=== PATIENT | male | born 1960 | race Caucasian/White ===

== ENCOUNTER 2021-05-14 16:25 | Inpatient (IN) | payer SELFPAY ==
[~2021-05-14] VITALS: Ht 170.2 cm; Wt 64.1 kg
[2021-05-14] MEDS ORDERED: AZITHROMYCIN 500MG/ 250ML 250 ML IV ONE (17:15)
[2021-05-14] MEDS ORDERED: methylPREDNISolone SOD SUCC 125 MG/2 ML VL IV ONE (17:15)
[2021-05-14 18:01] LABS: Basophils # (auto) 0.1 10 ^3/uL (0-0.2); Basophils % (auto) 1.4 % (0.0-2.0); Eosinophils # (auto) 0 10 ^3/uL (0-0.8); Eosinophils % (auto) 0.1 % (0.0-7.0); Hematocrit 41.7 % (41.0-53.0); Lymphocytes # (auto) 0.7 10 ^3/uL (0.4-5.4); Lymphocytes % (auto) 7.2 % (10.0-50.0); Mean Corpuscular Hemoglobin 30.8 pg (28.0-32.0); Mean Corpuscular Hgb Conc. 33.5 g/dL (32.0-36.0); Mean Corpuscular Volume 91.9 fL (80.0-100.0); Monocytes # (auto) 0.6 10 ^3/uL (0-1.3); Monocytes % (auto) 6.6 % (0.0-12.0); Neutrophils # (auto) 8.1 10 ^3/uL (1.6-8.6); Neutrophils % (auto) 84.7 % (37.0-80.0); Red Blood Cells 4.54 10^6/uL (4.5-5.90); Red Cell Distribution Width 15.5 % (11.8-14.3); White Blood Cell 9.6 10^3/uL (4.4-10.8)
[2021-05-14 18:20] LABS: Calcium 8.6 mg/dL (8.5-10.1)
[2021-05-14] MEDS ORDERED: IOHEXOL 350 MG/ML 100ML IJ ONE (20:02)
[2021-05-14 20:59] LABS: Urine Bacteria NONE SEEN /hpf (None Seen); Urine Blood Negative /uL (Negative); Urine Specific Gravity 1.007 (1.001-1.035); Urine WBC 2 /hpf (0 - 3)
[2021-05-14] MEDS ORDERED: ONDANSETRON HCL 4 MG/2 ML VIAL IV PRN (23:00)
[2021-05-14] MEDS ORDERED: ACETAMINOPHEN 325 MG TAB PO PRN (23:00)
[2021-05-14] MEDS ORDERED: IPRATROPIUM BROM 0.5 MG/2.5ML INH SOL NEB PRN (23:00)
[2021-05-14] MEDS ORDERED: guaiFENesin 200 MG/10 ML UD GT PRN (23:00)
[2021-05-14] MEDS ORDERED: ALBUTEROL SULF 2.5 MG/0.5ML(0.5%) NEB SOLN NEB PRN (23:00)
[2021-05-14 23:36] VITALS: BP 143/92
[2021-05-14 23:50] VITALS: BP 150/105
[2021-05-15 00:04] LABS: Alcohol, Urine < 3.0 mg/dL (0-10); Amphetamine Screen, Urine NEGATIVE (NEGATIVE); Barbiturate Scree,Urine NEGATIVE (NEGATIVE); Benzodiazephine Screen, Urine NEGATIVE (NEGATIVE); Cannabinoid Screen, Urine POSITIVE (NEGATIVE); Cocaine Screen, Urine POSITIVE (NEGATIVE); Opiate Scree,Urine NEGATIVE (NEGATIVE); Phencyclidine Screen, Urine POSITIVE (NEGATIVE)
[2021-05-15] MEDS: ALBUTEROL SULF 2.5 MG/0.5ML(0.5%) NEB SOLN NEB SCH ×5 (00:06→18:17)
[2021-05-15] MEDS: IPRATROPIUM BROM 0.5 MG/2.5ML INH SOL NEB SCH ×5 (00:06→18:17)
[2021-05-15] MEDS ORDERED: NICO14DI29 TOP (00:38)
[2021-05-15] MEDS ORDERED: FLUC200T50 PO (00:38)
[2021-05-15] MEDS ORDERED: PANT40T PO (00:38)
[2021-05-15] MEDS ORDERED: MONT-8 PO (00:38)
[2021-05-15] MEDS ORDERED: SULF400T (00:38)
[2021-05-15 05:51] LABS: Basophils # (auto) 0.1 10 ^3/uL (0-0.2); Basophils % (auto) 0.8 % (0.0-2.0); Eosinophils # (auto) 0 10 ^3/uL (0-0.8); Eosinophils % (auto) 0.1 % (0.0-7.0); Hematocrit 42.9 % (41.0-53.0); Hemoglobin 14.6 g/dL (13.5-17.5); Lymphocytes # (auto) 0.5 10 ^3/uL (0.4-5.4); Lymphocytes % (auto) 4.8 % (10.0-50.0); Mean Corpuscular Hemoglobin 31.5 pg (28.0-32.0); Mean Corpuscular Hgb Conc. 34.1 g/dL (32.0-36.0); Mean Corpuscular Volume 92.4 fL (80.0-100.0); Monocytes # (auto) 0.1 10 ^3/uL (0-1.3); Neutrophils # (auto) 8.8 10 ^3/uL (1.6-8.6); Neutrophils % (auto) 93.3 % (37.0-80.0); Red Blood Cells 4.64 10^6/uL (4.5-5.90); Red Cell Distribution Width 15.3 % (11.8-14.3); White Blood Cell 9.5 10^3/uL (4.4-10.8)
[2021-05-15 06:19] LABS: BUN/Creatinine Ratio 18.1
[2021-05-15 06:20] LABS: Bilirubin, Total 0.7 mg/dL (0.2-1.0); Calcium 9.2 mg/dL (8.5-10.1); Total Protein 7.3 g/dL (6.4-8.2)
[2021-05-15] MEDS: methylPREDNISolone SOD SUCC 125 MG/2 ML VL IV SCH ×6 (06:20→23:55)
[2021-05-15 09:00] VITALS: BP 152/116
[2021-05-15 09:30] VITALS: BP 147/94
[2021-05-15] MEDS: FAMOTIDINE 20 MG TAB PO SCH (10:50)
[2021-05-15] MEDS: ENOXAPARIN SOD 40 MG/0.4 ML SYRINGE SC SCH (10:50)
[2021-05-15] MEDS: NICOTINE 14 MG/24HR TOPICAL PATCH TD SCH (10:50)
[2021-05-15] MEDS: levoFLOXacin 750MG 150 ML IV SCH (10:52)
[2021-05-15 13:00] VITALS: BP 156/110
[2021-05-15 17:00] VITALS: BP 157/88
[2021-05-15 22:11] VITALS: BP 158/94
[2021-05-16] MEDS: ALBUTEROL SULF 2.5 MG/0.5ML(0.5%) NEB SOLN NEB SCH ×4 (00:11→18:47)
[2021-05-16] MEDS: IPRATROPIUM BROM 0.5 MG/2.5ML INH SOL NEB SCH ×4 (00:11→18:47)
[2021-05-16 05:00] VITALS: BP 150/102
[2021-05-16 05:52] LABS: Hematocrit 41.5 % (41.0-53.0); Hemoglobin 13.7 g/dL (13.5-17.5); Mean Corpuscular Hemoglobin 30.7 pg (28.0-32.0); Mean Corpuscular Hgb Conc. 33.1 g/dL (32.0-36.0); Red Blood Cells 4.46 10^6/uL (4.5-5.90); Red Cell Distribution Width 15.6 % (11.8-14.3); White Blood Cell 16.8 10^3/uL (4.4-10.8)
[2021-05-16] MEDS: methylPREDNISolone SOD SUCC 125 MG/2 ML VL IV SCH (06:00)
[2021-05-16 06:12] LABS: Potassium 4.9 mmol/L (3.5-5.1)
[2021-05-16 06:19] LABS: Albumin 3.1 g/dL (3.4-5.0); Calcium 9.4 mg/dL (8.5-10.1)
[2021-05-16 06:21] LABS: Bilirubin, Total 0.6 mg/dL (0.2-1.0); Total Protein 7.2 g/dL (6.4-8.2)
[2021-05-16 06:27] LABS: Basophils % (manual) 0 (0.0-2.0); Blast Cells 0; Eosinophils % (manual) 0 (0-7); Metamyelocytes % 0; Monocytes % (manual) 0 (0-12); Myelocytes % 0; Promyelocytes % 0; Reactive Lymphocytes 0
[2021-05-16 07:31] LABS: Band Neutrophils % (manual) 12; Lymphocytes % (manual) 3 (10.0-50.0)
[2021-05-16 08:33] VITALS: BP 143/93
[2021-05-16] MEDS: levoFLOXacin 750MG 150 ML IV SCH (09:26)
[2021-05-16] MEDS: ENOXAPARIN SOD 40 MG/0.4 ML SYRINGE SC SCH (09:27)
[2021-05-16] MEDS: FAMOTIDINE 20 MG TAB PO SCH (09:33)
[2021-05-16] MEDS: NICOTINE 14 MG/24HR TOPICAL PATCH TD SCH (09:33)
[2021-05-16 13:00] VITALS: BP_SYST 102; BP_SYST 156; BP_DIAS 104; BP_DIAS 70
[2021-05-16 17:00] VITALS: BP 147/103
[2021-05-16 21:35] VITALS: BP 151/100
[2021-05-17 04:38] VITALS: BP 144/101
[2021-05-17] MEDS: IPRATROPIUM BROM 0.5 MG/2.5ML INH SOL NEB SCH ×2 (06:19)
[2021-05-17] MEDS: ALBUTEROL SULF 2.5 MG/0.5ML(0.5%) NEB SOLN NEB SCH ×2 (06:19)
[2021-05-17 08:00] VITALS: BP 146/98
[2021-05-17 09:00] VITALS: BP 146/98
== END 2021-05-17 10:45 | disposition home or self-care (01) | DRG 199 ==
LOC: ER 16:25 → EDBD 16:25 → OVERFLOW 22:54 → WEST WING 23:44
PROVIDERS: ADMIT Internal Medicine; ATTEND Internal Medicine
DX: J93.9 Pneumothorax, unspecified (principal); J96.21 Acute and chronic respiratory failure with hypoxia; J44.1 Chronic obstructive pulmonary disease with (acute) exacerbation; E78.5 Hyperlipidemia, unspecified; F17.210 Nicotine dependence, cigarettes, uncomplicated; I10 Essential (primary) hypertension; Z21 Asymptomatic human immunodeficiency virus [HIV] infection status; Z20.822 Contact with and (suspected) exposure to COVID-19; R07.89 Other chest pain; Z88.1 Allergy status to other antibiotic agents; Z59.00 Homelessness unspecified; Z82.49 Family history of ischemic heart disease and other diseases of the circulatory system; Z82.5 Family history of asthma and other chronic lower respiratory diseases; Z99.81 Dependence on supplemental oxygen; Z88.6 Allergy status to analgesic agent; Z88.8 Allergy status to other drugs, medicaments and biological substances
CPT/HCPCS: 36415; 71045; 71275; 80053; 80307; 81001; 82962; 83605; 83880; 84484; 85007; 85025; 85027; 85379; 86738; 87040; 87278; 87804; 93306; 94640; 96365; 96375; G0378; J1956

== ENCOUNTER 2021-05-25 13:02 | Inpatient (IN) | payer MEDICAID, SELFPAY ==
[~2021-05-25] VITALS: Ht 165.1 cm; Wt 65.1 kg
[~2021-05-25 13:02] MED LIST: FLUC200T50 PO; MONT-8 PO; NICO14DI29 TOP; PANT40T PO
[2021-05-25 14:51] LABS: Basophils # (auto) 0.1 10 ^3/uL (0-0.2); Basophils % (auto) 3.1 % (0.0-2.0); Eosinophils # (auto) 0.1 10 ^3/uL (0-0.8); Eosinophils % (auto) 2.6 % (0.0-7.0); Hematocrit 41.6 % (41.0-53.0); Hemoglobin 14.1 g/dL (13.5-17.5); Lymphocytes # (auto) 0.9 10 ^3/uL (0.4-5.4); Lymphocytes % (auto) 22.4 % (10.0-50.0); Mean Corpuscular Hemoglobin 31.6 pg (28.0-32.0); Mean Corpuscular Hgb Conc. 33.9 g/dL (32.0-36.0); Mean Corpuscular Volume 93.1 fL (80.0-100.0); Monocytes # (auto) 0.3 10 ^3/uL (0-1.3); Monocytes % (auto) 8.6 % (0.0-12.0); Neutrophils # (auto) 2.5 10 ^3/uL (1.6-8.6); Neutrophils % (auto) 63.3 % (37.0-80.0); Nucleated Red Blood Cells % 0.1 %; Red Blood Cells 4.47 10^6/uL (4.5-5.90); Red Cell Distribution Width 15.5 % (11.8-14.3)
[2021-05-25 15:09] LABS: Albumin 3.1 g/dL (3.4-5.0); BUN/Creatinine Ratio 20.6; Calcium 9.4 mg/dL (8.5-10.1); Potassium 4.6 mmol/L (3.5-5.1)
[2021-05-25 15:14] LABS: Bilirubin, Total 0.5 mg/dL (0.2-1.0)
[2021-05-25] MEDS: ALBUTEROL SULF 2.5 MG/0.5ML(0.5%) NEB SOLN NEB SCH (18:00)
[2021-05-25] MEDS: IPRATROPIUM BROM 0.5 MG/2.5ML INH SOL NEB SCH (18:00)
[2021-05-25] MEDS: levoFLOXacin 250 MG TAB PO SCH (18:18)
[2021-05-25] MEDS ORDERED: levoFLOXacin 250 MG TAB ONE (18:18)
[2021-05-25 19:12] VITALS: BP 156/101
[2021-05-25] MEDS: TAMSULOSIN HYDROCHLORIDE 0.4 MG CAP PO SCH (20:12)
[2021-05-25 21:30] VITALS: BP 153/95
[2021-05-25 22:00] VITALS: BP 145/103
[2021-05-26 05:00] VITALS: BP 138/95
[2021-05-26] MEDS: IPRATROPIUM BROM 0.5 MG/2.5ML INH SOL NEB SCH ×4 (07:12→18:03)
[2021-05-26] MEDS: ALBUTEROL SULF 2.5 MG/0.5ML(0.5%) NEB SOLN NEB SCH ×4 (07:12→18:03)
[2021-05-26 08:00] VITALS: BP 147/103
[2021-05-26] MEDS ORDERED: predniSONE 20 MG TAB PO ONE (10:00)
[2021-05-26] MEDS: levoFLOXacin 250 MG TAB PO SCH (10:32)
[2021-05-26] MEDS: ENOXAPARIN SOD 40 MG/0.4 ML SYRINGE SC SCH (10:33)
[2021-05-26] MEDS ORDERED: FAMOTIDINE 20 MG TAB PO ONE (11:00)
[2021-05-26 12:00] VITALS: BP 135/85
[2021-05-26 16:00] VITALS: BP 114/73
[2021-05-26] MEDS: TAMSULOSIN HYDROCHLORIDE 0.4 MG CAP PO SCH (18:19)
[2021-05-26] MEDS: methylPREDNISolone SOD SUCC 40 MG/ML VL IV SCH (21:39)
[2021-05-26 22:00] VITALS: BP 129/93
[2021-05-27 05:00] VITALS: BP 122/83
[2021-05-27 06:04] LABS: Basophils # (auto) 0 10 ^3/uL (0-0.2); Basophils % (auto) 0.2 % (0.0-2.0); Eosinophils # (auto) 0 10 ^3/uL (0-0.8); Hematocrit 40.9 % (41.0-53.0); Hemoglobin 13.8 g/dL (13.5-17.5); Lymphocytes # (auto) 0.5 10 ^3/uL (0.4-5.4); Lymphocytes % (auto) 13.4 % (10.0-50.0); Mean Corpuscular Hemoglobin 31.5 pg (28.0-32.0); Mean Corpuscular Hgb Conc. 33.8 g/dL (32.0-36.0); Mean Corpuscular Volume 93.4 fL (80.0-100.0); Monocytes # (auto) 0.1 10 ^3/uL (0-1.3); Monocytes % (auto) 1.8 % (0.0-12.0); Neutrophils # (auto) 3.2 10 ^3/uL (1.6-8.6); Neutrophils % (auto) 84.6 % (37.0-80.0); Nucleated Red Blood Cells % 0.1 %; Red Blood Cells 4.38 10^6/uL (4.5-5.90); Red Cell Distribution Width 15.9 % (11.8-14.3); White Blood Cell 3.8 10^3/uL (4.4-10.8)
[2021-05-27 06:25] LABS: Potassium 5.3 mmol/L (3.5-5.1)
[2021-05-27 06:29] LABS: BUN/Creatinine Ratio 17.7
[2021-05-27] MEDS: ALBUTEROL SULF 2.5 MG/0.5ML(0.5%) NEB SOLN NEB SCH ×4 (06:51→18:14)
[2021-05-27] MEDS: IPRATROPIUM BROM 0.5 MG/2.5ML INH SOL NEB SCH ×4 (06:51→18:14)
[2021-05-27 08:44] VITALS: BP 131/88
[2021-05-27] MEDS ORDERED: MONT-8 PO (09:23)
[2021-05-27] MEDS ORDERED: FAMOTIDINE 20 MG TAB PO SCH (10:00)
[2021-05-27] MEDS: methylPREDNISolone SOD SUCC 40 MG/ML VL IV SCH ×2 (10:13→21:23)
[2021-05-27] MEDS: levoFLOXacin 250 MG TAB PO SCH (10:13)
[2021-05-27] MEDS: ENOXAPARIN SOD 40 MG/0.4 ML SYRINGE SC SCH (10:14)
[2021-05-27] MEDS ORDERED: DEXTROSE (50%) 50ML SYRG IV ONE (10:45)
[2021-05-27] MEDS ORDERED: SODIUM ZIRCONIUM CYCL 10 GM PAK PO ONE (10:45)
[2021-05-27] MEDS ORDERED: InsuLIN REG 1unit/0.01ml Soln (100units/ml) IV ONE (10:45)
[2021-05-27] MEDS ORDERED: ALBUTEROL SULF 2.5 MG/0.5ML(0.5%) NEB SOLN NEB ONE (10:45)
[2021-05-27] MEDS ORDERED: SODIUM BICARBONATE 8.4% INJ 50ML SYRINGE IV ONE (10:45)
[2021-05-27] MEDS ORDERED: FUROSEMIDE 20 MG/2 ML VIAL IV ONE (10:45)
[2021-05-27 12:21] LABS: INR 1.12 (0.9-1.15)
[2021-05-27] MEDS ORDERED: FUROSEMIDE 20 MG/2 ML VIAL ONE (12:48)
[2021-05-27] MEDS ORDERED: InsuLIN REG 1unit/0.01ml Soln (100units/ml) ONE (12:54)
[2021-05-27 13:00] VITALS: BP 151/98
[2021-05-27 17:00] VITALS: BP 150/90
[2021-05-27] MEDS: TAMSULOSIN HYDROCHLORIDE 0.4 MG CAP PO SCH (18:31)
[2021-05-27 21:02] LABS: Urine Bacteria NONE SEEN /hpf (None Seen); Urine Blood Negative /uL (Negative); Urine Specific Gravity 1.009 (1.001-1.035); Urine WBC <1 /hpf (0 - 3)
[2021-05-27 22:00] VITALS: BP 119/83
[2021-05-28] MEDS: IPRATROPIUM BROM 0.5 MG/2.5ML INH SOL NEB SCH ×2 (00:07→06:25)
[2021-05-28] MEDS: ALBUTEROL SULF 2.5 MG/0.5ML(0.5%) NEB SOLN NEB SCH ×2 (00:08→06:25)
[2021-05-28 05:00] VITALS: BP 126/78
[2021-05-28 07:04] LABS: Basophils # (auto) 0 10 ^3/uL (0-0.2); Basophils % (auto) 0.1 % (0.0-2.0); Eosinophils # (auto) 0 10 ^3/uL (0-0.8); Hematocrit 40.1 % (41.0-53.0); Hemoglobin 13.8 g/dL (13.5-17.5); Lymphocytes # (auto) 0.6 10 ^3/uL (0.4-5.4); Lymphocytes % (auto) 7.8 % (10.0-50.0); Mean Corpuscular Hemoglobin 32.1 pg (28.0-32.0); Mean Corpuscular Hgb Conc. 34.6 g/dL (32.0-36.0); Monocytes # (auto) 0.2 10 ^3/uL (0-1.3); Monocytes % (auto) 2.4 % (0.0-12.0); Neutrophils # (auto) 6.8 10 ^3/uL (1.6-8.6); Neutrophils % (auto) 89.7 % (37.0-80.0); Nucleated Red Blood Cells % 0.1 %; Red Blood Cells 4.31 10^6/uL (4.5-5.90); Red Cell Distribution Width 15.8 % (11.8-14.3); White Blood Cell 7.6 10^3/uL (4.4-10.8)
[2021-05-28 07:09] LABS: Potassium 5.1 mmol/L (3.5-5.1)
[2021-05-28 07:17] LABS: BUN/Creatinine Ratio 21.4; Calcium 9.1 mg/dL (8.5-10.1)
[2021-05-28 08:42] VITALS: BP 141/97
== END 2021-05-28 10:30 | disposition left against medical advice (07) | DRG 189 ==
LOC: EDBD 13:02 → ER 13:02 → TELE 17:16 → TELE-EAST 21:22
PROVIDERS: ADMIT Student in an Organized Health Care Education/Training Program; ATTEND Internal Medicine Pulmonary Disease
DX: J96.01 Acute respiratory failure with hypoxia (principal); J94.8 Other specified pleural conditions; J44.1 Chronic obstructive pulmonary disease with (acute) exacerbation; I50.20 Unspecified systolic (congestive) heart failure; R91.8 Other nonspecific abnormal finding of lung field; Z53.29 Procedure and treatment not carried out because of patient's decision for other reasons; Z20.822 Contact with and (suspected) exposure to COVID-19; I11.0 Hypertensive heart disease with heart failure; Z59.00 Homelessness unspecified; Z82.5 Family history of asthma and other chronic lower respiratory diseases; Z72.0 Tobacco use; Z71.6 Tobacco abuse counseling
CPT/HCPCS: 36415; 71045; 71250; 76604; 80048; 80053; 81001; 82962; 84484; 85025; 85610; 85730; 87081; 93005; 94640; 96372; G0378; J1815

== ENCOUNTER 2022-09-03 11:42 | Inpatient (IN) | payer MEDICAID ==
[~2022-09-03] VITALS: Ht 172.7 cm; Wt 66.1 kg
[~2022-09-03 11:42] MED LIST changes: -FLUC200T50 PO
[2022-09-03 13:58] LABS: Basophils # (auto) 0 10 ^3/uL (0-0.2); Basophils % (auto) 0.4 % (0.0-2.0); Eosinophils # (auto) 0 10 ^3/uL (0-0.8); Eosinophils % (auto) 0.7 % (0.0-7.0); Hematocrit 44.9 % (41.0-53.0); Hemoglobin 14.7 g/dL (13.5-17.5); Lymphocytes % (auto) 23.9 % (10.0-50.0); Mean Corpuscular Hemoglobin 32.1 pg (28.0-32.0); Mean Corpuscular Hgb Conc. 32.7 g/dL (32.0-36.0); Mean Corpuscular Volume 97.9 fL (80.0-100.0); Monocytes # (auto) 0.3 10 ^3/uL (0-1.3); Monocytes % (auto) 8.2 % (0.0-12.0); Neutrophils # (auto) 2.8 10 ^3/uL (1.6-8.6); Neutrophils % (auto) 66.8 % (37.0-80.0); Nucleated Red Blood Cells % 0.1 %; Red Blood Cells 4.58 10^6/uL (4.5-5.90); Red Cell Distribution Width 13.7 % (11.8-14.3); White Blood Cell 4.1 10^3/uL (4.4-10.8)
[2022-09-03 14:33] LABS: Albumin 3.6 g/dL (3.4-5.0); Calcium 8.8 mg/dL (8.5-10.1); Potassium 4.2 mmol/L (3.5-5.1)
[2022-09-03 14:37] LABS: BUN/Creatinine Ratio 15.9 (10.0-20.0); Bilirubin, Total 0.6 mg/dL (0.2-1.0); Total Protein 6.8 g/dL (6.4-8.2)
[2022-09-03 16:22] LABS: Urine Bacteria NONE SEEN /hpf (None Seen); Urine Blood Negative /uL (Negative); Urine Specific Gravity 1.012 (1.001-1.035); Urine WBC 2 /hpf (0 - 3)
[2022-09-03] MEDS ORDERED: IPRATROPIUM BROM 0.5 MG/2.5ML INH SOL NEB SCH (20:00)
[2022-09-03] MEDS ORDERED: DOCUSATE SOD 100 MG CAP PO PRN (20:00)
[2022-09-03] MEDS ORDERED: ONDANSETRON HCL 4 MG/2 ML VIAL IV PRN (20:00)
[2022-09-03] MEDS ORDERED: ACETAMINOPHEN 325 MG TAB PO PRN (20:00)
[2022-09-03] MEDS ORDERED: ALBUTEROL SULF 2.5 MG/0.5ML(0.5%) NEB SOLN NEB PRN ×2 (20:00→20:30)
[2022-09-03] MEDS ORDERED: ALBUTEROL SULF 2.5 MG/0.5ML(0.5%) NEB SOLN NEB SCH (20:00)
[2022-09-03] MEDS ORDERED: hydrALAZINE HCL 20 MG/ML VL IV PRN (20:15)
[2022-09-03 20:39] VITALS: BP 144/111
[2022-09-03] MEDS: SODIUM CHLOR 0.9% PF (SALINE LOCK) 10ML VIAL/SYR IV SCH (22:11)
[2022-09-03] MEDS: DexAMETHasone SOD PHOS 4 MG/1ML SDV INJ IV SCH (22:15)
[2022-09-03] MEDS: MONTELUKAST SODIUM 10 MG TAB PO SCH (22:15)
[2022-09-04] MEDS: ALBUTEROL SULF 2.5 MG/0.5ML(0.5%) NEB SOLN NEB SCH ×4 (06:29→18:28)
[2022-09-04] MEDS: IPRATROPIUM BROM 0.5 MG/2.5ML INH SOL NEB SCH ×4 (06:29→18:28)
[2022-09-04] MEDS: DexAMETHasone SOD PHOS 4 MG/1ML SDV INJ IV SCH ×3 (06:53→22:18)
[2022-09-04] MEDS: SODIUM CHLOR 0.9% PF (SALINE LOCK) 10ML VIAL/SYR IV SCH ×3 (06:53→22:19)
[2022-09-04] MEDS: PANTOPRAZOLE 40 MG TAB PO SCH (07:06)
[2022-09-04] MEDS ORDERED: NICOTINE 14 MG/24HR TOPICAL PATCH TD PRN (10:00)
[2022-09-04] MEDS ORDERED: NICOTINE 21MG/24 HR TOPICAL PATCH TD ONE (11:15)
[2022-09-04] MEDS: ENOXAPARIN SOD 40 MG/0.4 ML SYRINGE SC SCH (11:27)
[2022-09-04 11:33] LABS: Alcohol, Urine < 3.0 mg/dL (0-10); Amphetamine Screen, Urine NEGATIVE (NEGATIVE); Barbiturate Scree,Urine NEGATIVE (NEGATIVE); Benzodiazephine Screen, Urine NEGATIVE (NEGATIVE); Cannabinoid Screen, Urine POSITIVE (NEGATIVE); Cocaine Screen, Urine NEGATIVE (NEGATIVE)
[2022-09-04 11:41] LABS: Opiate Scree,Urine NEGATIVE (NEGATIVE); Phencyclidine Screen, Urine NEGATIVE (NEGATIVE)
[2022-09-04] MEDS: HYDROcodone-ACET 5/325MG TAB PO PRN ×2 (15:43→22:18)
[2022-09-04 22:00] VITALS: BP 142/99
[2022-09-04] MEDS: MONTELUKAST SODIUM 10 MG TAB PO SCH (22:19)
[2022-09-05 04:45] VITALS: BP 149/96
[2022-09-05] MEDS: SODIUM CHLOR 0.9% PF (SALINE LOCK) 10ML VIAL/SYR IV SCH ×2 (06:04→13:56)
[2022-09-05] MEDS: HYDROcodone-ACET 5/325MG TAB PO PRN (06:08)
[2022-09-05] MEDS: DexAMETHasone SOD PHOS 4 MG/1ML SDV INJ IV SCH ×2 (06:08→13:56)
[2022-09-05] MEDS: PANTOPRAZOLE 40 MG TAB PO SCH (06:08)
[2022-09-05 06:21] LABS: Basophils # (auto) 0 10 ^3/uL (0-0.2); Basophils % (auto) 0.1 % (0.0-2.0); Eosinophils # (auto) 0 10 ^3/uL (0-0.8); Hematocrit 46.3 % (41.0-53.0); Hemoglobin 15.4 g/dL (13.5-17.5); Lymphocytes # (auto) 0.9 10 ^3/uL (0.4-5.4); Lymphocytes % (auto) 9.5 % (10.0-50.0); Mean Corpuscular Hemoglobin 32.6 pg (28.0-32.0); Mean Corpuscular Hgb Conc. 33.2 g/dL (32.0-36.0); Mean Corpuscular Volume 98.4 fL (80.0-100.0); Monocytes # (auto) 0.4 10 ^3/uL (0-1.3); Neutrophils # (auto) 8.4 10 ^3/uL (1.6-8.6); Neutrophils % (auto) 86.4 % (37.0-80.0); Red Blood Cells 4.71 10^6/uL (4.5-5.90); Red Cell Distribution Width 13.6 % (11.8-14.3); White Blood Cell 9.7 10^3/uL (4.4-10.8)
[2022-09-05 06:34] LABS: BUN/Creatinine Ratio 15.7 (10.0-20.0); Calcium 9.6 mg/dL (8.5-10.1)
[2022-09-05] MEDS: IPRATROPIUM BROM 0.5 MG/2.5ML INH SOL NEB SCH ×3 (06:44→13:15)
[2022-09-05] MEDS: ALBUTEROL SULF 2.5 MG/0.5ML(0.5%) NEB SOLN NEB SCH ×3 (06:44→13:15)
[2022-09-05 09:00] VITALS: BP 150/92
[2022-09-05] MEDS: ENOXAPARIN SOD 40 MG/0.4 ML SYRINGE SC SCH (09:41)
[2022-09-05] MEDS ORDERED: NICOTINE 21MG/24 HR TOPICAL PATCH TD SCH (10:00)
[2022-09-05 13:00] VITALS: BP 151/90
[2022-09-05 17:00] VITALS: BP 172/111
== END 2022-09-05 18:06 | disposition left against medical advice (07) | DRG 140 ==
LOC: ER 11:42 → EDBD 11:42 → OVERFLOW 20:01 → EAST 09-04 20:40
PROVIDERS: ADMIT Internal Medicine; ATTEND Internal Medicine
DX: J44.1 Chronic obstructive pulmonary disease with (acute) exacerbation (principal); J96.01 Acute respiratory failure with hypoxia; I11.0 Hypertensive heart disease with heart failure; I50.42 Chronic combined systolic (congestive) and diastolic (congestive) heart failure; D72.819 Decreased white blood cell count, unspecified; F12.90 Cannabis use, unspecified, uncomplicated; Z53.21 Procedure and treatment not carried out due to patient leaving prior to being seen by health care provider; F17.210 Nicotine dependence, cigarettes, uncomplicated; Z59.00 Homelessness unspecified; Z88.6 Allergy status to analgesic agent; Z88.1 Allergy status to other antibiotic agents; Z88.8 Allergy status to other drugs, medicaments and biological substances; Z71.6 Tobacco abuse counseling
CPT/HCPCS: 36415; 36600; 71045; 80048; 80053; 80307; 81001; 82805; 82962; 83880; 84484; 85025; 93005; 94640; 99291; G0378; J1100

== ENCOUNTER 2022-09-05 18:27 | Inpatient (IN) | payer MEDICAID ==
[~2022-09-05] VITALS: Ht 170.2 cm; Wt 65.9 kg
[2022-09-05] MEDS ORDERED: cloNIDine HCL 0.1 MG TAB PO ONE (20:15)
[2022-09-05 20:18] LABS: Basophils # (auto) 0.1 10 ^3/uL (0-0.2); Basophils % (auto) 0.3 % (0.0-2.0); Eosinophils # (auto) 0 10 ^3/uL (0-0.8); Hemoglobin 16.1 g/dL (13.5-17.5); Lymphocytes # (auto) 0.8 10 ^3/uL (0.4-5.4); Lymphocytes % (auto) 5.1 % (10.0-50.0); Mean Corpuscular Hgb Conc. 32.9 g/dL (32.0-36.0); Mean Corpuscular Volume 97.4 fL (80.0-100.0); Monocytes # (auto) 0.3 10 ^3/uL (0-1.3); Monocytes % (auto) 2.1 % (0.0-12.0); Neutrophils # (auto) 13.9 10 ^3/uL (1.6-8.6); Neutrophils % (auto) 92.5 % (37.0-80.0); Red Blood Cells 5.03 10^6/uL (4.5-5.90); Red Cell Distribution Width 13.7 % (11.8-14.3)
[2022-09-05 20:33] LABS: Albumin 4.2 g/dL (3.4-5.0); Magnesium 2.6 mg/dL (1.6-2.6)
[2022-09-05 20:35] LABS: INR 1.07 (0.9-1.15); Partial Thromboplastin Time 30.6 SEC (24.5-34.5)
[2022-09-05 20:36] LABS: Bilirubin, Total 0.7 mg/dL (0.2-1.0); Total Protein 8.2 g/dL (6.4-8.2)
[2022-09-06] MEDS ORDERED: ACETAMINOPHEN 325 MG TAB PO PRN
[2022-09-06] MEDS ORDERED: NITROGLYCERIN 0.4 MG SL TAB SL PRN
[2022-09-06] MEDS ORDERED: hydrALAZINE HCL 20 MG/ML VL IV PRN
[2022-09-06] MEDS ORDERED: TEMAZEPAM 15 MG CAP PO PRN
[2022-09-06] MEDS ORDERED: MORPHINE SULFATE INJ 2 MG/ml SYRG IV PRN
[2022-09-06] MEDS ORDERED: ONDANSETRON HCL 4 MG/2 ML VIAL IV PRN
[2022-09-06] MEDS ORDERED: ALBUTEROL SULF 2.5 MG/0.5ML(0.5%) NEB SOLN NEB PRN
[2022-09-06 02:00] VITALS: BP 201/111
[2022-09-06 06:36] LABS: Basophils # (auto) 0 10 ^3/uL (0-0.2); Basophils % (auto) 0.3 % (0.0-2.0); Eosinophils # (auto) 0 10 ^3/uL (0-0.8); Hematocrit 46.6 % (41.0-53.0); Hemoglobin 15.3 g/dL (13.5-17.5); Lymphocytes # (auto) 1.2 10 ^3/uL (0.4-5.4); Lymphocytes % (auto) 11.6 % (10.0-50.0); Mean Corpuscular Hemoglobin 32.5 pg (28.0-32.0); Mean Corpuscular Hgb Conc. 32.9 g/dL (32.0-36.0); Mean Corpuscular Volume 98.8 fL (80.0-100.0); Monocytes # (auto) 0.6 10 ^3/uL (0-1.3); Monocytes % (auto) 5.6 % (0.0-12.0); Neutrophils # (auto) 8.7 10 ^3/uL (1.6-8.6); Neutrophils % (auto) 82.5 % (37.0-80.0); Nucleated Red Blood Cells % 0.1 %; Red Blood Cells 4.72 10^6/uL (4.5-5.90); Red Cell Distribution Width 13.6 % (11.8-14.3); White Blood Cell 10.6 10^3/uL (4.4-10.8)
[2022-09-06 06:45] LABS: BUN/Creatinine Ratio 20.9 (10.0-20.0); Calcium 9.5 mg/dL (8.5-10.1); Potassium 4.7 mmol/L (3.5-5.1)
[2022-09-06 08:43] LABS: Urine Bacteria NONE SEEN /hpf (None Seen); Urine Blood Negative /uL (Negative); Urine Specific Gravity 1.013 (1.001-1.035); Urine WBC 3 /hpf (0 - 3)
[2022-09-06 09:06] LABS: Amphetamine Screen, Urine NEGATIVE (NEGATIVE); Barbiturate Scree,Urine NEGATIVE (NEGATIVE); Cannabinoid Screen, Urine POSITIVE (NEGATIVE)
[2022-09-06 09:14] LABS: Alcohol, Urine < 3.0 mg/dL (0-10); Benzodiazephine Screen, Urine NEGATIVE (NEGATIVE); Cocaine Screen, Urine NEGATIVE (NEGATIVE); Opiate Scree,Urine NEGATIVE (NEGATIVE); Phencyclidine Screen, Urine NEGATIVE (NEGATIVE)
[2022-09-06] MEDS: PANTOPRAZOLE 40 MG TAB PO SCH (09:40)
[2022-09-06] MEDS: LISINOPRIL 5 MG TAB PO SCH (09:40)
[2022-09-06] MEDS: ENOXAPARIN SOD 30 MG/0.3 ML SYRINGE SC SCH (09:40)
[2022-09-06] MEDS: NICOTINE 14 MG/24HR TOPICAL PATCH TD SCH (09:40)
[2022-09-06] MEDS: METOPROLOL TARTRATE 25 MG TAB PO SCH ×2 (09:41→23:49)
[2022-09-06] MEDS: ALBUTEROL SULF 2.5 MG/0.5ML(0.5%) NEB SOLN NEB SCH (18:00)
[2022-09-06] MEDS: IPRATROPIUM BROM 0.5 MG/2.5ML INH SOL NEB SCH (18:00)
[2022-09-06] MEDS: ATORVASTATIN 20 MG TAB PO SCH (23:49)
[2022-09-07] MEDS: IPRATROPIUM BROM 0.5 MG/2.5ML INH SOL NEB SCH ×3 (05:58→19:05)
[2022-09-07] MEDS: ALBUTEROL SULF 2.5 MG/0.5ML(0.5%) NEB SOLN NEB SCH ×3 (05:58→19:05)
[2022-09-07] MEDS: ENOXAPARIN SOD 30 MG/0.3 ML SYRINGE SC SCH (10:07)
[2022-09-07] MEDS: LISINOPRIL 5 MG TAB PO SCH (10:07)
[2022-09-07] MEDS: METOPROLOL TARTRATE 25 MG TAB PO SCH ×2 (10:07→21:58)
[2022-09-07] MEDS: PANTOPRAZOLE 40 MG TAB PO SCH (10:07)
[2022-09-07] MEDS: NICOTINE 14 MG/24HR TOPICAL PATCH TD SCH (10:08)
[2022-09-07 11:54] VITALS: BP 136/86
[2022-09-07] MEDS ORDERED: CLOPIDOGREL BISULFATE 75 MG TAB PO ONE (15:00)
[2022-09-07 16:57] VITALS: BP 136/85
[2022-09-07 17:53] VITALS: BP 136/85
[2022-09-07] MEDS: BUDESONIDE (INHALATION) 0.5 MG/2 ML NEB NEB SCH (19:04)
[2022-09-07] MEDS: ATORVASTATIN 20 MG TAB PO SCH (21:57)
[2022-09-07 22:00] VITALS: BP 157/111
[2022-09-08 05:00] VITALS: BP 133/91
[2022-09-08] MEDS: ALBUTEROL SULF 2.5 MG/0.5ML(0.5%) NEB SOLN NEB SCH ×2 (06:06→12:12)
[2022-09-08] MEDS: BUDESONIDE (INHALATION) 0.5 MG/2 ML NEB NEB SCH (06:06)
[2022-09-08] MEDS: IPRATROPIUM BROM 0.5 MG/2.5ML INH SOL NEB SCH ×2 (06:06→12:13)
[2022-09-08 09:00] VITALS: BP 160/107
[2022-09-08] MEDS ORDERED: amLODIPine BESYLATE 5 MG TAB PO SCH (10:00)
[2022-09-08] MEDS ORDERED: CLOPIDOGREL BISULFATE 75 MG TAB PO SCH (10:00)
[2022-09-08] MEDS: NICOTINE 14 MG/24HR TOPICAL PATCH TD SCH (10:00)
[2022-09-08] MEDS ORDERED: BUDE1AER4 IN (10:09)
[2022-09-08] MEDS ORDERED: LISI-275 PO (10:09)
[2022-09-08] MEDS ORDERED: AML5T PO (10:09)
[2022-09-08] MEDS ORDERED: ALBUAER3 IN (10:09)
[2022-09-08 11:33] VITALS: BP 145/99
[2022-09-08] MEDS: ENOXAPARIN SOD 30 MG/0.3 ML SYRINGE SC SCH (11:50)
[2022-09-08] MEDS: PANTOPRAZOLE 40 MG TAB PO SCH (11:50)
[2022-09-08] MEDS: METOPROLOL TARTRATE 25 MG TAB PO SCH (11:51)
[2022-09-08] MEDS: LISINOPRIL 5 MG TAB PO SCH (11:51)
== END 2022-09-08 13:50 | disposition home or self-care (01) | DRG 133 ==
LOC: ER 18:27 → TELE 09-06 00:04 → TELE-CENTR 09-07 12:13
PROVIDERS: ADMIT Nurse Practitioner Acute Care; ATTEND Nurse Practitioner Acute Care
DX: J96.21 Acute and chronic respiratory failure with hypoxia (principal); I50.43 Acute on chronic combined systolic (congestive) and diastolic (congestive) heart failure; N17.9 Acute kidney failure, unspecified; I27.20 Pulmonary hypertension, unspecified; I20.0 Unstable angina; I13.0 Hypertensive heart and chronic kidney disease with heart failure and stage 1 through stage 4 chronic kidney disease, or unspecified chronic kidney disease; E78.5 Hyperlipidemia, unspecified; I16.0 Hypertensive urgency; J43.9 Emphysema, unspecified; F17.210 Nicotine dependence, cigarettes, uncomplicated; N18.9 Chronic kidney disease, unspecified; F12.20 Cannabis dependence, uncomplicated; I25.2 Old myocardial infarction; Z59.00 Homelessness unspecified; Z91.199 Patient's noncompliance with other medical treatment and regimen due to unspecified reason; Z79.51 Long term (current) use of inhaled steroids; Z88.8 Allergy status to other drugs, medicaments and biological substances; Z82.49 Family history of ischemic heart disease and other diseases of the circulatory system; Z82.5 Family history of asthma and other chronic lower respiratory diseases; Z88.6 Allergy status to analgesic agent
CPT/HCPCS: 36415; 36600; 70450; 71045; 80048; 80053; 80307; 80320; 81001; 82805; 83735; 83880; 84484; 85025; 85379; 85610; 85730; 93005; 93306; 93886; 94640; G0378

== ENCOUNTER 2022-12-20 13:13 | Emergency (ER) | payer MEDICAID ==
[~2022-12-20] VITALS: Ht 170.2 cm; Wt 63.6 kg
[~2022-12-20 13:13] MED LIST changes: +ALBUAER3 IN; +AML5T PO; +BUDE1AER4 IN; +LISI-275 PO
[2022-12-20 13:45] VITALS: BP 172/110
[2022-12-20 13:57] LABS: Basophils # (auto) 0 10 ^3/uL (0-0.2); Basophils % (auto) 0.7 % (0.0-2.0); Eosinophils # (auto) 0 10 ^3/uL (0-0.8); Eosinophils % (auto) 1.3 % (0.0-7.0); Hematocrit 50.6 % (41.0-53.0); Hemoglobin 16.6 g/dL (13.5-17.5); Lymphocytes # (auto) 1.7 10 ^3/uL (0.4-5.4); Lymphocytes % (auto) 44.6 % (10.0-50.0); Mean Corpuscular Hemoglobin 31.8 pg (28.0-32.0); Mean Corpuscular Hgb Conc. 32.7 g/dL (32.0-36.0); Mean Corpuscular Volume 97.2 fL (80.0-100.0); Monocytes # (auto) 0.4 10 ^3/uL (0-1.3); Monocytes % (auto) 10.6 % (0.0-12.0); Neutrophils # (auto) 1.6 10 ^3/uL (1.6-8.6); Neutrophils % (auto) 42.8 % (37.0-80.0); Nucleated Red Blood Cells % 0.1 %; Red Cell Distribution Width 14.5 % (11.8-14.3); White Blood Cell 3.7 10^3/uL (4.4-10.8)
[2022-12-20 14:02] VITALS: PULSE 82
[2022-12-20 14:33] LABS: Alanine Aminotransferase 16 U/L (7-40); Albumin 4.6 g/dL (3.2-4.8); Alkaline Phosphatase 83 U/L (46-116); Anion Gap 5 (5-15); Aspartate Aminotransferase 15 U/L (13-40); BUN/Creatinine Ratio 9.8 (10.0-20.0); Bilirubin, Total 0.8 mg/dL (0.2-1.0); Blood Urea Nitrogen 14 mg/dL (9-23); Calcium 9.6 mg/dL (8.7-10.4); Carbon Dioxide 30 mmol/L (20-30); Chloride 105 mmol/L (98-107); Glucose 55 mg/dL (74-106); Magnesium 1.9 mg/dL (1.6-2.6); Potassium 4.4 mmol/L (3.5-5.1); Sodium 140 mmol/L (136-145); Total Protein 7.1 g/dL (5.7-8.2)
[2022-12-20] MEDS ORDERED: DEXTROSE (50%) 50ML SYRG IV ONE (15:00)
[2022-12-20] MEDS ORDERED: ALBUTEROL MEDNEB 2.5 mg/3ml NEB ONE (15:11)
[2022-12-20] MEDS ORDERED: IPRATROPIUM BROM 0.5 MG/2.5ML INH SOL ONE (15:11)
[2022-12-20] MEDS ORDERED: IPRATROPIUM BROM 0.5 MG/2.5ML INH SOL HHN ONE (15:15)
[2022-12-20] MEDS ORDERED: ALBUTEROL SULF 2.5 MG/0.5ML(0.5%) NEB SOLN HHN ONE (15:15)
[2022-12-20] MEDS ORDERED: predniSONE 20 MG TAB PO ONE (15:15)
[2022-12-20 15:18] VITALS: RESP 18; O2SAT 97
[2022-12-20] MEDS ORDERED: PRED20TA2 PO (16:35)
[2022-12-20] MEDS ORDERED: AZITTAB PO (16:35)
== END 2022-12-20 17:41 | disposition home or self-care (01) ==
LOC: ER 13:13
DX: J20.9 Acute bronchitis, unspecified (principal); I11.0 Hypertensive heart disease with heart failure; I50.9 Heart failure, unspecified; J44.9 Chronic obstructive pulmonary disease, unspecified; E78.5 Hyperlipidemia, unspecified; I25.2 Old myocardial infarction; F17.210 Nicotine dependence, cigarettes, uncomplicated; F12.10 Cannabis abuse, uncomplicated; F14.10 Cocaine abuse, uncomplicated; Z59.00 Homelessness unspecified
CPT/HCPCS: 36415; 36600; 71045; 80053; 82805; 83605; 83735; 83880; 84484; 85025; 87040; 93005; 94640; 99285; J7512; J7644

== ENCOUNTER 2023-01-07 13:51 | Inpatient (IN) | payer MEDICAID ==
[~2023-01-07] VITALS: Ht 170.2 cm; Wt 68.2 kg
[~2023-01-07 13:51] MED LIST changes: +AZITTAB PO; +PRED20TA2 PO
[2023-01-07 14:45] LABS: Basophils # (auto) 0 10 ^3/uL (0-0.2); Basophils % (auto) 0.4 % (0.0-2.0); Eosinophils # (auto) 0 10 ^3/uL (0-0.8); Eosinophils % (auto) 0.6 % (0.0-7.0); Hematocrit 49.7 % (41.0-53.0); Hemoglobin 16.2 g/dL (13.5-17.5); Lymphocytes # (auto) 1.2 10 ^3/uL (0.4-5.4); Lymphocytes % (auto) 26.6 % (10.0-50.0); Mean Corpuscular Hemoglobin 31.7 pg (28.0-32.0); Mean Corpuscular Hgb Conc. 32.7 g/dL (32.0-36.0); Mean Corpuscular Volume 96.9 fL (80.0-100.0); Monocytes # (auto) 0.6 10 ^3/uL (0-1.3); Neutrophils # (auto) 2.8 10 ^3/uL (1.6-8.6); Neutrophils % (auto) 60.4 % (37.0-80.0); Nucleated Red Blood Cells % 0.1 %; Red Blood Cells 5.13 10^6/uL (4.5-5.90); White Blood Cell 4.7 10^3/uL (4.4-10.8)
[2023-01-07 15:05] LABS: Alanine Aminotransferase 24 U/L (7-40); Albumin 4.1 g/dL (3.2-4.8); Alkaline Phosphatase 70 U/L (46-116); Anion Gap 6 (5-15); Aspartate Aminotransferase 30 U/L (13-40); BUN/Creatinine Ratio 10.5 (10.0-20.0); Blood Urea Nitrogen 16 mg/dL (9-23); Calcium 9.1 mg/dL (8.7-10.4); Carbon Dioxide 27 mmol/L (20-30); Chloride 109 mmol/L (98-107); Glucose 88 mg/dL (74-106); Potassium 4.1 mmol/L (3.5-5.1); Sodium 142 mmol/L (136-145)
[2023-01-07 15:06] LABS: Total Protein 6.4 g/dL (5.7-8.2)
[2023-01-07 15:09] LABS: Base Excess 1.2 mmol/L (-2.0-2.0)
[2023-01-07] MEDS ORDERED: IOHEXOL 350 MG/ML 100ML IJ ONE (18:22)
[2023-01-07] MEDS ORDERED: IPRATROPIUM BROM 0.5 MG/2.5ML INH SOL NEB ONE (20:45)
[2023-01-07] MEDS ORDERED: ALBUTEROL MEDNEB 2.5 mg/3ml NEB NEB ONE (20:45)
[2023-01-07] MEDS ORDERED: DOCUSATE SOD 100 MG CAP PO PRN (22:00)
[2023-01-07] MEDS ORDERED: HYDROcodone-ACET 5/325MG TAB PO PRN (22:00)
[2023-01-07] MEDS ORDERED: ACETAMINOPHEN 325 MG TAB PO PRN (22:00)
[2023-01-07] MEDS ORDERED: ONDANSETRON HCL 4 MG/2 ML VIAL IV PRN (22:00)
[2023-01-07] MEDS ORDERED: DexAMETHasone SOD PHOS 10MG/1ML VIAL INJ IV SCH (22:30)
[2023-01-07 22:59] VITALS: O2SAT 95
[2023-01-07 23:04] VITALS: BP 146/109; PULSE 101; TEMP 98.7; O2SAT 89
[2023-01-07] MEDS ORDERED: NITROGLYCERIN 0.4 MG SL TAB SL PRN (23:30)
[2023-01-07] MEDS ORDERED: MORPHINE SULFATE INJ 2 MG/ml SYRG IV PRN (23:30)
[2023-01-08] VITALS (9 sets, daily range): PULSE 80–99; RESP 14–20; O2SAT 89–99
[2023-01-08] MEDS: CARVEDILOL 3.125 MG TAB PO SCH ×3 (05:07→22:59)
[2023-01-08] MEDS: SODIUM CHLOR 0.9% PF (SALINE LOCK) 10ML VIAL/SYR IV SCH ×4 (05:08→23:00)
[2023-01-08] MEDS: FAMOTIDINE (10MG/ML) 2ML VL IV SCH ×3 (05:08→22:59)
[2023-01-08 05:50] LABS: Basophils # (auto) 0 10 ^3/uL (0-0.2); Basophils % (auto) 0.4 % (0.0-2.0); Eosinophils # (auto) 0 10 ^3/uL (0-0.8); Eosinophils % (auto) 0.7 % (0.0-7.0); Hematocrit 49.7 % (41.0-53.0); Hemoglobin 16.4 g/dL (13.5-17.5); Lymphocytes # (auto) 1.5 10 ^3/uL (0.4-5.4); Mean Corpuscular Hemoglobin 32.4 pg (28.0-32.0); Mean Corpuscular Volume 98.2 fL (80.0-100.0); Monocytes # (auto) 0.5 10 ^3/uL (0-1.3); Monocytes % (auto) 10.8 % (0.0-12.0); Neutrophils # (auto) 2.9 10 ^3/uL (1.6-8.6); Neutrophils % (auto) 58.1 % (37.0-80.0); Nucleated Red Blood Cells % 0.2 %; Red Blood Cells 5.06 10^6/uL (4.5-5.90); Red Cell Distribution Width 15.2 % (11.8-14.3); White Blood Cell 5.1 10^3/uL (4.4-10.8)
[2023-01-08] MEDS: hydrALAZINE HCL 20 MG/ML VL IV PRN ×3 (06:19→20:22)
[2023-01-08 06:32] LABS: Alanine Aminotransferase 27 U/L (7-40); Albumin 4.1 g/dL (3.2-4.8); Alkaline Phosphatase 75 U/L (46-116); Anion Gap 8 (5-15); Aspartate Aminotransferase 33 U/L (13-40); BUN/Creatinine Ratio 9.5 (10.0-20.0); Bilirubin, Total 0.8 mg/dL (0.2-1.0); Blood Urea Nitrogen 14 mg/dL (9-23); Calcium 8.9 mg/dL (8.7-10.4); Carbon Dioxide 24 mmol/L (20-30); Chloride 107 mmol/L (98-107); Glucose 120 mg/dL (74-106); Potassium 4.2 mmol/L (3.5-5.1); Sodium 139 mmol/L (136-145); Total Protein 6.3 g/dL (5.7-8.2)
[2023-01-08] MEDS: IPRATROPIUM BROM 0.5 MG/2.5ML INH SOL NEB PRN ×2 (09:05→13:26)
[2023-01-08] MEDS: ALBUTEROL MEDNEB 2.5 mg/3ml NEB NEB PRN ×2 (09:05→13:26)
[2023-01-08] MEDS: amLODIPine BESYLATE 5 MG TAB PO SCH (09:14)
[2023-01-08] MEDS ORDERED: FUROSEMIDE 40 MG/4 ML VIAL IV ONE (14:15)
[2023-01-08] MEDS ORDERED: NICOTINE 14 MG/24HR TOPICAL PATCH TD ONE (14:15)
[2023-01-08] MEDS ORDERED: AZITHROMYCIN 500MG/ 250ML 250 ML IV ONE (14:15)
[2023-01-08] MEDS: ALBUTEROL MEDNEB 2.5 mg/3ml NEB NEB SCH ×2 (18:44→22:00)
[2023-01-08] MEDS: IPRATROPIUM BROM 0.5 MG/2.5ML INH SOL NEB SCH ×2 (18:44→22:00)
[2023-01-08] MEDS ORDERED: LORazepam 2MG/ML-1ML VIAL IV ONE (20:15)
[2023-01-08] MEDS: methylPREDNISolone SOD SUCC 40 MG/ML VL IV SCH (22:59)
[2023-01-08 23:56] LABS: Urine Bacteria NONE SEEN /hpf (None Seen); Urine Blood Negative /uL (Negative); Urine Clarity Clear (Clear); Urine Color Colorless (Yellow); Urine Protein, UAD TRACE (Negative); Urine Specific Gravity 1.009 (1.001-1.035); Urine Urobilinogen Normal (Negative); Urine WBC <1 /hpf (0 - 3); Urine pH 6.5 (5.0-8.0)
[2023-01-09] VITALS (16 sets, daily range): BP systolic 116–132; BP diastolic 69–79; PULSE 74–110; RESP 16–20; TEMP 97.8–99; O2SAT 88–100
[2023-01-09 00:14] LABS: Amphetamine Screen, Urine Neg (NEGATIVE); Barbiturate Scree,Urine Neg (NEGATIVE); Benzodiazephine Screen, Urine Neg (NEGATIVE); Cannabinoid Screen, Urine Pos (NEGATIVE); Cocaine Screen, Urine Neg (NEGATIVE); Opiate Scree,Urine Neg (NEGATIVE); Phencyclidine Screen, Urine Neg (NEGATIVE)
[2023-01-09 01:22] LABS: COVID19 ANTIGEN SOFIA FIA NEGATIVE (NEGATIVE); Rapid Influenza A Negative (Negative); Rapid Influenza B Negative (Negative)
[2023-01-09] MEDS: SODIUM CHLOR 0.9% PF (SALINE LOCK) 10ML VIAL/SYR IV SCH ×3 (05:54→22:13)
[2023-01-09] MEDS: ALBUTEROL MEDNEB 2.5 mg/3ml NEB NEB SCH ×5 (06:14→22:40)
[2023-01-09] MEDS: IPRATROPIUM BROM 0.5 MG/2.5ML INH SOL NEB SCH ×5 (06:14→22:40)
[2023-01-09 07:07] LABS: Basophils # (auto) 0 10 ^3/uL (0-0.2); Basophils % (auto) 0.1 % (0.0-2.0); Eosinophils # (auto) 0 10 ^3/uL (0-0.8); Eosinophils % (auto) 0.5 % (0.0-7.0); Hematocrit 51.9 % (41.0-53.0); Hemoglobin 17.2 g/dL (13.5-17.5); Lymphocytes # (auto) 0.5 10 ^3/uL (0.4-5.4); Lymphocytes % (auto) 9.3 % (10.0-50.0); Mean Corpuscular Hemoglobin 32.6 pg (28.0-32.0); Mean Corpuscular Hgb Conc. 33.2 g/dL (32.0-36.0); Mean Corpuscular Volume 98.2 fL (80.0-100.0); Monocytes # (auto) 0.2 10 ^3/uL (0-1.3); Monocytes % (auto) 3.4 % (0.0-12.0); Neutrophils # (auto) 4.5 10 ^3/uL (1.6-8.6); Neutrophils % (auto) 86.7 % (37.0-80.0); Nucleated Red Blood Cells % 0.1 %; Red Blood Cells 5.28 10^6/uL (4.5-5.90); Red Cell Distribution Width 14.6 % (11.8-14.3); White Blood Cell 5.1 10^3/uL (4.4-10.8)
[2023-01-09 07:25] LABS: Alanine Aminotransferase 35 U/L (7-40); Albumin 4.3 g/dL (3.2-4.8); Alkaline Phosphatase 67 U/L (46-116); Anion Gap 7 (5-15); Aspartate Aminotransferase 34 U/L (13-40); BUN/Creatinine Ratio 12.6 (10.0-20.0); Bilirubin, Total 1.1 mg/dL (0.2-1.0); Blood Urea Nitrogen 18 mg/dL (9-23); CRP High Sensitivity 0.49 mg/dL (<1.0); Calcium 9.6 mg/dL (8.5-10.1); Carbon Dioxide 27 mmol/L (20-30); Chloride 103 mmol/L (98-107); Cholesterol 182 mg/dL (< 200); HDL Cholesterol 55 mg/dL (40-59); LDL Cholesterol 108 mg/dL (< 100); Phosphorus 4.5 mg/dL (2.4-5.1); Potassium 5.5 mmol/L (3.5-5.1); Sodium 137 mmol/L (136-145); Total Protein 6.6 g/dL (5.7-8.2); Triglycerides 80 mg/dL (< 150)
[2023-01-09 07:30] LABS: Glucose 225 mg/dL (74-106)
[2023-01-09 07:55] LABS: Lactic Acid w/Reflex 2.3 mmol/L (0.4-2.0)
[2023-01-09] MEDS ORDERED: CALCIUM GLUC 1,000mg/50ml-NS 50 ML IV ONE (09:00)
[2023-01-09 09:02] LABS: Magnesium 2.1 mg/dL (1.6-2.6)
[2023-01-09] MEDS: FUROSEMIDE 40 MG/4 ML VIAL IV SCH ×2 (09:41→11:52)
[2023-01-09] MEDS ORDERED: FUROSEMIDE 40 MG/4 ML VIAL IV SCH (10:00)
[2023-01-09] MEDS ORDERED: SODIUM ZIRCONIUM CYCL 10 GM PAK PO ONE ×2 (10:15→17:45)
[2023-01-09] MEDS: CARVEDILOL 3.125 MG TAB PO SCH (11:00)
[2023-01-09] MEDS: methylPREDNISolone SOD SUCC 40 MG/ML VL IV SCH ×2 (11:00→22:12)
[2023-01-09] MEDS: amLODIPine BESYLATE 5 MG TAB PO SCH (11:53)
[2023-01-09] MEDS: AZITHROMYCIN 500MG/ 250ML 250 ML IV SCH (12:17)
[2023-01-09] MEDS: NICOTINE 14 MG/24HR TOPICAL PATCH TD SCH (12:17)
[2023-01-09] MEDS ORDERED: NIFEdipine ER 30 MG TAB PO SCH (13:30)
[2023-01-09] MEDS ORDERED: ENOXAPARIN SOD 40 MG/0.4 ML SYRINGE SC ONE (18:45)
[2023-01-09] MEDS ORDERED: CHOLECALCIFEROL (VITD3) 1,000UNIT=25mCg TAB PO ONE (18:45)
[2023-01-09] MEDS ORDERED: PANTOPRAZOLE 40 MG/10 ML VIAL INJ IV ONE (18:45)
[2023-01-09 20:35] LABS: Chloride 102 mmol/L (98-107); Potassium 5.5 mmol/L (3.5-5.1); Sodium 135 mmol/L (136-145)
[2023-01-09 20:36] LABS: Anion Gap 6 (5-15); Carbon Dioxide 27 mmol/L (20-30)
[2023-01-09 20:37] LABS: Calcium 9.9 mg/dL (8.7-10.4)
[2023-01-09 20:41] LABS: BUN/Creatinine Ratio 11.3 (10.0-20.0); Blood Urea Nitrogen 18 mg/dL (9-23); Glucose 105 mg/dL (74-106)
[2023-01-09] MEDS ORDERED: hydrALAZINE HCL 25 MG TAB PO SCH (22:00)
[2023-01-09] MEDS: ATORVASTATIN 20 MG TAB PO SCH (22:12)
[2023-01-09] MEDS ORDERED: HYDROcodone-ACET 5/325MG TAB PO PRN (22:15)
[2023-01-10] VITALS (12 sets, daily range): BP systolic 133–178; BP diastolic 51–111; PULSE 76–116; RESP 17–20; TEMP 98.6–98.8; O2SAT 92–100
[2023-01-10 06:18] LABS: Basophils # (auto) 0 10 ^3/uL (0-0.2); Basophils % (auto) 0.1 % (0.0-2.0); Eosinophils # (auto) 0 10 ^3/uL (0-0.8); Hematocrit 48.9 % (41.0-53.0); Hemoglobin 16.2 g/dL (13.5-17.5); Lymphocytes # (auto) 0.5 10 ^3/uL (0.4-5.4); Mean Corpuscular Hemoglobin 32.2 pg (28.0-32.0); Mean Corpuscular Hgb Conc. 33.1 g/dL (32.0-36.0); Mean Corpuscular Volume 97.3 fL (80.0-100.0); Monocytes # (auto) 0.2 10 ^3/uL (0-1.3); Monocytes % (auto) 2.7 % (0.0-12.0); Neutrophils # (auto) 6.9 10 ^3/uL (1.6-8.6); Neutrophils % (auto) 90.2 % (37.0-80.0); Red Blood Cells 5.02 10^6/uL (4.5-5.90); Red Cell Distribution Width 14.5 % (11.8-14.3); White Blood Cell 7.7 10^3/uL (4.4-10.8)
[2023-01-10] MEDS: IPRATROPIUM BROM 0.5 MG/2.5ML INH SOL NEB SCH ×5 (06:18→22:07)
[2023-01-10] MEDS: ALBUTEROL MEDNEB 2.5 mg/3ml NEB NEB SCH ×5 (06:18→22:07)
[2023-01-10 06:25] LABS: INR 1.09 (0.9-1.15); Partial Thromboplastin Time 31.3 SEC (24.5-34.5); Prothrombin Time 11.4 sec (9.3-11.8)
[2023-01-10 06:42] LABS: Calcium 9.4 mg/dL (8.7-10.4); Chloride 101 mmol/L (98-107); Sodium 135 mmol/L (136-145)
[2023-01-10 06:43] LABS: Anion Gap 5 (5-15); Carbon Dioxide 29 mmol/L (20-30)
[2023-01-10 06:48] LABS: BUN/Creatinine Ratio 17.9 (10.0-20.0)
[2023-01-10 06:49] LABS: Blood Urea Nitrogen 30 mg/dL (9-23); Glucose 205 mg/dL (74-106); Lactic Acid w/Reflex 2.1 mmol/L (0.4-2.0); Magnesium 2.3 mg/dL (1.6-2.6)
[2023-01-10] MEDS: SODIUM CHLOR 0.9% PF (SALINE LOCK) 10ML VIAL/SYR IV SCH ×3 (08:53→22:16)
[2023-01-10] MEDS: EMPAGLIFLOZIN 10 MG TAB PO SCH (08:53)
[2023-01-10] MEDS ORDERED: amLODIPine BESYLATE 5 MG TAB PO SCH (10:00)
[2023-01-10] MEDS ORDERED: PANTOPRAZOLE 40 MG/10 ML VIAL INJ IV SCH (10:00)
[2023-01-10] MEDS: NICOTINE 14 MG/24HR TOPICAL PATCH TD SCH (10:00)
[2023-01-10] MEDS: methylPREDNISolone SOD SUCC 40 MG/ML VL IV SCH ×2 (10:07→22:15)
[2023-01-10] MEDS: AZITHROMYCIN 500MG/ 250ML 250 ML IV SCH (10:07)
[2023-01-10] MEDS: ENOXAPARIN SOD 40 MG/0.4 ML SYRINGE SC SCH (10:09)
[2023-01-10] MEDS: CHOLECALCIFEROL (VITD3) 1,000UNIT=25mCg TAB PO SCH (10:26)
[2023-01-10] MEDS: amLODIPine BESYLATE 5 MG TAB PO SCH (10:27)
[2023-01-10] MEDS: hydrALAZINE HCL 20 MG/ML VL IV PRN (11:51)
[2023-01-10] MEDS ORDERED: cloNIDine HCL 0.1 MG TAB PO ONE (12:45)
[2023-01-10 13:07] LABS: Free T3 2.39 pg/mL (2.3-4.2)
[2023-01-10 13:08] LABS: Free T4 (Free Thyroxine) 0.97 ng/dL (0.89-1.76)
[2023-01-10] MEDS: ATORVASTATIN 20 MG TAB PO SCH (22:15)
[2023-01-10] MEDS: cloNIDine HCL 0.1 MG TAB PO SCH (22:15)
[2023-01-11] VITALS (13 sets, daily range): BP systolic 143–157; BP diastolic 104–113; PULSE 76–100; RESP 16–20; TEMP 36.7; O2SAT 91–98
[2023-01-11] MEDS: SODIUM CHLOR 0.9% PF (SALINE LOCK) 10ML VIAL/SYR IV SCH ×2 (05:37→14:00)
[2023-01-11 06:09] LABS: Basophils # (auto) 0 10 ^3/uL (0-0.2); Basophils % (auto) 0.1 % (0.0-2.0); Eosinophils # (auto) 0 10 ^3/uL (0-0.8); Hematocrit 51.9 % (41.0-53.0); Hemoglobin 16.8 g/dL (13.5-17.5); Lymphocytes # (auto) 0.6 10 ^3/uL (0.4-5.4); Lymphocytes % (auto) 5.5 % (10.0-50.0); Mean Corpuscular Hemoglobin 31.7 pg (28.0-32.0); Mean Corpuscular Hgb Conc. 32.3 g/dL (32.0-36.0); Monocytes # (auto) 0.4 10 ^3/uL (0-1.3); Monocytes % (auto) 3.5 % (0.0-12.0); Neutrophils # (auto) 10.3 10 ^3/uL (1.6-8.6); Neutrophils % (auto) 90.9 % (37.0-80.0); Nucleated Red Blood Cells % 0.1 %; Red Cell Distribution Width 14.7 % (11.8-14.3); White Blood Cell 11.3 10^3/uL (4.4-10.8)
[2023-01-11 06:23] LABS: Chloride 102 mmol/L (98-107); Potassium 5.5 mmol/L (3.5-5.1); Sodium 134 mmol/L (136-145)
[2023-01-11 06:24] LABS: Anion Gap 4 (5-15); Calcium 9.6 mg/dL (8.7-10.4); Carbon Dioxide 28 mmol/L (20-30)
[2023-01-11 06:29] LABS: BUN/Creatinine Ratio 13.7 (10.0-20.0); Blood Urea Nitrogen 20 mg/dL (9-23); Glucose 138 mg/dL (74-106)
[2023-01-11 06:30] LABS: Magnesium 2.4 mg/dL (1.6-2.6)
[2023-01-11] MEDS: EMPAGLIFLOZIN 10 MG TAB PO SCH (06:36)
[2023-01-11] MEDS: IPRATROPIUM BROM 0.5 MG/2.5ML INH SOL NEB SCH ×3 (06:59→14:46)
[2023-01-11] MEDS: ALBUTEROL MEDNEB 2.5 mg/3ml NEB NEB SCH ×3 (06:59→14:46)
[2023-01-11] MEDS ORDERED: CALCIUM GLUC 1,000mg/50ml-NS 50 ML IV ONE (08:00)
[2023-01-11] MEDS ORDERED: SODIUM ZIRCONIUM CYCL 10 GM PAK PO ONE ×2 (08:00→10:45)
[2023-01-11] MEDS: methylPREDNISolone SOD SUCC 40 MG/ML VL IV SCH (09:58)
[2023-01-11] MEDS: CHOLECALCIFEROL (VITD3) 1,000UNIT=25mCg TAB PO SCH (09:59)
[2023-01-11] MEDS: NICOTINE 14 MG/24HR TOPICAL PATCH TD SCH (10:00)
[2023-01-11] MEDS: AZITHROMYCIN 500MG/ 250ML 250 ML IV SCH (10:00)
[2023-01-11] MEDS ORDERED: PANTOPRAZOLE 40 MG TAB PO SCH (10:00)
[2023-01-11] MEDS: amLODIPine BESYLATE 5 MG TAB PO SCH (10:00)
[2023-01-11] MEDS: cloNIDine HCL 0.1 MG TAB PO SCH (10:00)
[2023-01-11] MEDS: ENOXAPARIN SOD 40 MG/0.4 ML SYRINGE SC SCH (10:03)
[2023-01-11] MEDS ORDERED: SPIR25TA8 PO (10:49)
[2023-01-11] MEDS ORDERED: EMPA1TAB PO (10:49)
[2023-01-11] MEDS ORDERED: CLON0.1T PO (10:49)
[2023-01-11] MEDS ORDERED: PRED20TA2 PO (10:49)
[2023-01-11 11:13] LABS: Anion Gap 4 (5-15); Carbon Dioxide 29 mmol/L (20-30); Chloride 101 mmol/L (98-107); Potassium 5.2 mmol/L (3.5-5.1); Sodium 134 mmol/L (136-145)
[2023-01-11 11:14] LABS: Calcium 9.4 mg/dL (8.5-10.1)
[2023-01-11 11:20] LABS: BUN/Creatinine Ratio 16.3 (10.0-20.0); Blood Urea Nitrogen 23 mg/dL (9-23); Glucose 130 mg/dL (74-106)
[2023-01-11] MEDS ORDERED: BETHANECHOL CHLORIDE 25 MG TAB PO SCH (14:00)
[2023-01-11] MEDS ORDERED: TAMSULOSIN HYDROCHLORIDE 0.4 MG CAP PO SCH (18:00)
[2023-01-12 07:07] LABS: PSA Free 0.38 ng/mL
[2023-01-12 08:06] LABS: Prostate Specific Antigen 1.3 ng/mL (0.0-4.0)
== END 2023-01-11 16:30 | disposition home or self-care (01) | DRG 133 ==
LOC: ER 13:51 → TELE 23:29 → TELE-CENTR 01-09 08:41
PROVIDERS: ADMIT Internal Medicine Pulmonary Disease; ATTEND Student in an Organized Health Care Education/Training Program
DX: J96.21 Acute and chronic respiratory failure with hypoxia (principal); N17.0 Acute kidney failure with tubular necrosis; I50.23 Acute on chronic systolic (congestive) heart failure; I27.21 Secondary pulmonary arterial hypertension; I27.81 Cor pulmonale (chronic); D69.6 Thrombocytopenia, unspecified; I13.0 Hypertensive heart and chronic kidney disease with heart failure and stage 1 through stage 4 chronic kidney disease, or unspecified chronic kidney disease; Z59.00 Homelessness unspecified; Z20.822 Contact with and (suspected) exposure to COVID-19; E78.5 Hyperlipidemia, unspecified; E87.5 Hyperkalemia; I07.1 Rheumatic tricuspid insufficiency; J43.9 Emphysema, unspecified; J84.9 Interstitial pulmonary disease, unspecified; N18.32 Chronic kidney disease, stage 3b; E78.00 Pure hypercholesterolemia, unspecified; N40.1 Benign prostatic hyperplasia with lower urinary tract symptoms; R33.8 Other retention of urine; E55.9 Vitamin D deficiency, unspecified; I25.10 Atherosclerotic heart disease of native coronary artery without angina pectoris; Z82.5 Family history of asthma and other chronic lower respiratory diseases; Z79.899 Other long term (current) drug therapy; Z88.6 Allergy status to analgesic agent; Z88.8 Allergy status to other drugs, medicaments and biological substances; Z71.6 Tobacco abuse counseling; Z72.0 Tobacco use
CPT/HCPCS: 36415; 36600; 71046; 71275; 74176; 76775; 80048; 80053; 80061; 80307; 81001; 82306; 82805; 83036; 83605; 83735; 83880; 83970; 84100; 84154; 84439; 84443; 84481; 84484; 85025; 85610; 85730; 86141; 87040; 87077; 87081; 87186; 87426; 87804; 93005; 93306; 94640; C9113; G0378; J1100; J2405; J3490

== ENCOUNTER 2023-02-16 11:36 | Inpatient (IN) | payer MEDICAID ==
[~2023-02-16] VITALS: Ht 170.2 cm; Wt 63.6 kg
[~2023-02-16 11:36] MED LIST changes: -AZITTAB PO; +CLON0.1T PO; +EMPA1TAB PO; +SPIR25TA8 PO
[2023-02-16] MEDS ORDERED: ONDANSETRON HCL 4 MG/2 ML VIAL IV ONE (11:45)
[2023-02-16] MEDS ORDERED: ASPirin 81 mg TAB PO ONE (11:45)
[2023-02-16] MEDS ORDERED: MORPHINE SULFATE 4 MG/ML SYR/VIAL IV ONE (11:45)
[2023-02-16 12:28] LABS: Basophils # (auto) 0 10 ^3/uL (0-0.2); Basophils % (auto) 0.9 % (0.0-2.0); Eosinophils # (auto) 0 10 ^3/uL (0-0.8); Eosinophils % (auto) 0.3 % (0.0-7.0); Hematocrit 51.1 % (41.0-53.0); Hemoglobin 16.8 g/dL (13.5-17.5); Lymphocytes # (auto) 1.3 10 ^3/uL (0.4-5.4); Lymphocytes % (auto) 30.5 % (10.0-50.0); Mean Corpuscular Hemoglobin 31.4 pg (28.0-32.0); Mean Corpuscular Hgb Conc. 32.9 g/dL (32.0-36.0); Mean Corpuscular Volume 95.4 fL (80.0-100.0); Monocytes # (auto) 0.4 10 ^3/uL (0-1.3); Monocytes % (auto) 10.7 % (0.0-12.0); Neutrophils # (auto) 2.4 10 ^3/uL (1.6-8.6); Neutrophils % (auto) 57.6 % (37.0-80.0); Nucleated Red Blood Cells % 0.4 %; Red Blood Cells 5.35 10^6/uL (4.5-5.90); Red Cell Distribution Width 14.5 % (11.8-14.3); White Blood Cell 4.1 10^3/uL (4.4-10.8)
[2023-02-16 12:46] LABS: INR 1.18 (0.9-1.15); Partial Thromboplastin Time 29.9 SEC (24.5-34.5); Prothrombin Time 12.3 sec (9.3-11.8)
[2023-02-16 12:47] LABS: Alanine Aminotransferase 98 U/L (7-40); Albumin 3.9 g/dL (3.2-4.8); Alkaline Phosphatase 81 U/L (46-116); Anion Gap 8 (5-15); Aspartate Aminotransferase 76 U/L (13-40); BUN/Creatinine Ratio 14.2 (10.0-20.0); Blood Urea Nitrogen 16 mg/dL (9-23); Calcium 8.9 mg/dL (8.5-10.1); Carbon Dioxide 25 mmol/L (20-30); Chloride 107 mmol/L (98-107); Glucose 99 mg/dL (74-106); Potassium 4.1 mmol/L (3.5-5.1); Sodium 140 mmol/L (136-145)
[2023-02-16 12:48] LABS: Bilirubin, Total 1.3 mg/dL (0.2-1.0); Total Protein 5.9 g/dL (5.7-8.2)
[2023-02-16] MEDS ORDERED: FUROSEMIDE 40 MG/4 ML VIAL IV ONE (13:15)
[2023-02-16] MEDS ORDERED: methylPREDNISolone SOD SUCC 125 MG/2 ML VL IM ONE (15:15)
[2023-02-16 15:18] LABS: Magnesium 1.9 mg/dL (1.6-2.6)
[2023-02-16] MEDS ORDERED: ENOXAPARIN SOD 40 MG/0.4 ML SYRINGE SC SCH ×2 (15:45→17:15)
[2023-02-16 16:13] LABS: Base Excess -0.8 mmol/L (-2.0-2.0)
[2023-02-16] MEDS ORDERED: ALBUTEROL SULF 2.5 MG/0.5ML(0.5%) NEB SOLN ONE ×2 (17:24→21:34)
[2023-02-16] MEDS ORDERED: IPRATROPIUM BROM 0.5 MG/2.5ML INH SOL ONE ×2 (17:24→21:34)
[2023-02-16] MEDS ORDERED: hydrALAZINE HCL 20 MG/ML VL IV PRN (17:30)
[2023-02-16] MEDS ORDERED: FUROSEMIDE 20 MG/2 ML VIAL IV SCH ×2 (18:00→22:00)
[2023-02-16 19:22] VITALS: PULSE 97; RESP 22; O2SAT 72; O2SAT 91
[2023-02-16] MEDS: IPRATROPIUM BROM 0.5 MG/2.5ML INH SOL NEB SCH ×2 (19:24→22:57)
[2023-02-16] MEDS: ALBUTEROL SULF 2.5 MG/0.5ML(0.5%) NEB SOLN NEB SCH ×2 (19:25→22:57)
[2023-02-16 19:32] VITALS: PULSE 94; RESP 20; O2SAT 92
[2023-02-16 20:00] VITALS: PULSE 88; RESP 20; O2SAT 92
[2023-02-16] MEDS ORDERED: HYDROcodone-ACET 5/325MG TAB PO ONE (21:15)
[2023-02-16] MEDS ORDERED: methylPREDNISolone SOD SUCC 125 MG/2 ML VL ONE (21:15)
[2023-02-16] MEDS ORDERED: FUROSEMIDE 40 MG/4 ML VIAL ONE (21:15)
[2023-02-16] MEDS: cloNIDine HCL 0.1 MG TAB PO SCH (21:33)
[2023-02-16] MEDS: ENOXAPARIN SOD 60 MG/0.6 ML SYRINGE SC SCH (21:35)
[2023-02-16] MEDS: methylPREDNISolone SOD SUCC 125 MG/2 ML VL IV SCH (21:54)
[2023-02-16 21:55] VITALS: PULSE 88; RESP 20; O2SAT 84
[2023-02-16 22:05] VITALS: PULSE 91; RESP 22; O2SAT 95
[2023-02-16 22:47] VITALS: BP 192/105; PULSE 88; RESP 20; TEMP 98; O2SAT 84
[2023-02-16] MEDS: ATORVASTATIN 20 MG TAB PO SCH (23:19)
[2023-02-16] MEDS: MONTELUKAST SODIUM 10 MG TAB PO SCH (23:20)
[2023-02-17] VITALS (20 sets, daily range): BP systolic 121–159; BP diastolic 81–110; PULSE 71–115; RESP 16–20; TEMP 97.9–98.4; O2SAT 85–100
[2023-02-17 00:32] LABS: Rapid Influenza A Negative (Negative); Rapid Influenza B Negative (Negative)
[2023-02-17 00:33] LABS: COVID19 ANTIGEN SOFIA FIA NEGATIVE (NEGATIVE)
[2023-02-17] MEDS: IPRATROPIUM BROM 0.5 MG/2.5ML INH SOL NEB SCH ×6 (02:00→23:12)
[2023-02-17] MEDS: ALBUTEROL SULF 2.5 MG/0.5ML(0.5%) NEB SOLN NEB SCH ×6 (02:00→23:12)
[2023-02-17] MEDS ORDERED: ALBUTEROL SULF 2.5 MG/0.5ML(0.5%) NEB SOLN ONE ×2 (02:24→06:46)
[2023-02-17] MEDS ORDERED: IPRATROPIUM BROM 0.5 MG/2.5ML INH SOL ONE ×2 (02:24→06:46)
[2023-02-17] MEDS ORDERED: methylPREDNISolone SOD SUCC 125 MG/2 ML VL ONE (05:55)
[2023-02-17] MEDS ORDERED: ENOXAPARIN SOD 60 MG/0.6 ML SYRINGE SC ONE (05:59)
[2023-02-17] MEDS: ENOXAPARIN SOD 60 MG/0.6 ML SYRINGE SC SCH ×2 (06:00→17:08)
[2023-02-17 06:08] LABS: Basophils # (auto) 0 10 ^3/uL (0-0.2); Basophils % (auto) 0.1 % (0.0-2.0); Eosinophils # (auto) 0 10 ^3/uL (0-0.8); Hematocrit 50.5 % (41.0-53.0); Hemoglobin 16.5 g/dL (13.5-17.5); Lymphocytes # (auto) 0.4 10 ^3/uL (0.4-5.4); Lymphocytes % (auto) 11.4 % (10.0-50.0); Mean Corpuscular Hemoglobin 31.4 pg (28.0-32.0); Mean Corpuscular Hgb Conc. 32.7 g/dL (32.0-36.0); Mean Corpuscular Volume 96.2 fL (80.0-100.0); Monocytes # (auto) 0.1 10 ^3/uL (0-1.3); Monocytes % (auto) 1.8 % (0.0-12.0); Neutrophils # (auto) 3.3 10 ^3/uL (1.6-8.6); Neutrophils % (auto) 86.7 % (37.0-80.0); Nucleated Red Blood Cells % 0.1 %; Red Blood Cells 5.26 10^6/uL (4.5-5.90); Red Cell Distribution Width 14.4 % (11.8-14.3); White Blood Cell 3.9 10^3/uL (4.4-10.8)
[2023-02-17] MEDS: methylPREDNISolone SOD SUCC 125 MG/2 ML VL IV SCH (06:11)
[2023-02-17 06:21] LABS: Alanine Aminotransferase 103 U/L (7-40); Albumin 3.8 g/dL (3.2-4.8); Alkaline Phosphatase 78 U/L (46-116); Anion Gap 12 (5-15); Aspartate Aminotransferase 71 U/L (13-40); BUN/Creatinine Ratio 10.4 (10.0-20.0); Blood Urea Nitrogen 13 mg/dL (9-23); Calcium 8.7 mg/dL (8.5-10.1); Carbon Dioxide 22 mmol/L (20-30); Chloride 102 mmol/L (98-107); LDL Cholesterol 99 mg/dL (< 100); Potassium 3.8 mmol/L (3.5-5.1); Sodium 136 mmol/L (136-145); Triglycerides 81 mg/dL (< 150)
[2023-02-17 06:22] LABS: Bilirubin, Total 0.9 mg/dL (0.2-1.0); Cholesterol 142 mg/dL (< 200); HDL Cholesterol 37 mg/dL (40-59); Total Protein 6.1 g/dL (5.7-8.2)
[2023-02-17 06:38] LABS: Glucose 213 mg/dL (74-106)
[2023-02-17] MEDS ORDERED: PANTOPRAZOLE 40 MG TAB PO ONE (07:30)
[2023-02-17] MEDS: PANTOPRAZOLE 40 MG TAB PO SCH (07:35)
[2023-02-17] MEDS: NICOTINE 14 MG/24HR TOPICAL PATCH TD SCH (10:00)
[2023-02-17] MEDS ORDERED: amLODIPine BESYLATE 5 MG TAB ONE (10:15)
[2023-02-17] MEDS ORDERED: LISINOPRIL 5 MG TAB ONE (10:15)
[2023-02-17] MEDS ORDERED: SPIRONOLACTONE 25 MG TAB ONE (10:15)
[2023-02-17] MEDS ORDERED: cloNIDine HCL 0.1 MG TAB ONE (10:15)
[2023-02-17] MEDS: FUROSEMIDE 20 MG/2 ML VIAL IV SCH ×2 (10:20→17:08)
[2023-02-17] MEDS: SPIRONOLACTONE 25 MG TAB PO SCH (10:21)
[2023-02-17] MEDS: cloNIDine HCL 0.1 MG TAB PO SCH ×2 (10:22→21:05)
[2023-02-17] MEDS: LISINOPRIL 5 MG TAB PO SCH (10:23)
[2023-02-17] MEDS: amLODIPine BESYLATE 5 MG TAB PO SCH (10:23)
[2023-02-17] MEDS ORDERED: INFLUENZA QUAD 2023-2024 0.5 ML SYRG IM ONE (10:45)
[2023-02-17] MEDS: levoFLOXacin 500 MG TAB PO SCH (12:23)
[2023-02-17] MEDS: metroNIDAZOLE 500 MG TAB PO SCH ×2 (15:25→21:05)
[2023-02-17] MEDS: ATORVASTATIN 20 MG TAB PO SCH (21:04)
[2023-02-17] MEDS: MONTELUKAST SODIUM 10 MG TAB PO SCH (21:05)
[2023-02-17] MEDS: TEMAZEPAM 15 MG CAP PO PRN (22:12)
[2023-02-17] MEDS: BUDESONIDE (INHALATION) 0.5 MG/2 ML NEB NEB SCH (23:12)
[2023-02-18] VITALS (17 sets, daily range): BP systolic 116–151; BP diastolic 76–97; PULSE 89–107; RESP 16–20; TEMP 96–97.9; O2SAT 91–97
[2023-02-18] MEDS: ALBUTEROL SULF 2.5 MG/0.5ML(0.5%) NEB SOLN NEB SCH ×6 (02:30→22:19)
[2023-02-18] MEDS: IPRATROPIUM BROM 0.5 MG/2.5ML INH SOL NEB SCH ×6 (02:30→22:19)
[2023-02-18] MEDS: ENOXAPARIN SOD 60 MG/0.6 ML SYRINGE SC SCH (05:00)
[2023-02-18] MEDS: FUROSEMIDE 20 MG/2 ML VIAL IV SCH ×2 (06:34→17:59)
[2023-02-18] MEDS: metroNIDAZOLE 500 MG TAB PO SCH ×3 (06:34→22:06)
[2023-02-18] MEDS: EMPAGLIFLOZIN 10 MG TAB PO SCH (06:46)
[2023-02-18] MEDS: PANTOPRAZOLE 40 MG TAB PO SCH (06:46)
[2023-02-18] MEDS: BUDESONIDE (INHALATION) 0.5 MG/2 ML NEB NEB SCH ×2 (07:22→22:19)
[2023-02-18 07:40] LABS: Chloride 105 mmol/L (98-107); Potassium 4.5 mmol/L (3.5-5.1); Sodium 138 mmol/L (136-145)
[2023-02-18 07:41] LABS: Anion Gap 9 (5-15); Carbon Dioxide 24 mmol/L (20-30)
[2023-02-18 07:42] LABS: Basophils # (auto) 0 10 ^3/uL (0-0.2); Calcium 9.5 mg/dL (8.5-10.1); Eosinophils # (auto) 0 10 ^3/uL (0-0.8); Lymphocytes # (auto) 1.2 10 ^3/uL (0.4-5.4); Monocytes # (auto) 1.1 10 ^3/uL (0-1.3)
[2023-02-18 07:45] LABS: Basophils % (auto) 0.3 % (0.0-2.0); Hematocrit 53.7 % (41.0-53.0); Hemoglobin 17.4 g/dL (13.5-17.5); Lymphocytes % (auto) 10.9 % (10.0-50.0); Mean Corpuscular Hemoglobin 31.9 pg (28.0-32.0); Mean Corpuscular Hgb Conc. 32.4 g/dL (32.0-36.0); Mean Corpuscular Volume 98.5 fL (80.0-100.0); Neutrophils # (auto) 8.8 10 ^3/uL (1.6-8.6); Neutrophils % (auto) 78.8 % (37.0-80.0); Nucleated Red Blood Cells % 0.2 %; Red Blood Cells 5.45 10^6/uL (4.5-5.90); Red Cell Distribution Width 14.6 % (11.8-14.3); White Blood Cell 11.1 10^3/uL (4.4-10.8)
[2023-02-18 07:46] LABS: Glucose 98 mg/dL (74-106)
[2023-02-18] MEDS: methylPREDNISolone SOD SUCC 40 MG/ML VL IV SCH (08:59)
[2023-02-18] MEDS: cloNIDine HCL 0.1 MG TAB PO SCH ×2 (08:59→22:06)
[2023-02-18] MEDS: levoFLOXacin 500 MG TAB PO SCH (09:00)
[2023-02-18] MEDS: amLODIPine BESYLATE 5 MG TAB PO SCH (09:00)
[2023-02-18] MEDS: NICOTINE 14 MG/24HR TOPICAL PATCH TD SCH ×2 (09:01→09:09)
[2023-02-18] MEDS: LISINOPRIL 5 MG TAB PO SCH (09:01)
[2023-02-18 09:10] LABS: Platelet Estimate Adequate
[2023-02-18 09:12] LABS: RBC Morphology Normal
[2023-02-18 09:17] LABS: BUN/Creatinine Ratio 9.4 (10.0-20.0); Blood Urea Nitrogen 16 mg/dL (9-23)
[2023-02-18] MEDS: SPIRONOLACTONE 25 MG TAB PO SCH (10:19)
[2023-02-18] MEDS: ATORVASTATIN 20 MG TAB PO SCH (22:06)
[2023-02-18] MEDS: MONTELUKAST SODIUM 10 MG TAB PO SCH (22:06)
[2023-02-18] MEDS: TEMAZEPAM 15 MG CAP PO PRN (22:38)
[2023-02-19] VITALS (8 sets, daily range): BP systolic 106–116; BP diastolic 70–75; PULSE 75–98; RESP 16–21; TEMP 36.6; O2SAT 91–97
[2023-02-19] MEDS: IPRATROPIUM BROM 0.5 MG/2.5ML INH SOL NEB SCH ×3 (02:00→10:07)
[2023-02-19] MEDS: ALBUTEROL SULF 2.5 MG/0.5ML(0.5%) NEB SOLN NEB SCH ×3 (02:00→10:07)
[2023-02-19] MEDS: PANTOPRAZOLE 40 MG TAB PO SCH (06:22)
[2023-02-19] MEDS: metroNIDAZOLE 500 MG TAB PO SCH (06:22)
[2023-02-19] MEDS: EMPAGLIFLOZIN 10 MG TAB PO SCH (06:22)
[2023-02-19] MEDS: FUROSEMIDE 20 MG/2 ML VIAL IV SCH (06:25)
[2023-02-19] MEDS: BUDESONIDE (INHALATION) 0.5 MG/2 ML NEB NEB SCH (07:45)
[2023-02-19] MEDS: methylPREDNISolone SOD SUCC 40 MG/ML VL IV SCH (09:18)
[2023-02-19] MEDS: amLODIPine BESYLATE 5 MG TAB PO SCH (09:19)
[2023-02-19] MEDS: levoFLOXacin 500 MG TAB PO SCH (09:19)
[2023-02-19] MEDS: cloNIDine HCL 0.1 MG TAB PO SCH (09:19)
[2023-02-19] MEDS: NICOTINE 14 MG/24HR TOPICAL PATCH TD SCH (10:00)
[2023-02-19] MEDS ORDERED: ENOXAPARIN SOD 40 MG/0.4 ML SYRINGE SC SCH (10:00)
[2023-02-20 09:33] LABS: Hepatitis B Surface Antigen Negative (Negative)
[2023-02-20 09:54] LABS: Hepatitis C Antibody Negative (Negative)
== END 2023-02-19 12:40 | disposition home or self-care (01) | DRG 133 ==
LOC: ER 11:36 → TELE 15:48 → TELE-WESTW 02-17 09:36
PROVIDERS: ADMIT Nurse Practitioner Family; ATTEND Nurse Practitioner Acute Care
DX: J96.21 Acute and chronic respiratory failure with hypoxia (principal); N17.0 Acute kidney failure with tubular necrosis; I50.23 Acute on chronic systolic (congestive) heart failure; I13.0 Hypertensive heart and chronic kidney disease with heart failure and stage 1 through stage 4 chronic kidney disease, or unspecified chronic kidney disease; I27.21 Secondary pulmonary arterial hypertension; I50.84 End stage heart failure; J43.9 Emphysema, unspecified; I16.1 Hypertensive emergency; I25.10 Atherosclerotic heart disease of native coronary artery without angina pectoris; N40.1 Benign prostatic hyperplasia with lower urinary tract symptoms; Z23 Encounter for immunization; N18.31 Chronic kidney disease, stage 3a; E55.9 Vitamin D deficiency, unspecified; E78.5 Hyperlipidemia, unspecified; F17.210 Nicotine dependence, cigarettes, uncomplicated; I07.1 Rheumatic tricuspid insufficiency; R91.1 Solitary pulmonary nodule; Z20.822 Contact with and (suspected) exposure to COVID-19; R33.8 Other retention of urine; Z59.00 Homelessness unspecified; Z79.899 Other long term (current) drug therapy; Z82.5 Family history of asthma and other chronic lower respiratory diseases; I25.2 Old myocardial infarction; Z88.6 Allergy status to analgesic agent; Z88.8 Allergy status to other drugs, medicaments and biological substances; Z71.6 Tobacco abuse counseling; Z91.148 Patient's other noncompliance with medication regimen for other reason
CPT/HCPCS: 36415; 36600; 71045; 71260; 74177; 80048; 80053; 80061; 82805; 82962; 83735; 83880; 84484; 85025; 85379; 85610; 85730; 86803; 87081; 87340; 87426; 87804; 93005; 93970; 94640; G0378

== ENCOUNTER 2023-02-22 12:13 | Inpatient (IN) | payer MEDICAID, OTHER ==
[~2023-02-22] VITALS: Ht 170.2 cm; Wt 70.0 kg
[2023-02-22 14:38] LABS: Hematocrit 52.2 % (41.0-53.0); Mean Corpuscular Hemoglobin 31.3 pg (28.0-32.0); Mean Corpuscular Hgb Conc. 32.6 g/dL (32.0-36.0); Mean Corpuscular Volume 96.1 fL (80.0-100.0); Red Blood Cells 5.43 10^6/uL (4.5-5.90); Red Cell Distribution Width 14.9 % (11.8-14.3); White Blood Cell 6.1 10^3/uL (4.4-10.8)
[2023-02-22 14:44] LABS: Basophils % (manual) 0 (0.0-2.0); Eosinophils % (manual) 0 (0-7); Metamyelocytes % 0; Myelocytes % 0; Promyelocytes % 0; Reactive Lymphocytes 0
[2023-02-22 14:45] LABS: Blast Cells 0
[2023-02-22 14:55] LABS: INR 1.15 (0.9-1.15); Partial Thromboplastin Time 31.9 SEC (24.5-34.5)
[2023-02-22] MEDS ORDERED: DexAMETHasone SOD PHOS 10MG/1ML VIAL INJ IV ONE (15:00)
[2023-02-22] MEDS ORDERED: ALBUTEROL SULF 2.5 MG/0.5ML(0.5%) NEB SOLN NEB ONE (15:00)
[2023-02-22] MEDS ORDERED: AZITHROMYCIN 500MG/ 250ML 250 ML IV ONE (15:00)
[2023-02-22] MEDS ORDERED: IPRATROPIUM BROM 0.5 MG/2.5ML INH SOL NEB ONE (15:00)
[2023-02-22 15:05] LABS: Alanine Aminotransferase 63 U/L (7-40); Alkaline Phosphatase 69 U/L (46-116); Anion Gap 3 (5-15); BUN/Creatinine Ratio 10.6 (10.0-20.0); Blood Urea Nitrogen 14 mg/dL (9-23); Calcium 8.8 mg/dL (8.7-10.4); Carbon Dioxide 27 mmol/L (20-30); Chloride 104 mmol/L (98-107); Glucose 89 mg/dL (74-106); Potassium 5.2 mmol/L (3.5-5.1); Sodium 134 mmol/L (136-145)
[2023-02-22 15:06] LABS: Albumin 3.8 g/dL (3.2-4.8); Aspartate Aminotransferase 52 U/L (13-40); Bilirubin, Total 1.1 mg/dL (0.2-1.0); Total Protein 5.9 g/dL (5.7-8.2)
[2023-02-22 15:38] VITALS: PULSE 113; RESP 20; O2SAT 88
[2023-02-22] MEDS ORDERED: HYDROcodone-ACET 5/325MG TAB PO ONE (15:45)
[2023-02-22 15:59] LABS: Band Neutrophils % (manual) 3; Lymphocytes % (manual) 14 (10.0-50.0); Monocytes % (manual) 12 (0-12)
[2023-02-22 16:00] LABS: Platelet Estimate Adequate
[2023-02-22] MEDS ORDERED: FUROSEMIDE 40 MG/4 ML VIAL IV ONE (16:15)
[2023-02-22] MEDS ORDERED: ONDANSETRON HCL 4 MG/2 ML VIAL IV PRN (19:30)
[2023-02-22] MEDS ORDERED: MORPHINE SULFATE INJ 2 MG/ml SYRG IV PRN (19:30)
[2023-02-22] MEDS ORDERED: DOCUSATE SOD 100 MG CAP PO PRN (19:30)
[2023-02-22] MEDS ORDERED: NITROGLYCERIN 0.4 MG SL TAB SL PRN (19:30)
[2023-02-22] MEDS ORDERED: ACETAMINOPHEN 325 MG TAB PO PRN (19:30)
[2023-02-22 21:00] VITALS: PULSE 89; RESP 20; O2SAT 93
[2023-02-22 21:16] LABS: Rapid Influenza B Negative (Negative)
[2023-02-22 21:19] LABS: Rapid Influenza A Positive (Negative)
[2023-02-22 21:20] LABS: COVID19 ANTIGEN SOFIA FIA NEGATIVE (NEGATIVE)
[2023-02-22] MEDS: cloNIDine HCL 0.1 MG TAB PO SCH (22:00)
[2023-02-22 22:06] VITALS: BP 97/76; PULSE 94; RESP 18; TEMP 99.1; O2SAT 96
[2023-02-22] MEDS: ALBUTEROL SULF 2.5 MG/0.5ML(0.5%) NEB SOLN NEB SCH (22:06)
[2023-02-22] MEDS: IPRATROPIUM BROM 0.5 MG/2.5ML INH SOL NEB SCH (22:06)
[2023-02-22 22:16] VITALS: PULSE 91; RESP 18; O2SAT 97
[2023-02-22] MEDS: MONTELUKAST SODIUM 10 MG TAB PO SCH (22:35)
[2023-02-22] MEDS: methylPREDNISolone SOD SUCC 40 MG/ML VL IV SCH (22:36)
[2023-02-23] VITALS (11 sets, daily range): PULSE 98–115; RESP 18–26; O2SAT 92–99
[2023-02-23 04:53] LABS: Basophils # (auto) 0 10 ^3/uL (0-0.2); Basophils % (auto) 0.4 % (0.0-2.0); Eosinophils # (auto) 0 10 ^3/uL (0-0.8); Eosinophils % (auto) 0.9 % (0.0-7.0); Hematocrit 48.5 % (41.0-53.0); Hemoglobin 15.8 g/dL (13.5-17.5); Lymphocytes # (auto) 0.6 10 ^3/uL (0.4-5.4); Lymphocytes % (auto) 11.7 % (10.0-50.0); Mean Corpuscular Hemoglobin 31.8 pg (28.0-32.0); Mean Corpuscular Hgb Conc. 32.6 g/dL (32.0-36.0); Mean Corpuscular Volume 97.5 fL (80.0-100.0); Monocytes # (auto) 0.4 10 ^3/uL (0-1.3); Monocytes % (auto) 9.1 % (0.0-12.0); Neutrophils # (auto) 3.8 10 ^3/uL (1.6-8.6); Neutrophils % (auto) 77.9 % (37.0-80.0); Nucleated Red Blood Cells % 0.3 %; Red Blood Cells 4.97 10^6/uL (4.5-5.90); Red Cell Distribution Width 14.7 % (11.8-14.3); White Blood Cell 4.9 10^3/uL (4.4-10.8)
[2023-02-23 05:14] LABS: Alanine Aminotransferase 49 U/L (7-40); Albumin 3.5 g/dL (3.2-4.8); Alkaline Phosphatase 60 U/L (46-116); Anion Gap 5 (5-15); Aspartate Aminotransferase 38 U/L (13-40); BUN/Creatinine Ratio 9.7 (10.0-20.0); Blood Urea Nitrogen 16 mg/dL (9-23); Calcium 8.2 mg/dL (8.7-10.4); Carbon Dioxide 27 mmol/L (20-30); Chloride 100 mmol/L (98-107); Sodium 132 mmol/L (136-145)
[2023-02-23 05:15] LABS: Bilirubin, Total 0.8 mg/dL (0.2-1.0); Total Protein 5.8 g/dL (5.7-8.2)
[2023-02-23 05:23] LABS: Glucose 222 mg/dL (74-106)
[2023-02-23] MEDS ORDERED: InsuLIN REG 1unit/0.01ml Soln (100units/ml) IV ONE (05:30)
[2023-02-23] MEDS ORDERED: DEXTROSE (50%) 50ML SYRG IV ONE (05:30)
[2023-02-23] MEDS ORDERED: CALCIUM GLUC 1,000mg/50ml-NS 50 ML IV ONE (05:30)
[2023-02-23] MEDS ORDERED: SODIUM ZIRCONIUM CYCL 10 GM PAK PO ONE (05:30)
[2023-02-23] MEDS: FUROSEMIDE 40 MG/4 ML VIAL IV SCH ×2 (05:55→18:16)
[2023-02-23 06:31] LABS: Urine WBC None Seen /hpf (0 - 3)
[2023-02-23] MEDS: IPRATROPIUM BROM 0.5 MG/2.5ML INH SOL NEB SCH ×5 (06:38→22:29)
[2023-02-23] MEDS: ALBUTEROL SULF 2.5 MG/0.5ML(0.5%) NEB SOLN NEB SCH ×5 (06:38→22:29)
[2023-02-23 07:27] LABS: Urine Bacteria NONE SEEN /hpf (None Seen); Urine Blood Negative /uL (Negative); Urine Clarity Clear (Clear); Urine Color Yellow (Yellow); Urine Hyaline Cast FEW /lpf (0 - 2); Urine Protein, UAD 1+ (Negative); Urine Urobilinogen Normal (Negative); Urine pH 5.5 (5.0-8.0)
[2023-02-23] MEDS: PANTOPRAZOLE 40 MG TAB PO SCH (07:28)
[2023-02-23] MEDS: EMPAGLIFLOZIN 10 MG TAB PO SCH (07:28)
[2023-02-23 07:38] LABS: Amphetamine Screen, Urine Neg (NEGATIVE)
[2023-02-23 07:41] LABS: Barbiturate Scree,Urine Neg (NEGATIVE); Benzodiazephine Screen, Urine Neg (NEGATIVE); Cannabinoid Screen, Urine Pos (NEGATIVE); Cocaine Screen, Urine Neg (NEGATIVE); Opiate Scree,Urine Neg (NEGATIVE); Phencyclidine Screen, Urine Neg (NEGATIVE)
[2023-02-23 09:49] LABS: Hepatitis A Ab IgM Negative
[2023-02-23 09:50] LABS: Hepatitis B Core IgM Negative
[2023-02-23 09:58] LABS: Hepatitis B Surface Antigen Negative (Negative)
[2023-02-23] MEDS: NICOTINE 21MG/24 HR TOPICAL PATCH TD SCH (10:00)
[2023-02-23] MEDS: methylPREDNISolone SOD SUCC 40 MG/ML VL IV SCH ×2 (10:17→22:51)
[2023-02-23] MEDS: cloNIDine HCL 0.1 MG TAB PO SCH ×2 (10:17→22:51)
[2023-02-23] MEDS: amLODIPine BESYLATE 5 MG TAB PO SCH (10:17)
[2023-02-23] MEDS: LISINOPRIL 5 MG TAB PO SCH (10:18)
[2023-02-23 10:19] LABS: Hepatitis C Antibody Negative (Negative)
[2023-02-23] MEDS ORDERED: BUDE1AER4 INH (15:53)
[2023-02-23] MEDS ORDERED: ALBUAER3 INH (15:57)
[2023-02-23] MEDS ORDERED: dilTIAZem 25 MG/5 ML VIAL IV ONE (21:15)
[2023-02-23] MEDS ORDERED: TEMAZEPAM 15 MG CAP PO ONE (21:15)
[2023-02-23] MEDS: MONTELUKAST SODIUM 10 MG TAB PO SCH (22:51)
[2023-02-24] VITALS (19 sets, daily range): BP systolic 104–138; BP diastolic 58–102; PULSE 85–110; RESP 17–22; TEMP 98.2–99; O2SAT 2–100
[2023-02-24] MEDS: EMPAGLIFLOZIN 10 MG TAB PO SCH (06:31)
[2023-02-24] MEDS: PANTOPRAZOLE 40 MG TAB PO SCH (06:31)
[2023-02-24] MEDS: FUROSEMIDE 40 MG/4 ML VIAL IV SCH ×2 (06:33→17:12)
[2023-02-24] MEDS: IPRATROPIUM BROM 0.5 MG/2.5ML INH SOL NEB SCH ×5 (06:41→21:34)
[2023-02-24] MEDS: ALBUTEROL SULF 2.5 MG/0.5ML(0.5%) NEB SOLN NEB SCH ×5 (06:41→21:34)
[2023-02-24] MEDS: LISINOPRIL 5 MG TAB PO SCH (09:03)
[2023-02-24] MEDS: amLODIPine BESYLATE 5 MG TAB PO SCH (09:04)
[2023-02-24] MEDS: cloNIDine HCL 0.1 MG TAB PO SCH ×2 (09:04→22:14)
[2023-02-24] MEDS: methylPREDNISolone SOD SUCC 40 MG/ML VL IV SCH ×3 (09:04→22:09)
[2023-02-24] MEDS: NICOTINE 21MG/24 HR TOPICAL PATCH TD SCH (10:00)
[2023-02-24] MEDS: MONTELUKAST SODIUM 10 MG TAB PO SCH (22:14)
[2023-02-24] MEDS: OSELTAMIVIR 75 MG CAP PO SCH (22:14)
[2023-02-24] MEDS ORDERED: TEMAZEPAM 15 MG CAP PO ONE (22:45)
[2023-02-24] MEDS ORDERED: HYDROcodone-ACET 5/325MG TAB PO PRN (22:45)
[2023-02-25] VITALS (19 sets, daily range): BP systolic 118–131; BP diastolic 77–95; PULSE 59–112; RESP 18–22; TEMP 97.6–98.3; O2SAT 83–100
[2023-02-25] MEDS: ALBUTEROL SULF 2.5 MG/0.5ML(0.5%) NEB SOLN NEB SCH ×5 (06:01→22:27)
[2023-02-25] MEDS: IPRATROPIUM BROM 0.5 MG/2.5ML INH SOL NEB SCH ×5 (06:02→22:27)
[2023-02-25] MEDS: PANTOPRAZOLE 40 MG TAB PO SCH (06:35)
[2023-02-25] MEDS: methylPREDNISolone SOD SUCC 40 MG/ML VL IV SCH ×3 (06:35→22:11)
[2023-02-25] MEDS: FUROSEMIDE 40 MG/4 ML VIAL IV SCH ×2 (06:35→17:48)
[2023-02-25] MEDS: EMPAGLIFLOZIN 10 MG TAB PO SCH (06:36)
[2023-02-25 08:52] LABS: Chloride 92 mmol/L (98-107); Potassium 5.5 mmol/L (3.5-5.1); Sodium 131 mmol/L (136-145)
[2023-02-25 08:53] LABS: Anion Gap 9 (5-15); Calcium 9.7 mg/dL (8.5-10.1); Carbon Dioxide 30 mmol/L (20-30)
[2023-02-25 08:58] LABS: BUN/Creatinine Ratio 15.8 (10.0-20.0); Blood Urea Nitrogen 26 mg/dL (9-23); Glucose 133 mg/dL (74-106)
[2023-02-25] MEDS: LISINOPRIL 5 MG TAB PO SCH (09:45)
[2023-02-25] MEDS: amLODIPine BESYLATE 5 MG TAB PO SCH (09:45)
[2023-02-25] MEDS: NICOTINE 21MG/24 HR TOPICAL PATCH TD SCH (09:46)
[2023-02-25] MEDS: OSELTAMIVIR 75 MG CAP PO SCH ×2 (09:46→22:12)
[2023-02-25] MEDS: cloNIDine HCL 0.1 MG TAB PO SCH ×2 (09:46→22:12)
[2023-02-25 18:16] LABS: Base Excess 7.8 mmol/L (-2.0-2.0)
[2023-02-25] MEDS: MONTELUKAST SODIUM 10 MG TAB PO SCH (22:12)
[2023-02-25] MEDS: MELATONIN 5 MG TAB PO SCH (23:58)
[2023-02-26] VITALS (11 sets, daily range): BP systolic 125–136; BP diastolic 85–89; PULSE 84–97; RESP 14–21; TEMP 97.9–98.2; O2SAT 91–100
[2023-02-26] MEDS ORDERED: MELATONIN 5 MG TAB PO ONE (00:15)
[2023-02-26] MEDS: MELATONIN 5 MG TAB PO SCH (00:25)
[2023-02-26] MEDS ORDERED: MELATONIN 5 MG TAB PO SCH (00:30)
[2023-02-26] MEDS: IPRATROPIUM BROM 0.5 MG/2.5ML INH SOL NEB SCH ×3 (06:03→14:00)
[2023-02-26] MEDS: ALBUTEROL SULF 2.5 MG/0.5ML(0.5%) NEB SOLN NEB SCH ×3 (06:03→14:00)
[2023-02-26] MEDS: methylPREDNISolone SOD SUCC 40 MG/ML VL IV SCH ×2 (06:25→12:56)
[2023-02-26] MEDS: PANTOPRAZOLE 40 MG TAB PO SCH (06:26)
[2023-02-26] MEDS: FUROSEMIDE 40 MG/4 ML VIAL IV SCH (06:26)
[2023-02-26] MEDS: EMPAGLIFLOZIN 10 MG TAB PO SCH (06:27)
[2023-02-26] MEDS: NICOTINE 21MG/24 HR TOPICAL PATCH TD SCH (09:57)
[2023-02-26] MEDS: cloNIDine HCL 0.1 MG TAB PO SCH (09:58)
[2023-02-26] MEDS: amLODIPine BESYLATE 5 MG TAB PO SCH (09:59)
[2023-02-26] MEDS: OSELTAMIVIR 75 MG CAP PO SCH (09:59)
[2023-02-26] MEDS: LISINOPRIL 5 MG TAB PO SCH (09:59)
[2023-02-26] MEDS ORDERED: LISI-275 PO (15:20)
[2023-02-26] MEDS ORDERED: AML5T PO (15:20)
[2023-02-26] MEDS ORDERED: EMPA1TAB PO (15:20)
[2023-02-26] MEDS ORDERED: IPRAAER6 IN (15:30)
[2023-02-27 10:37] LABS: Hepatitis B Surface Antigen Negative (Negative)
[2023-02-27 10:59] LABS: Hepatitis C Antibody Negative (Negative)
== END 2023-02-26 15:53 | disposition home or self-care (01) | DRG 140 ==
LOC: EDUNIT# 12:13 → ER 12:13 → EDBD 12:13 → TELE 19:34 → TELE-CENTR 02-23 23:15
PROVIDERS: ADMIT Nurse Practitioner Family; ATTEND Internal Medicine
DX: J44.1 Chronic obstructive pulmonary disease with (acute) exacerbation (principal); J96.21 Acute and chronic respiratory failure with hypoxia; I50.43 Acute on chronic combined systolic (congestive) and diastolic (congestive) heart failure; I27.20 Pulmonary hypertension, unspecified; I11.0 Hypertensive heart disease with heart failure; J44.0 Chronic obstructive pulmonary disease with (acute) lower respiratory infection; I25.10 Atherosclerotic heart disease of native coronary artery without angina pectoris; Z20.822 Contact with and (suspected) exposure to COVID-19; F12.90 Cannabis use, unspecified, uncomplicated; E78.5 Hyperlipidemia, unspecified; F17.210 Nicotine dependence, cigarettes, uncomplicated; N40.0 Benign prostatic hyperplasia without lower urinary tract symptoms; Z82.5 Family history of asthma and other chronic lower respiratory diseases; Z88.6 Allergy status to analgesic agent; Z91.199 Patient's noncompliance with other medical treatment and regimen due to unspecified reason
CPT/HCPCS: 36415; 36600; 71045; 80048; 80053; 80074; 80307; 81001; 82805; 82962; 83605; 83690; 83880; 84484; 85007; 85025; 85027; 85610; 85730; 86701; 86703; 86803; 87081; 87340; 87426; 87804; 93005; 94640; 96365; 96375; G0378; J1100; J1815

== ENCOUNTER 2023-04-15 12:42 | Inpatient (IN) | payer MEDICAID ==
[~2023-04-15] VITALS: Ht 167.6 cm; Wt 56.3 kg
[~2023-04-15 12:42] MED LIST changes: -ALBUAER3 IN; +ALBUAER3 INH; -BUDE1AER4 IN; +BUDE1AER4 INH; +IPRAAER6 IN; -PRED20TA2 PO
[2023-04-15] MEDS: methylPREDNISolone SOD SUCC 125 MG/2 ML VL IV ONE (14:05)
[2023-04-15] MEDS: cloNIDine HCL 0.1 MG TAB PO ONE (14:10)
[2023-04-15 14:25] LABS: Basophils # (auto) 0 10 ^3/uL (0-0.2); Basophils % (auto) 0.7 % (0.0-2.0); Eosinophils # (auto) 0 10 ^3/uL (0-0.8); Eosinophils % (auto) 0.7 % (0.0-7.0); Hematocrit 47.6 % (41.0-53.0); Hemoglobin 15.4 g/dL (13.5-17.5); Lymphocytes # (auto) 1.5 10 ^3/uL (0.4-5.4); Lymphocytes % (auto) 32.3 % (10.0-50.0); Mean Corpuscular Hemoglobin 31.6 pg (28.0-32.0); Mean Corpuscular Hgb Conc. 32.3 g/dL (32.0-36.0); Mean Corpuscular Volume 97.7 fL (80.0-100.0); Monocytes # (auto) 0.5 10 ^3/uL (0-1.3); Monocytes % (auto) 11.6 % (0.0-12.0); Neutrophils # (auto) 2.6 10 ^3/uL (1.6-8.6); Neutrophils % (auto) 54.7 % (37.0-80.0); Nucleated Red Blood Cells % 0.1 %; Red Blood Cells 4.87 10^6/uL (4.5-5.90); Red Cell Distribution Width 14.9 % (11.8-14.3); White Blood Cell 4.7 10^3/uL (4.4-10.8)
[2023-04-15 14:44] LABS: Alanine Aminotransferase 21 U/L (7-40); Albumin 3.8 g/dL (3.2-4.8); Alkaline Phosphatase 70 U/L (46-116); Anion Gap 8 (5-15); Aspartate Aminotransferase 33 U/L (13-40); BUN/Creatinine Ratio 12.5 (10.0-20.0); Blood Urea Nitrogen 15 mg/dL (9-23); Calcium 8.8 mg/dL (8.7-10.4); Carbon Dioxide 27 mmol/L (20-30); Chloride 105 mmol/L (98-107); Glucose 92 mg/dL (74-106); Potassium 4.5 mmol/L (3.5-5.1); Sodium 140 mmol/L (136-145)
[2023-04-15 14:45] LABS: Bilirubin, Total 1.1 mg/dL (0.2-1.0); Total Protein 6.9 g/dL (5.7-8.2)
[2023-04-15] MEDS ORDERED: TEMAZEPAM 15 MG CAP PO PRN (17:15)
[2023-04-15] MEDS ORDERED: hydrALAZINE HCL 20 MG/ML VL IV PRN (17:15)
[2023-04-15] MEDS ORDERED: DOCUSATE SOD 100 MG CAP PO PRN (17:15)
[2023-04-15] MEDS ORDERED: ONDANSETRON HCL 4 MG/2 ML VIAL IV PRN (17:15)
[2023-04-15] MEDS ORDERED: MORPHINE SULFATE INJ 2 MG/ml SYRG IV PRN (17:15)
[2023-04-15 17:21] VITALS: BP 181/122; PULSE 99; RESP 18; TEMP 98.3; O2SAT 95
[2023-04-15] MEDS: FUROSEMIDE 40 MG/4 ML VIAL IV SCH (18:00)
[2023-04-15] MEDS: IPRATROPIUM BROM 0.5 MG/2.5ML INH SOL NEB SCH (18:26)
[2023-04-15] MEDS: ALBUTEROL SULF 2.5 MG/0.5ML(0.5%) NEB SOLN NEB SCH (18:26)
[2023-04-15 18:27] VITALS: O2SAT 97; O2SAT 98
[2023-04-15 18:28] VITALS: PULSE 94; RESP 16; O2SAT 97
[2023-04-15 18:31] VITALS: PULSE 89; RESP 16; O2SAT 100
[2023-04-15] MEDS: ENOXAPARIN SOD 40 MG/0.4 ML SYRINGE SC SCH (20:57)
[2023-04-15] MEDS: FUROSEMIDE 40 MG/4 ML VIAL IV ONE (20:57)
[2023-04-15] MEDS: HYDROcodone-ACET 5/325MG TAB PO PRN (21:31)
[2023-04-15] MEDS: MONTELUKAST SODIUM 10 MG TAB PO SCH (22:29)
[2023-04-15] MEDS: cloNIDine HCL 0.1 MG TAB PO SCH (22:29)
[2023-04-15] MEDS: methylPREDNISolone SOD SUCC 125 MG/2 ML VL IV SCH (22:32)
[2023-04-15 23:10] VITALS: PULSE 87; RESP 16; O2SAT 93
[2023-04-15 23:20] VITALS: PULSE 88; RESP 16; O2SAT 100
[2023-04-15 23:54] LABS: COVID19 ANTIGEN SOFIA FIA NEGATIVE (NEGATIVE)
[2023-04-15 23:55] LABS: Rapid Influenza A Negative (Negative); Rapid Influenza B Negative (Negative)
[2023-04-16] VITALS (18 sets, daily range): BP systolic 138–148; BP diastolic 86–104; PULSE 70–105; RESP 18–20; TEMP 97.9–98.3; O2SAT 83–100
[2023-04-16] MEDS: EMPAGLIFLOZIN 10 MG TAB PO SCH (06:23)
[2023-04-16 06:27] LABS: Basophils # (auto) 0 10 ^3/uL (0-0.2); Basophils % (auto) 0.3 % (0.0-2.0); Eosinophils # (auto) 0 10 ^3/uL (0-0.8); Eosinophils % (auto) 0.1 % (0.0-7.0); Hematocrit 43.4 % (41.0-53.0); Hemoglobin 13.9 g/dL (13.5-17.5); Lymphocytes # (auto) 0.4 10 ^3/uL (0.4-5.4); Lymphocytes % (auto) 20.4 % (10.0-50.0); Mean Corpuscular Hemoglobin 31.3 pg (28.0-32.0); Mean Corpuscular Volume 97.7 fL (80.0-100.0); Monocytes # (auto) 0.1 10 ^3/uL (0-1.3); Monocytes % (auto) 3.4 % (0.0-12.0); Neutrophils # (auto) 1.6 10 ^3/uL (1.6-8.6); Neutrophils % (auto) 75.8 % (37.0-80.0); Nucleated Red Blood Cells % 0.2 %; Red Blood Cells 4.44 10^6/uL (4.5-5.90); Red Cell Distribution Width 14.4 % (11.8-14.3); White Blood Cell 2.1 10^3/uL (4.4-10.8)
[2023-04-16 06:39] LABS: Alanine Aminotransferase 15 U/L (7-40); Alkaline Phosphatase 60 U/L (46-116); Anion Gap 10 (5-15); Aspartate Aminotransferase 21 U/L (13-40); BUN/Creatinine Ratio 12.7 (10.0-20.0); Blood Urea Nitrogen 19 mg/dL (9-23); Calcium 8.8 mg/dL (8.7-10.4); Carbon Dioxide 23 mmol/L (20-30); Chloride 103 mmol/L (98-107); Potassium 4.7 mmol/L (3.5-5.1); Sodium 136 mmol/L (136-145)
[2023-04-16 06:40] LABS: Albumin 3.4 g/dL (3.2-4.8); Bilirubin, Total 0.8 mg/dL (0.2-1.0); Total Protein 6.5 g/dL (5.7-8.2)
[2023-04-16 06:42] LABS: Glucose 332 mg/dL (74-106)
[2023-04-16] MEDS: PANTOPRAZOLE 40 MG/10 ML VIAL INJ IV SCH (08:19)
[2023-04-16] MEDS: SPIRONOLACTONE 25 MG TAB PO SCH (08:19)
[2023-04-16] MEDS: LISINOPRIL 5 MG TAB PO SCH (08:20)
[2023-04-16] MEDS: amLODIPine BESYLATE 5 MG TAB PO SCH (08:21)
[2023-04-16] MEDS: NICOTINE 14 MG/24HR TOPICAL PATCH TD SCH (08:21)
[2023-04-16 10:58] LABS: LDL Cholesterol 65 mg/dL (< 100); Triglycerides 91 mg/dL (< 150)
[2023-04-16 11:00] LABS: Cholesterol 102 mg/dL (< 200); HDL Cholesterol 25 mg/dL (40-59)
[2023-04-16] MEDS: AZITHROMYCIN 500MG/ 250ML 250 ML IV SCH (13:28)
[2023-04-17] VITALS (11 sets, daily range): BP systolic 133–139; BP diastolic 87–109; PULSE 56–102; RESP 16–22; TEMP 97.9–98.4; O2SAT 91–96
[2023-04-17 05:45] LABS: Alanine Aminotransferase 13 U/L (7-40); Albumin 3.6 g/dL (3.2-4.8); Alkaline Phosphatase 66 U/L (46-116); Anion Gap 8 (5-15); Aspartate Aminotransferase 22 U/L (13-40); BUN/Creatinine Ratio 17.4 (10.0-20.0); Blood Urea Nitrogen 25 mg/dL (9-23); Calcium 9.3 mg/dL (8.5-10.1); Carbon Dioxide 27 mmol/L (20-30); Chloride 102 mmol/L (98-107); Sodium 137 mmol/L (136-145)
[2023-04-17 05:46] LABS: Bilirubin, Total 0.6 mg/dL (0.2-1.0); Total Protein 6.4 g/dL (5.7-8.2)
[2023-04-17 05:58] LABS: Glucose 175 mg/dL (74-106)
[2023-04-17 08:35] LABS: Hematocrit 48.6 % (41.0-53.0); Hemoglobin 15.6 g/dL (13.5-17.5); Mean Corpuscular Hemoglobin 31.3 pg (28.0-32.0); Mean Corpuscular Hgb Conc. 32.2 g/dL (32.0-36.0); Mean Corpuscular Volume 97.4 fL (80.0-100.0); Red Blood Cells 4.99 10^6/uL (4.5-5.90); Red Cell Distribution Width 14.8 % (11.8-14.3); White Blood Cell 17.5 10^3/uL (4.4-10.8)
[2023-04-17 08:56] LABS: Band Neutrophils % (manual) 0; Basophils % (manual) 0 (0.0-2.0); Blast Cells 0; Metamyelocytes % 0; Monocytes % (manual) 0 (0-12); Myelocytes % 0; Promyelocytes % 0; Reactive Lymphocytes 0
[2023-04-17 09:34] LABS: Hepatitis B Surface Antigen Negative (Negative)
[2023-04-17 09:55] LABS: Hepatitis C Antibody Negative (Negative)
[2023-04-17 12:36] LABS: Urine Bacteria NONE SEEN /hpf (None Seen); Urine Blood Negative /uL (Negative); Urine Clarity Clear (Clear); Urine Color Colorless (Yellow); Urine Protein, UAD Negative (Negative); Urine Specific Gravity 1.009 (1.001-1.035); Urine Urobilinogen Normal (Negative); Urine WBC <1 /hpf (0 - 3); Urine pH 5.5 (5.0-8.0)
[2023-04-17] MEDS ORDERED: PRED20TA2 PO (13:28)
[2023-04-17 14:41] LABS: Eosinophils % (manual) 2 (0-7); Lymphocytes % (manual) 8 (10.0-50.0)
[2023-04-17 14:43] LABS: Platelet Estimate Adequate
[2023-04-17] MEDS ORDERED: methylPREDNISolone SOD SUCC 40 MG/ML VL IV SCH (22:00)
== END 2023-04-17 18:55 | disposition home or self-care (01) | DRG 133 ==
LOC: ER 12:42 → TELE 17:15 → TELE-WESTW 04-16 00:57
PROVIDERS: ADMIT Internal Medicine Pulmonary Disease; ATTEND Internal Medicine Pulmonary Disease
DX: J96.21 Acute and chronic respiratory failure with hypoxia (principal); N17.0 Acute kidney failure with tubular necrosis; I50.23 Acute on chronic systolic (congestive) heart failure; J44.1 Chronic obstructive pulmonary disease with (acute) exacerbation; I11.0 Hypertensive heart disease with heart failure; I27.20 Pulmonary hypertension, unspecified; R73.9 Hyperglycemia, unspecified; Z20.822 Contact with and (suspected) exposure to COVID-19; K21.9 Gastro-esophageal reflux disease without esophagitis; I16.1 Hypertensive emergency; I25.2 Old myocardial infarction; Z99.81 Dependence on supplemental oxygen; Z88.6 Allergy status to analgesic agent; Z88.8 Allergy status to other drugs, medicaments and biological substances; Z87.891 Personal history of nicotine dependence; Z82.49 Family history of ischemic heart disease and other diseases of the circulatory system; Z82.5 Family history of asthma and other chronic lower respiratory diseases
CPT/HCPCS: 36415; 71045; 80053; 80061; 81001; 83036; 83880; 84484; 85007; 85025; 85027; 86803; 87340; 87426; 87804; 94640; 96374; 96375; C9113; G0378

== ENCOUNTER 2023-04-21 10:55 | Emergency (ER) | payer MEDICAID ==
[~2023-04-21] VITALS: Ht 170.2 cm; Wt 72.0 kg
[~2023-04-21 10:55] MED LIST changes: +PRED20TA2 PO
[2023-04-21 12:40] VITALS: TEMP 98
[2023-04-21] MEDS: ALBUTEROL SULF 2.5 MG/0.5ML(0.5%) NEB SOLN HHN ONE (12:41)
[2023-04-21] MEDS: IPRATROPIUM BROM 0.5 MG/2.5ML INH SOL HHN ONE (12:41)
[2023-04-21] MEDS: cloNIDine HCL 0.1 MG TAB PO ONE (12:42)
[2023-04-21] MEDS: methylPREDNISolone SOD SUCC 125 MG/2 ML VL IV ONE (12:47)
[2023-04-21 12:58] LABS: Hematocrit 45.7 % (41.0-53.0); Mean Corpuscular Hemoglobin 31.7 pg (28.0-32.0); Mean Corpuscular Hgb Conc. 32.9 g/dL (32.0-36.0); Mean Corpuscular Volume 96.3 fL (80.0-100.0); Red Blood Cells 4.74 10^6/uL (4.5-5.90); Red Cell Distribution Width 14.6 % (11.8-14.3); White Blood Cell 5.2 10^3/uL (4.4-10.8)
[2023-04-21 13:04] LABS: Chloride 107 mmol/L (98-107); Potassium 4.2 mmol/L (3.5-5.1); Sodium 140 mmol/L (136-145)
[2023-04-21 13:05] LABS: Anion Gap 4 (5-15); Carbon Dioxide 29 mmol/L (20-30)
[2023-04-21 13:06] LABS: Calcium 8.6 mg/dL (8.7-10.4)
[2023-04-21 13:10] LABS: BUN/Creatinine Ratio 17.1 (10.0-20.0); Blood Urea Nitrogen 20 mg/dL (9-23); Glucose 89 mg/dL (74-106)
[2023-04-21 13:19] LABS: Band Neutrophils % (manual) 0; Basophils % (manual) 0 (0.0-2.0); Blast Cells 0; Eosinophils % (manual) 0 (0-7); Lymphocytes % (manual) 22 (10.0-50.0); Metamyelocytes % 0; Monocytes % (manual) 11 (0-12); Myelocytes % 0; Promyelocytes % 0; Reactive Lymphocytes 0
[2023-04-21 13:20] LABS: Giant Platelets Few; Platelet Estimate Adequate; RBC Morphology Normal
[2023-04-21] MEDS ORDERED: AZIT1POW PO (14:11)
[2023-04-21 15:01] VITALS: BP 139/93; PULSE 80; RESP 18; O2SAT 94
== END 2023-04-21 15:14 | disposition home or self-care (01) ==
LOC: ER 10:55
DX: J20.9 Acute bronchitis, unspecified (principal); I12.9 Hypertensive chronic kidney disease with stage 1 through stage 4 chronic kidney disease, or unspecified chronic kidney disease; N18.9 Chronic kidney disease, unspecified; J44.9 Chronic obstructive pulmonary disease, unspecified; E78.5 Hyperlipidemia, unspecified; F12.10 Cannabis abuse, uncomplicated; Z87.891 Personal history of nicotine dependence
CPT/HCPCS: 36415; 71046; 80048; 85007; 85027; 93005; 94644; 96374; 99285; J2930; J7644

== ENCOUNTER 2024-08-19 12:42 | Inpatient (IN) | payer MEDICAID ==
[~2024-08-19] VITALS: Ht 170.2 cm; Wt 70.0 kg
[~2024-08-19 12:42] MED LIST changes: +AZIT1POW PO
--- NOTE | 2024-08-19 13:09 | ED.PDOC ---
History of Present Illness HPI Comments 64 year old male with a History of CHF, CKF, COPD, HTN, High Lipids, and MO presents to the ED for the c/c of 11/06 ABD pain that radiates to his back. Pt states that his pain started 3x days ago, and states that he did pay a visit to his PCP and was told he had "Something" in his Abdomen. Pt is noted to be on 3L O2 at home, and has a Social Hx of Marijuana and Tobacco abuse. No other symptoms or modifying factors reported at this time. Chief Complaint: Abdominal Pain Time Seen by MD: 13:05 Primary Care Provider: UNKNOWN Reviewed Notes: Nurses Notes, Medications, Allergies Allergies: Coded Allergies: Aluminum Hydroxide (Verified Allergy, Severe, 05/14/21) Aspirin (Verified Allergy, Severe, 05/14/21) Caffeine (Verified Allergy, Severe, 05/14/21) Citric Acid (Verified Allergy, Severe, 05/14/21) Magnesium Hydroxide (Verified Allergy, Severe, 05/14/21) Sodium Bicarbonate (Verified Allergy, Severe, 05/14/21) Ibuprofen (Verified Allergy, Unknown, 05/14/21) Home Meds Active Scripts Azithromycin (Zithromax) 1 Gm Pow, 1 PACK PO ONCE, #1 PACK Prov:CRISTAL CRANE MD 04/21/23 Prednisone (Prednisone) 20 Mg Tab, 20 MG PO BID for 5 Days, #10 MG Prov:AXEL BOLTON RESIDENT 04/17/23 Ipratropium-Albuterol (COMBIVENT RESPIMAT) Respimat Aer, 1 UNIT IN TID for 30 Days, AER 1 puff each time, as needed, TID for shortness of breath Prov:AL SANTANA DO 02/26/23 Lisinopril (Lisinopril) 5 Mg Tab, 5 MG PO DAILY for 30 Days, #30 TAB 11 Refills Prov:AL SANTANA DO 02/26/23 Empagliflozin (Jardiance) 10 Mg Tab, 10 MG PO QAM for 30 Days, #30 TAB 11 Refills Prov:AL SANTANA DO 02/26/23 Amlodipine Besylate (NORVASC TABLET) 5 Mg Tb, 10 MG PO DAILY for 30 Days, #60 TAB 11 Refills Prov:AL SANTANA DO 02/26/23 Spironolactone (Spironolactone) 25 Mg Tab, 1 TAB PO DAILY, #90 TAB 1 Refill Prov:KARLEE SOLIZ MD 01/11/23 Clonidine Hydrochloride (Clonidine Hcl) 0.1 Mg Tab, 0.1 MG PO BID for 30 Days, #60 TAB Prov:KARLEE SOLIZ MD 01/11/23 Montelukast Sodium (MONTELUKAST SODIUM) 10 Mg Tab, 1 TAB PO HS, #30 Prov:JEAN BLANK 05/27/21 Reported Medications Albuterol Sulfate (VENTOLIN MDI) 90 Mcg Ih, 2 PUFF INH Q4H PRN 02/23/23 Budesonide-Formoterol Fumarate (Budesonide/Formoterol Fum 160-4.5 Mcg/Act) 1 Aer Aer, 1 PUFF INH BID 02/23/23 Pantoprazole Sodium Sesquihydr (Pantoprazole Sodium) 40 Mg Tab, 1 TAB PO QAM 05/15/21 Nicotine (Nicotine Transdermal Syst) 14 Mg/24 Hr Dis, 1 PATCH TOP DAILYPRN 05/15/21 Information Source: Patient Mode of Arrival: Wheelchair Severity: Moderate Timing: Days Duration: Since onset, Days Prehospital treatment: None Past Medical History PAST MEDICAL HISTORY: CKF, COPD, High Lipids, HTN, MO Surgical History: Hernia Repair Family History Family History: Family hx of DM Social History Smoker: Quit Less Than 1 Year Alcohol: Denies ETOH Use Drugs: Marijuana Lives In: Home Constitutional: denies: chills, diaphoresis, fatigue, fever, malaise, sweats, weakness, others EENTM: denies: blurred vision, double vision, ear bleeding, ear discharge, ear drainage, ear pain, ear ringing, eye pain, eye redness, hearing loss, mouth pain, mouth swelling, nasal discharge, nose bleeding, nose congestion, nose pain, photophobia, tearing, throat pain, throat swelling, voice changes, others Respiratory: denies: cough, hemoptysis, orthopnea, SOB at rest, shortness of breath, SOB with excertion, stridor, wheezing, others Cardiovascular: denies: chest pain, dizzy spells, diaphoresis, Dyspnea on exertion, edema, irregular heart beat, left arm pain, lightheadedness, palpitations, PND, syncope, others Gastrointestinal: reports: abdominal pain; denies: abdomen distended, blood streaked bowels, constipated, diarrhea, dysphagia, difficulty swallowing, hematemesis, melena, nausea, poor appetite, poor fluid intake, rectal bleeding, rectal pain, vomiting, others Genitourinary: denies: burning, dysuria, flank pain, frequency, hematuria, incontinence, penile discharge, penile sore, pain, testicle pain, testicle swelling, urgency, others Neurological: denies: dizziness, fainting, headache, left sided numbness, left sided weakness, numbness, paresthesia, pre-existing deficit, right sided numbness, right sided weakness, seizure, speech problems, tingling, tremors, weakness, others Musculoskeletal: reports: back pain; denies: gout, joint pain, joint swelling, muscle pain, muscle stiffness, neck pain, others Integumetry: denies: bruises, change in color, change in hair/nails, dryness, laceration, lesions, lumps, rash, wounds, others Allergic/Immunocompromised: denies: Difficulty Healing, Frequent Infections, Hives, Itching, others Hematologic/Lymphatic: denies: anemia, blood clots, easy bleeding, easy bruising, swollen glands, others Endocrine: denies: excessive hunger, excessive sweating, excessive thirst, excessive urination, flushing, intolerance to cold, intolerance to heat, unexplained weight gain, unexplained weight loss, others Psychiatric: denies: anxiety, bipolar disorder, depression, hopeless, panic disorder, schizophrenia, sleepless, suicidal, others All Other Systems: Reviewed and Negative Physical Exam General Appearance: Moderate Distress HEENT: Normal ENT Inspection, Pharynx Normal, TMs Normal Neck: Full Range of Motion, Non-Tender, Normal, Normal Inspection Respiratory: Chest Non-Tender, Lungs Clear, No Accessory Muscle Use, No Respiratory Distress, Normal Breath Sounds Cardiovascular: No Edema, No JVD, No Murmur, No Gallop, Normal Peripheral Pulses, Regular Rate/Rhythm Breast Exam: Deferred Gastrointestinal: No Organomegaly, Non Tender, No Pulsatile Mass, Normal Bowel Sounds, Soft Genitalia: Deferred Pelvic: Deferred Rectal: Deferred Extremities: No calf tenderness, Normal capillary refill, Normal inspection, Normal range of motion, Non-tender, No pedal edema Musculoskeletal : Apperance: Normal Neurologic: Alert, stoker installer II-XII nml as Tested, No Motor Deficits, Normal Affect, Normal Mood, No Sensory Deficits Cerebellar Function: Normal Reflexes: Normal Skin: Dry, Normal Color, Warm Lymphatic: No Adenopathy Was a procedure done? Was a procedure done?: No Differential Dx Considerations may include: Generalized weakness, diverticulitis, small-bowel obstruction, dehydration X-Ray, Labs, Meds, VS Vital Signs Date Time Temp Pulse Resp B/P (MAP) Pulse Ox O2 Delivery O2 Flow Rate FiO2 08/19/24 12:50 98.3 142 91 91/9 (36) 92 98.3 Lab Test 08/19/24 13:34 Range/Units White Blood Count 3.5 L 4.4-10.8 10^3/uL Red Blood Count 4.94 4.5-5.90 10^6/uL Hemoglobin 16.6 13.5-17.5 g/dL Hematocrit 49.3 41.0-53.0 % Mean Corpuscular Volume 99.9 80.0-100.0 fL Mean Corpuscular Hemoglobin 33.6 H 28.0-32.0 pg Mean Corpuscular Hemoglobin Concent 33.7 32.0-36.0 g/dL Red Cell Distribution Width 13.2 11.8-14.3 % Platelet Count 129 L 140-450 10^3/uL Mean Platelet Volume 10.4 6.9-10.8 fL Neutrophils (%) (Auto) 49.5 37.0-80.0 % Lymphocytes (%) (Auto) 36.1 10.0-50.0 % Monocytes (%) (Auto) 9.2 0.0-12.0 % Eosinophils (%) (Auto) 4.7 0.0-7.0 % Basophils (%) (Auto) 0.5 0.0-2.0 % Neutrophils # (Auto) 1.7 1.6-8.6 10 ^3/uL Lymphocytes # (Auto) 1.2 0.4-5.4 10 ^3/uL Monocytes # (Auto) 0.3 0-1.3 10 ^3/uL Eosinophils # (Auto) 0.2 0-0.8 10 ^3/uL Basophils # (Auto) 0 0-0.2 10 ^3/uL Nucleated Red Blood Cells 0.1 % Sodium Level 141 136-145 mmol/L Potassium Level 4.8 3.5-5.1 mmol/L Chloride Level 107 98-107 mmol/L Carbon Dioxide Level 29 20-31 mmol/L Anion Gap 5 5-15 Blood Urea Nitrogen 23 9-23 mg/dL Creatinine 1.50 H 0.700-1.30 mg/dL Glomerular Filtration Rate Calc 52 >90 mL/min BUN/Creatinine Ratio 15.3 10.0-20.0 Serum Glucose 93 74-106 mg/dL Calcium Level 9.7 8.7-10.4 mg/dL Total Bilirubin 0.9 0.2-1.0 mg/dL Aspartate Amino Transferase (AST) 23 <34 U/L Alanine Aminotransferase (ALT) 16 7-40 U/L Alkaline Phosphatase 70 46-116 U/L Troponin I High Sensitivity 5 </=54 ng/L B-Type Natriuretic Peptide 17.88 0-100 pg/mL Total Protein 7.2 5.7-8.2 g/dL Albumin 4.9 H 3.2-4.8 g/dL Lipase 25 12-53 U/L IMPRESSION: Extensive pulmonary emphysematous changes within the visualized portion of the lower lung golden. 1.5 cm right middle lobe nodular lesion, appears similar to previous examination could represent scarring however neoplasm not ruled out. Recommend follow-up per Fleischner society criteria. Moderate volume stool within the colon. Numerous bilateral renal cysts. Atherosclerotic disease. Other findings as described The patient's lipase is within normal limits The CBC and chemistry panel shows a creatinine of 1.50 The rest of the chemistry panel and CBC is within normal limits The patient is being admitted at this time Images Reviewed?: Images reviewed and evaluated by me Time of 1ST Reevaluation: 13:36 Reevaluation 1ST: Unchanged Patient Education/Counseling: Diagnosis, Treatment, Prognosis Family Education/Counseling: No Family Present SEPSIS Sepsis Screen Physician Orders Troponin-I Hs (08/19/24 15:00) Troponin-I Hs (08/20/24 00:00) Urinalysis (08/19/24 13:05) Ct Ab Pel Wo Con-No Oral Or Iv (08/19/24 13:05) Heplock Iv (08/19/24 13:05) Automotive Fleet Supervisor (08/19/24 13:05) Blood Pressure (08/19/24 13:05) Pulse Oximetry (08/19/24 13:05) Troponin-I Hs (08/19/24 16:05) Vital Signs Date Time Temp Pulse Resp B/P (MAP) Pulse Ox O2 Delivery O2 Flow Rate FiO2 08/19/24 12:50 98.3 142 91 91/9 (36) 92 98.3 Laboratory Tests Test 08/19/24 13:34 White Blood Count 3.5 10^3/uL (4.4-10.8) L Departure 1 Departure Time of Disposition: 14:43 Impression: Primary Impression: Intractable abdominal pain Disposition: ADMITTED INPATIENT Admit to: Med Surg Condition: Fair Critical Care Note Critical Care Time?: No Stability Stability form required: Yes Unstable for transfer: ED Physician Assesment (Clinical assesment) Heart Score Heart Score: Heart Score Response (Comments) Value History N/A 0 EKG N/A 0 Age N/A 0 Risk Factors N/A 0 Troponin N/A 0 Total 0 I personally scribed for CRISTAL CRANE MD ([email or web address]) on 08/19/24 at 13:09. El ectronically submitted by Wilmer Reich ([email or web address]). I personally scribed for CRISTAL CRANE MD ([email or web address]) on 08/19/24 at 14:26. Electronically submitted by Wilmer Reich ([email or web address]). CRISTAL CRANE MD Aug 19, 2024 13:09
--- NOTE | 2024-08-19 14:08 | DVH ---
Indication: sob Technique: CT axial images of the abdomen and pelvis are obtained without contrast. Coronal and sagit ashley reformats were obtained. Radiation Dose Information: CTDI volume is 5.6 mGy. Dose-length product is 300.43 mGy*cm Comparison: CT CT AB PEL WO CON-NO ORAL OR IV on DOS: 01/10/23 FINDINGS: There is limited interpretation of the abdomen and pelvis without administration of intravenous contr ast. Pulmonary emphysematous changes. Right middle lobe nodule measuring 1.5 cm. Bilateral bronchiectatic changes. Bilateral atelectasis. Adrenal glands, spleen, pancreas unremarkable in shape. Left hepatic lobe cyst measuring [address] evidence for cholelithiasis. Numerous bilateral renal cysts. No hydronephrosis. Stomach is partially distended. Small bowel loops are normal in caliber. Moderate volume stool of the of the colon. No secondary signs for appendicitis.. Abdominal aortic atherosclerotic disease. Bladder partially distended. No free pelvic fluid. No ingui nal lymphadenopathy. Moderate to advanced degenerative disc disease at L5-S1. IMPRESSION: Extensive pulmonary emphysematous changes within the visualized portion of the lower lung golden. 1.5 cm right middle lobe nodular lesion, appears similar to previous examination could represent scar ring however neoplasm not ruled out. Recommend follow-up per Fleischner society criteria. Moderate volume stool within the colon. Numerous bilateral renal cysts. Atherosclerotic disease. Other findings as described
[2024-08-19 14:13] LABS: Alanine Aminotransferase 16 U/L (7-40); Alkaline Phosphatase 70 U/L (46-116); Anion Gap 5 (5-15); Aspartate Aminotransferase 23 U/L (<34); BUN/Creatinine Ratio 15.3 (10.0-20.0); Calcium 9.7 mg/dL (8.7-10.4); Carbon Dioxide 29 mmol/L (20-31); Chloride 107 mmol/L (98-107); Glucose 93 mg/dL (74-106); Lipase 25 U/L (12-53); Potassium 4.8 mmol/L (3.5-5.1); Sodium 141 mmol/L (136-145); Total Protein 7.2 g/dL (5.7-8.2)
[2024-08-19 14:14] LABS: Albumin 4.9 g/dL (3.2-4.8); Bilirubin, Total 0.9 mg/dL (0.2-1.0); Blood Urea Nitrogen 23 mg/dL (9-23)
[2024-08-19 14:27] LABS: Basophils # (auto) 0 10 ^3/uL (0-0.2); Basophils % (auto) 0.5 % (0.0-2.0); Eosinophils # (auto) 0.2 10 ^3/uL (0-0.8); Eosinophils % (auto) 4.7 % (0.0-7.0); Hematocrit 49.3 % (41.0-53.0); Hemoglobin 16.6 g/dL (13.5-17.5); Lymphocytes # (auto) 1.2 10 ^3/uL (0.4-5.4); Lymphocytes % (auto) 36.1 % (10.0-50.0); Mean Corpuscular Hemoglobin 33.6 pg (28.0-32.0); Mean Corpuscular Hgb Conc. 33.7 g/dL (32.0-36.0); Mean Corpuscular Volume 99.9 fL (80.0-100.0); Monocytes # (auto) 0.3 10 ^3/uL (0-1.3); Monocytes % (auto) 9.2 % (0.0-12.0); Neutrophils # (auto) 1.7 10 ^3/uL (1.6-8.6); Neutrophils % (auto) 49.5 % (37.0-80.0); Nucleated Red Blood Cells % 0.1 %; Platelet Count (auto) 129 10^3/uL (140-450); Red Blood Cells 4.94 10^6/uL (4.5-5.90); Red Cell Distribution Width 13.2 % (11.8-14.3); White Blood Cell 3.5 10^3/uL (4.4-10.8)
[2024-08-19 16:04] LABS: Urine Bacteria None Seen /hpf (None Seen)
[2024-08-19 16:21] LABS: Urine Blood Negative /uL (Negative); Urine Clarity Clear (Clear); Urine Color Light-Yellow (Yellow); Urine Protein, UAD Negative (Negative); Urine Specific Gravity 1.012 (1.001-1.035); Urine Squamous Epithelial Cell None Seen /hpf (<5); Urine Urobilinogen Normal (Negative); Urine WBC < 1 /HPF (0-3)
[2024-08-19] MEDS ORDERED: hydrALAZINE HCL 20 MG/ML VL IV PRN (19:30)
[2024-08-19] MEDS ORDERED: ONDANSETRON HCL 4 MG/2 ML VIAL IV PRN (19:30)
[2024-08-19] MEDS ORDERED: DOCUSATE SOD 100 MG CAP PO PRN (19:30)
[2024-08-19] MEDS ORDERED: ACETAMINOPHEN 325 MG TAB PO PRN (19:30)
[2024-08-19] MEDS ORDERED: MORPHINE SULFATE INJ 2 MG/ml SYRG IV PRN ×2 (19:30→20:15)
[2024-08-19 19:33] VITALS: BP 140/92; PULSE 90; RESP 18; TEMP 98.3; O2SAT 93
--- NOTE | 2024-08-19 20:10 | DVHHP2 ---
History of Present Illness Reason for Visit: Intractable abdominal pain History of Present Illness The patient is a a 64-year-old male with past medical history of COPD, CKF, hypertension, hyperlipidemia, and PA presented to [facility] with complaint of acute abdominal pain. Patient reports he has been experiencing abdominal pain for the past 3 days, rating pain 9/10 numeric scale, pressure sensation, shortness of breaths, getting worse today that prompted this visit. Patient was seen and evaluated in the ED, laboratory data shows WBC 3.5, platelets 129, sodium 141, potassium 4.8, BUN 23, creatinine 1.50, glucose 93, calcium 9.7, lipase 25, troponin 4, BNP 17.88, blood pressure 140/92, heart rate 90, temperature 98.3 F, O2 saturation 93% on oxygen. Abdomen/pelvis CT revealing extensive pulmonary emphysematous changes within the visualized portion of the lower lung golden, 1.5 cm right middle lobe nodules lesion, appears smaller to previous examination could represent scarring however neoplasm not rule out. Please see medication orders section in the computer. On my assessment, patient denies chest pain, no headache, no dizziness, no diaphoresis, currently on oxygen, no diarrhea, no nausea, no vomiting, no fever, no chills. Patient was admitted for further evaluation and medical management. Past Medical History CKF, COPD, High Lipids, HTN, PA Past Surgical History Hernia Repair Family History Reviewed, noncontributory to the management of this case. Past Social History The patient lives at home, quit smoking cigarettes less than 1 year, denies alcohol use, uses marijuana. Review of Systems Constitutional: Yes: Weakness; No: Fever, Chills, Sweats, Malaise, Other Eyes: No: Pain, Vision change, Conjunctivae inflammation, Eyelid inflammation, Other, Redness ENT: No: Ear pain, Ear discharge, Nose pain, Nose discharge, Nose congestion, Mouth pain, Mouth swelling, Throat pain, Throat swelling, Other Respiratory: Shortness of breath; No: Cough, Dry, SOB with excertion, Wheezing, Hemoptysis, Pleuritic Pain, Sputum, Wheezing, Other Cardiovascular: No: Chest Pain, Palpitations, Orthopnea, Paroxysmal Noc. Dysp segun, Edema, Lt Headedness, Other Gastrointestinal: Abdominal Pain; No: Nausea, Vomiting, Diarrhea, Constipation, Melena, Hematochezia, Other Genitourinary: No Dysuria, No Frequency, No Incontinence, No Hematuria, No Retention, No Other Musculoskeletal: back pain; No: other, neck pain, shoulder pain, arm pain, hand pain, leg pain, foot pain Skin: No: Rash, Lesions, Jaundice, Bruising, Other Neurological: No: Weakness, Numbness, Incoordination, Change in speech, Confusion, Seizures, Other Allergies: Coded Allergies: Aluminum Hydroxide (Verified Allergy, Severe, 05/14/21) Aspirin (Verified Allergy, Severe, 05/14/21) Caffeine (Verified Allergy, Severe, 05/14/21) Citric Acid (Verified Allergy, Severe, 05/14/21) Magnesium Hydroxide (Verified Allergy, Severe, 05/14/21) Sodium Bicarbonate (Verified Allergy, Severe, 05/14/21) Ibuprofen (Verified Allergy, Unknown, 05/14/21) Medications Current Medications Medications Dose Ordered Sig/Jayla Route Start Time Stop Time Status Last Admin Dose Admin Hydralazine HCl 10 mg Q6HP PRN IV 08/19/24 19:30 UNV Amlodipine Besylate 5 mg DAILY PO 08/20/24 10:00 UNV Metoprolol Tartrate 25 mg BID PO 08/19/24 22:00 UNV Albuterol 2.5 mg Q4HPRN PRN NEB 08/19/24 19:30 UNV Ipratropium [place] 0.5 mg Q4HPRN PRN NEB 08/19/24 19:30 UNV Sodium Chloride 10 ml Q8HR IV 08/19/24 22:00 Acetaminophen/ Hydrocodone Bitart 1 tab Q4HP PRN PO 08/19/24 19:30 UNV Ondansetron HCl 4 mg Q4HP PRN IV 08/19/24 19:30 UNV Docusate Sodium 100 mg BIDPRN PRN PO 08/19/24 19:30 UNV Acetaminophen 650 mg Q6HP PRN PO 08/19/24 19:30 UNV Morphine Sulfate 2 mg Q4HPRN PRN IV 08/19/24 19:30 UNV Pantoprazole Sodium 40 mg DAILY IV 08/20/24 10:00 Exam Vital Signs Vital Signs Date Time Temp Pulse Resp B/P (MAP) Pulse Ox O2 Delivery O2 Flow Rate FiO2 08/19/24 19:33 98.3 90 18 140/92 93 21 98.3 08/19/24 15:12 Room Air General Appearance: Alert, Oriented X3, Cooperative, No acute distress HEENT: Atraumatic, PERRLA, EOMI, Mucous membr. moist/pink Respiratory: Normal air movement Cardiovascular: Regular rate, Normal S1, Normal S2, No murmurs Abdominal: Normal bowel sounds, Soft, No hepatospenomegaly, No masses, Other (Reports tenderness) Extremities: No clubbing, No cyanosis, No edema, Normal pulses, Other (We akness) Skin: No rashes, No breakdown, No significant lesion Neuro: Normal speech, Normal tone, Sensation intact, Cranial nerves 3-12 NL, Reflexes 2+, Other (Generalized weakness) Psych/Mental Status: Mental status NL, Mood NL Labs/Xrays Labs Test 08/19/24 16:02 08/19/24 14:39 08/19/24 13:34 Range/Units Urine Color Light-yellow Yellow Urine Clarity Clear Clear Urine pH 7.0 5.0-9.0 Urine Specific [place] 1.012 1.001-1.035 Urine Protein Negative Negative Urine Ketones Negative Negative Urine Blood Negative Negative /uL Urine Nitrite Negative Negative Urine Bilirubin Negative Negative Urine Urobilinogen Normal Negative mg/dL Urine Leukocyte Esterase Negative Negative /uL Urine RBC <1 0 - 3 /hpf Urine Microscopic WBC < 1 0-3 /HPF Urine Squamous Epithelial Cells None seen <5 /hpf Urine Bacteria None seen None Seen /hpf Urine Glucose Normal Normal mg/dL Troponin I High Sensitivity 4 </=54 ng/L White Blood Count 3.5 L 4.4-10.8 10^3/uL Red Blood Count 4.94 4.5-5.90 10^6/uL Hemoglobin 16.6 13.5-17.5 g/dL Hematocrit 49.3 41.0-53.0 % Mean Corpuscular Volume 99.9 80.0-100.0 fL Mean Corpuscular Hemoglobin 33.6 H 28.0-32.0 pg Mean Corpuscular Hemoglobin Concent 33.7 32.0-36.0 g/dL Red Cell Distribution Width 13.2 11.8-14.3 % Platelet Count 129 L 140-450 10^3/uL Mean Platelet Volume 10.4 6.9-10.8 fL Neutrophils (%) (Auto) 49.5 37.0-80.0 % Lymphocytes (%) (Auto) 36.1 10.0-50.0 % Monocytes (%) (Auto) 9.2 0.0-12.0 % Eosinophils (%) (Auto) 4.7 0.0-7.0 % Basophils (%) (Auto) 0.5 0.0-2.0 % Neutrophils # (Auto) 1.7 1.6-8.6 10 ^3/uL Lymphocytes # (Auto) 1.2 0.4-5.4 10 ^3/uL Monocytes # (Auto) 0.3 0-1.3 10 ^3/uL Eosinophils # (Auto) 0.2 0-0.8 10 ^3/uL Basophils # (Auto) 0 0-0.2 10 ^3/uL Nucleated Red Blood Cells 0.1 % Sodium Level 141 136-145 mmol/L Potassium Level 4.8 3.5-5.1 mmol/L Chloride Level 107 98-107 mmol/L Carbon Dioxide Level 29 20-31 mmol/L Anion Gap 5 5-15 Blood Urea Nitrogen 23 9-23 mg/dL Creatinine 1.50 H 0.700-1.30 mg/dL Glomerular Filtration Rate Calc 52 >90 mL/min BUN/Creatinine Ratio 15.3 10.0-20.0 Serum Glucose 93 74-106 mg/dL Calcium Level 9.7 8.7-10.4 mg/dL Total Bilirubin 0.9 0.2-1.0 mg/dL Aspartate Amino Transferase (AST) 23 <34 U/L Alanine Aminotransferase (ALT) 16 7-40 U/L Alkaline Phosphatase 70 46-116 U/L B-Type Natriuretic Peptide 17.88 0-100 pg/mL Total Protein 7.2 5.7-8.2 g/dL Albumin 4.9 H 3.2-4.8 g/dL Lipase 25 12-53 U/L PATIENT: CAITLIN SCHAEFERACCT: [id number] UNIT: [id number] : 1960 LOC: ER ROOM / BED: / AGE / SEX: 64 / M ADM STATUS: REG ER SERVICE [id number] ORDERING PHYSICIAN: CRISTAL CRANE MD PROCEDURE(s): ABPL - CT AB PEL WO CON-NO ORAL OR IV REASON: sob ORDER NUMBER(s): [id number], ACCESSION NUMBER(s): [id number] Indication: sob Technique: CT axial images of the abdomen and pelvis are obtained without contrast. Coronal and sagittal reformats were obtained. Radiation Dose Information: CTDI volume is 5.6 mGy. Dose-length product is 300.43 mGy*cm Comparison: CT CT AB PEL WO CON-NO ORAL OR IV on DOS: 01/10/23 FINDINGS: There is limited interpretation of the abdomen and pelvis without administration of intravenous contrast. Pulmonary emphysematous changes. Right middle lobe nodule measuring 1.5 cm. Bilateral bronchiectatic changes. Bilateral atelectasis. Adrenal glands, spleen, pancreas unremarkable in shape. Left hepatic lobe cyst measuring [address] evidence for cholelithiasis. Numerous bilateral renal cysts. No hydronephrosis. Stomach is partially distended. Small bowel loops are normal in caliber. Moderate volume stool of the of the colon. No secondary signs for appendicitis.. Abdominal aortic atherosclerotic disease. Bladder partially distended. No free pelvic fluid. No inguinal lymphadenopathy. Moderate to advanced degenerative disc disease at L5-S1. IMPRESSION: Extensive pulmonary emphysematous changes within the visualized portion of the lower lung golden. 1.5 cm right middle lobe nodular lesion, appears similar to previous examination could represent scarring however neoplasm not ruled out. Recommend follow-up per Fleischner society criteria. Moderate volume stool within the colon. Numerous bilateral renal cysts. Atherosclerotic disease. Other findings as described Assessment/Plan Assessment/Plan Intractable abdominal pain Lower back pain Shortness of breaths Generalized weakness Plan 1. Admit to med surge unit 2. Breathing treatment 3. Pain control management 4. Management of fluids and electrolytes 5. Consultation for hospitalist 6. Diagnostic tests abdomen/pelvis CT 7. DVT prophylaxis on SCDs 8. Repeat labs CBC, CMP in a.m. 9. Continue with current medical management 10. Treatment plan discussed with patient and RN. Patient verbalized u nderstanding. Plan discussed with: Patient, Other (RN) My Orders Orders - AMPARO MARIN DNP Procedure Category Date Status Time Hydralazine Injection PHA 08/19/24 Logged (Apresoline Inject 19:30 Amlodipine Tablet PHA 08/20/24 Logged (Norvasc Tablet) 10:00 Metoprolol Tartrate PHA 08/19/24 Logged Tablet (Lopressor Ta 22:00 Albuterol Medneb PHA 08/19/24 Logged (Ventolin Medneb) 19:30 Ipratropium Medneb PHA 08/19/24 Logged (Atrovent Medneb) 19:30 Allergies LARRY 08/19/24 In Process 19:20 Code Status CODE 08/19/24 Transmitted 19:20 Sodium Chloride Lock PHA 08/19/24 In Process (Saline Lock Ns) 22:00 Oxygen Per Hour RT 08/19/24 Transmitted 19:20 Hydrocodone-Acet PHA 08/19/24 Logged 5/325mg Tab ([place] 19:30 Ondansetron Hcl PHA 08/19/24 Logged (Zofran) 19:30 Docusate Sodium PHA 08/19/24 Logged Capsule (Colace 19:30 Complete Blood Count LAB 08/20/24 Verified 04:00 Comprehensive LAB 08/20/24 Verified Metabolic Panel 04:00 Condition: Serious LARRY 08/19/24 In Process 19:20 Acetaminophen Tablet PHA 08/19/24 Logged (Tylenol Tablet) 19:30 Clear Liq Diet DIET 08/20/24 Transmitted Breakfast Bedrest With Bathroom LARRY 08/19/24 In Process Privileg 19:20 Morphine Sulfate PHA 08/19/24 Logged Injection 19:30 Sequential LARRY 08/19/24 In Process Compression Device Pantoprazole PHA 08/20/24 In Process (Protonix) 10:00 Problem List: (1) Intractable abdominal pain (2) Lower back pain (3) Shortness of breath (4) Generalized weakness Date of Service: Aug 19, 2024 Billing Provider: AMPARO MARIN DNP Common Visit Codes: 34045-[id number] INP/OBS CARE (HIGH) AMPARO MARIN DNP Aug 19, 2024 20:10
[2024-08-19] MEDS ORDERED: NITROGLYCERIN 0.4 MG SL TAB SL PRN (20:15)
[2024-08-19 22:25] VITALS: PULSE 80; RESP 18; O2SAT 90
[2024-08-19] MEDS: SODIUM CHLOR 0.9% PF (SALINE LOCK) 10ML VIAL/SYR IV SCH (22:46)
[2024-08-19] MEDS: METOPROLOL TARTRATE 25 MG TAB PO SCH (22:51)
[2024-08-19] MEDS: MORPHINE SULFATE 4 MG/ML SYR/VIAL IV PRN (22:58)
[2024-08-20] VITALS (10 sets, daily range): BP systolic 118–144; BP diastolic 61–105; PULSE 71–89; RESP 16–20; TEMP 97.6–98.2; O2SAT 90–100
[2024-08-20 04:36] LABS: Basophils # (auto) 0 10 ^3/uL (0-0.2); Basophils % (auto) 0.5 % (0.0-2.0); Eosinophils # (auto) 0.2 10 ^3/uL (0-0.8); Hematocrit 51.8 % (41.0-53.0); Hemoglobin 17.4 g/dL (13.5-17.5); Lymphocytes # (auto) 1.8 10 ^3/uL (0.4-5.4); Lymphocytes % (auto) 38.8 % (10.0-50.0); Mean Corpuscular Hgb Conc. 33.6 g/dL (32.0-36.0); Mean Corpuscular Volume 101.1 fL (80.0-100.0); Monocytes # (auto) 0.5 10 ^3/uL (0-1.3); Monocytes % (auto) 11.1 % (0.0-12.0); Neutrophils # (auto) 2.1 10 ^3/uL (1.6-8.6); Neutrophils % (auto) 45.6 % (37.0-80.0); Nucleated Red Blood Cells % 0.4 %; Platelet Count (auto) 133 10^3/uL (140-450); Red Blood Cells 5.12 10^6/uL (4.5-5.90); Red Cell Distribution Width 13.5 % (11.8-14.3); White Blood Cell 4.6 10^3/uL (4.4-10.8)
[2024-08-20 04:39] LABS: Alanine Aminotransferase 15 U/L (7-40); Alkaline Phosphatase 68 U/L (46-116); Anion Gap 6 (5-15); Calcium 9.7 mg/dL (8.7-10.4); Carbon Dioxide 27 mmol/L (20-31); Chloride 106 mmol/L (98-107); Glucose 90 mg/dL (74-106); Sodium 139 mmol/L (136-145); Total Protein 7.5 g/dL (5.7-8.2)
[2024-08-20 04:40] LABS: Aspartate Aminotransferase 24 U/L (<34); BUN/Creatinine Ratio 12.9 (10.0-20.0); Blood Urea Nitrogen 18 mg/dL (9-23)
[2024-08-20 04:41] LABS: Bilirubin, Total 1.1 mg/dL (0.2-1.0)
[2024-08-20 04:45] LABS: Albumin 4.9 g/dL (3.2-4.8); Potassium 5.2 mmol/L (3.5-5.1)
[2024-08-20] MEDS: amLODIPine BESYLATE 5 MG TAB PO SCH (10:15)
[2024-08-20] MEDS: PANTOPRAZOLE 40 MG/10 ML VIAL INJ IV SCH (10:15)
[2024-08-20] MEDS: IPRATROPIUM BROM 0.5 MG/2.5ML INH SOL NEB PRN (10:34)
[2024-08-20] MEDS: ALBUTEROL SULF 2.5 MG/0.5ML(0.5%) NEB SOLN NEB PRN (10:34)
--- NOTE | 2024-08-20 14:46 | DVHPN2 ---
Reviewed: Care Plan, H&P, Labs, Medications, Previous Orders, Radiology Changes from previous H/P or p: No Changes General: Per HPI Eyes: No Pain, No Vision change, No Conjunctivae inflammation, No Eyelid inflammation, No Other, No Redness ENT: No Ear pain, No Ear discharge, No Nose pain, No Nose discharge, No Nose congestion, No Mouth pain, No Mouth swelling, No Throat pain, No Throat swelling, No Other Cardiovascular: No Chest Pain, No Palpitations, No Orthopnea, No Paroxysmal Noc. Dyspnea, No Edema, No Lt Headedness, No Other Respiratory: No Cough, No Dry; Shortness of breath; No SOB with excertion, No Wheezing, No Hemoptysis, No Pleuritic Pain, No Sputum, No Other Gastrointestinal: No Nausea, No Vomiting; Abdominal Pain; No Diarrhea, No Constipation, No Melena, No Hematochezia, No Other Genitourinary: No Dysuria, No Frequency, No Incontinence, No Hematuria, No Retention, No Other Musculoskeletal: No other, No neck pain, No shoulder pain, No arm pain; back pain; No hand pain, No leg pain, No foot pain Skin: No Rash, No Lesions, No Jaundice, No Bruising, No Other Objective Vitals Vital Signs Date Time Temp Pulse Resp B/P (MAP) Pulse Ox O2 Delivery O2 Flow Rate FiO2 08/20/24 12:33 97.6 89 18 118/82 (94) 95 97.6 08/20/24 10:32 Nasal Cannula 3.0 08/20/24 10:32 32 Intake/Output Intake and Output 08/20/24 07:00 Intake Total 200 ml Balance 200 ml Intake Oral 200 ml # Voids 1 General Appearance: Alert, Oriented X3, Cooperative Cardiovascular: Regular rate, Normal S1, Normal S2 Medications Current Medications Medications Dose Ordered Sig/Jayla Route Start Time Stop Time Status Last Admin Dose Admin Hydralazine HCl 10 mg Q6HP PRN IV 08/19/24 19:30 Amlodipine Besylate 5 mg DAILY PO 08/20/24 10:00 08/20/24 10:15 5 MG Metoprolol Tartrate 25 mg BID PO 08/19/24 22:00 08/20/24 10:16 25 MG Albuterol 2.5 mg Q4HPRN PRN NEB 08/19/24 19:30 08/20/24 10:34 2.5 MG Ipratropium [place] 0.5 mg Q4HPRN PRN NEB 08/19/24 19:30 08/20/24 10:34 0.5 MG Sodium Chloride 10 ml Q8HR IV 08/19/24 22:00 08/20/24 05:24 10 ML Acetaminophen/ Hydrocodone Bitart 1 tab Q4HP PRN PO 08/19/24 19:30 Ondansetron HCl 4 mg Q4HP PRN IV 08/19/24 19:30 Docusate Sodium 100 mg BIDPRN PRN PO 08/19/24 19:30 Acetaminophen 650 mg Q6HP PRN PO 08/19/24 19:30 Pantoprazole Sodium 40 mg DAILY IV 08/20/24 10:00 08/20/24 10:15 40 MG Nitroglycerin 0.4 mg Q5MINP PRN SL 08/19/24 20:15 Morphine Sulfate 2 mg Q30M PRN IV 08/19/24 20:15 Morphine Sulfate 2 mg Q4HPRN PRN IV 08/19/24 23:00 08/19/24 22:58 2 MG Laboratory Results Laboratory Tests 08/20/24 03:48 Chemistry Test 08/20/24 03:48 Albumin 4.9 g/dL (3.2-4.8) H Calcium Level 9.7 mg/dL (8.7-10.4) Total Protein 7.5 g/dL (5.7-8.2) LFT Test 08/20/24 03:48 Alanine Aminotransferase (ALT) 15 U/L (7-40) Alkaline Phosphatase 68 U/L (46-116) Aspartate Amino Transferase (AST) 24 U/L (<34) Total Bilirubin 1.1 mg/dL (0.2-1.0) H Urinalysis Test 08/19/24 16:02 Urine Color Light-yellow (Yellow) Urine Clarity Clear (Clear) Urine pH 7.0 (5.0-9.0) Urine Specific [place] 1.012 (1.001-1.035) Urine Protein Negative (Negative) Urine Ketones Negative (Negative) Urine Blood Negative /uL (Negative) Urine Nitrite Negative (Negative) Urine Bilirubin Negative (Negative) Urine Urobilinogen Normal mg/dL (Negative) Urine Leukocyte Esterase Negative /uL (Negative) Urine RBC <1 /hpf (0 - 3) Urine Microscopic WBC < 1 /HPF (0-3) Urine Squamous Epithelial Cells None seen /hpf (<5) Urine Bacteria None seen /hpf (None Seen) Urine Glucose Normal mg/dL (Normal) Labs and/or images reviewed: Labs reviewed by me, Image(s) reviewed by me Assessment/Plan Assessment/Plan The patient is a a 64-year-old male with past medical history of COPD, CKF, hypertension, hyperlipidemia, and [place] presented to [facility] with complaint of acute abdominal pain. Patient reports he has been experiencing abdominal pain for the past 3 days, rating pain 9/10 numeric scale, pressure sensation, shortness of breaths, getting worse today that prompted this visit. Patient was seen and evaluated in the ED, laboratory data shows WBC 3.5, platelets 129, sodium 141, potassium 4.8, BUN 23, creatinine 1.50, glucose 93, calcium 9.7, lipase 25, troponin 4, BNP 17.88, blood pressure 140/92, heart rate 90, temperature 98.3 F, O2 saturation 93% on oxygen. Abdomen/pelvis CT revealing extensive pulmonary emphysematous changes within the visualized portion of the lower lung golden, 1.5 cm right middle lobe nodules lesion, appears smaller to previous examination could represent scarring however neoplasm not rule out. Please see medication orders section in the computer. On my assessment, patient denies chest pain, no headache, no dizziness, no diaphoresis, currently on oxygen, no diarrhea, no nausea, no vomiting, no fever, no chills. Patient was admitted for further evaluation and medical management. Intractable abdominal pain Lower back pain Shortness of breaths Generalized weakness Plan discussed with: Patient Date of Service: Aug 20, 2024 Billing Provider: AL SANTANA DO Common Visit Codes: [id number] INP/OBS CARE(HIGH) AL SANTANA DO Aug 20, 2024 14:46
[2024-08-20] MEDS: SODIUM ZIRCONIUM CYCL 10 GM PAK PO ONE (16:14)
[2024-08-20] MEDS: HYDROcodone-ACET 5/325MG TAB PO PRN (21:04)
[2024-08-21] VITALS (10 sets, daily range): BP systolic 100–138; BP diastolic 63–104; PULSE 78–108; RESP 17–18; TEMP 97.8–98.5; O2SAT 91–96
[2024-08-21 10:21] LABS: Hepatitis B Surface Antibody Negative (Negative)
[2024-08-21 11:06] LABS: Hepatitis C Antibody Negative (Negative)
[2024-08-22] VITALS (10 sets, daily range): BP systolic 119–140; BP diastolic 86–99; PULSE 62–82; RESP 16–20; TEMP 96.3–98.4; O2SAT 92–98
[2024-08-23] VITALS (9 sets, daily range): BP systolic 108–128; BP diastolic 67–88; PULSE 63–87; RESP 16–20; TEMP 97.2–98.3; O2SAT 94–98
--- NOTE | 2024-08-23 10:40 | DVHPN2 ---
Reviewed: Care Plan, H&P Changes from previous H/P or p: No Changes General: Per HPI Eyes: No Pain, No Vision change, No Conjunctivae inflammation, No Eyelid inflammation, No Other, No Redness ENT: No Ear pain, No Ear discharge, No Nose pain, No Nose discharge, No Nose congestion, No Mouth pain, No Mouth swelling, No Throat pain, No Throat swelling, No Other Cardiovascular: No Chest Pain, No Palpitations, No Orthopnea, No Paroxysmal Noc. Dyspnea, No Edema, No Lt Headedness, No Other Respiratory: No Cough, No Dry; Shortness of breath; No SOB with excertion, No Wheezing, No Hemoptysis, No Pleuritic Pain, No Sputum, No Other Gastrointestinal: No Nausea, No Vomiting; Abdominal Pain; No Diarrhea, No Constipation, No Melena, No Hematochezia, No Other Genitourinary: No Dysuria, No Frequency, No Incontinence, No Hematuria, No Retention, No Other Musculoskeletal: No other, No neck pain, No shoulder pain, No arm pain; back pain; No hand pain, No leg pain, No foot pain Skin: No Rash, No Lesions, No Jaundice, No Bruising, No Other Objective Vitals Vital Signs Date Time Temp Pulse Resp B/P (MAP) Pulse Ox O2 Delivery O2 Flow Rate FiO2 08/23/24 10:20 95 Nasal Cannula 3.0 08/23/24 10:20 32 08/23/24 10:20 75 16 08/23/24 09:22 113/82 08/23/24 09:00 97.5 97.5 Intake/Output Intake and Output 08/23/24 07:00 Intake Total 1040 ml Balance 1040 ml Intake Oral 1040 ml # Voids 5 Medications Current Medications Medications Dose Ordered Sig/Jayla Route Start Time Stop Time Status Last Admin Dose Admin Hydralazine HCl 10 mg Q6HP PRN IV 08/19/24 19:30 Amlodipine Besylate 5 mg DAILY PO 08/20/24 10:00 08/23/24 09:21 5 MG Metoprolol Tartrate 25 mg BID PO 08/19/24 22:00 08/23/24 09:21 25 MG Albuterol 2.5 mg Q4HPRN PRN NEB 08/19/24 19:30 08/23/24 10:20 2.5 MG Ipratropium [place] 0.5 mg Q4HPRN PRN NEB 08/19/24 19:30 08/23/24 10:20 0.5 MG Sodium Chloride 10 ml Q8HR IV 08/19/24 22:00 08/23/24 06:00 10 ML Acetaminophen/ Hydrocodone Bitart 1 tab Q4HP PRN PO 08/19/24 19:30 08/21/24 16:59 1 TAB Ondansetron HCl 4 mg Q4HP PRN IV 08/19/24 19:30 Docusate Sodium 100 mg BIDPRN PRN PO 08/19/24 19:30 Acetaminophen 650 mg Q6HP PRN PO 08/19/24 19:30 Pantoprazole Sodium 40 mg DAILY IV 08/20/24 10:00 08/23/24 09:22 40 MG Nitroglycerin 0.4 mg Q5MINP PRN SL 08/19/24 20:15 Morphine Sulfate 2 mg Q30M PRN IV 08/19/24 20:15 Morphine Sulfate 2 mg Q4HPRN PRN IV 08/19/24 23:00 08/23/24 09:22 2 MG Laboratory Results Laboratory Tests 08/20/24 03:48 Urinalysis Test 08/19/24 16:02 Urine Color Light-yellow (Yellow) Urine Clarity Clear (Clear) Urine pH 7.0 (5.0-9.0) Urine Specific [place] 1.012 (1.001-1.035) Urine Protein Negative (Negative) Urine Ketones Negative (Negative) Urine Blood Negative /uL (Negative) Urine Nitrite Negative (Negative) Urine Bilirubin Negative (Negative) Urine Urobilinogen Normal mg/dL (Negative) Urine Leukocyte Esterase Negative /uL (Negative) Urine RBC <1 /hpf (0 - 3) Urine Microscopic WBC < 1 /HPF (0-3) Urine Squamous Epithelial Cells None seen /hpf (<5) Urine Bacteria None seen /hpf (None Seen) Urine Glucose Normal mg/dL (Normal) Labs and/or images reviewed: Labs reviewed by me, Image(s) reviewed by me Assessment/Plan Assessment/Plan The patient is a a 64-year-old male with past medical history of COPD, CKF, hypertension, hyperlipidemia, and [place] presented to [facility] with complaint of acute abdominal pain. Patient reports he has been experiencing abdominal pain for the past 3 days, rating pain 9/10 numeric scale, pressure sensation, shortness of breaths, getting worse today that prompted this visit. Patient was seen and evaluated in the ED, laboratory data shows WBC 3.5, platelets 129, sodium 141, potassium 4.8, BUN 23, creatinine 1.50, glucose 93, calcium 9.7, lipase 25, troponin 4, BNP 17.88, blood pressure 140/92, heart rate 90, temperature 98.3 F, O2 saturation 93% on oxygen. Abdomen/pelvis CT revealing extensive pulmonary emphysematous changes within the visualized portion of the lower lung golden, 1.5 cm right middle lobe nodules lesion, appears smaller to previous examination could represent scarring however neoplasm not rule out. Please see medication orders section in the computer. On my assessment, patient denies chest pain, no headache, no dizziness, no diaphoresis, currently on oxygen, no diarrhea, no nausea, no vomiting, no fever, no chills. Patient was admitted for further evaluation and medical management. Intractable abdominal pain Lower back pain Shortness of breaths Generalized weakness gilbert hyperkalemia leukopenia Plan discussed with: Patient My Orders Orders - AL SANTANA DO Procedure Category Date Status Time * Gi [facility] [employer] Manager CONS 08/22/24 Transmitted 14:03 Date of Service: Aug 21, 2024 Billing Provider: AL SANTANA DO Common Visit Codes: [id number] INP/OBS CARE(HIGH) AL SANTANA DO Aug 23, 2024 10:40
[2024-08-23 12:51] LABS: Basophils # (auto) 0 10 ^3/uL (0-0.2); Basophils % (auto) 0.6 % (0.0-2.0); Eosinophils # (auto) 0.2 10 ^3/uL (0-0.8); Eosinophils % (auto) 6.2 % (0.0-7.0); Hematocrit 46.3 % (41.0-53.0); Hemoglobin 15.7 g/dL (13.5-17.5); Lymphocytes # (auto) 1.3 10 ^3/uL (0.4-5.4); Lymphocytes % (auto) 40.7 % (10.0-50.0); Mean Corpuscular Hemoglobin 33.9 pg (28.0-32.0); Mean Corpuscular Hgb Conc. 33.8 g/dL (32.0-36.0); Mean Corpuscular Volume 100.2 fL (80.0-100.0); Monocytes # (auto) 0.4 10 ^3/uL (0-1.3); Monocytes % (auto) 12.4 % (0.0-12.0); Neutrophils # (auto) 1.2 10 ^3/uL (1.6-8.6); Neutrophils % (auto) 40.1 % (37.0-80.0); Nucleated Red Blood Cells % 0.3 %; Platelet Count (auto) 158 10^3/uL (140-450); Red Blood Cells 4.62 10^6/uL (4.5-5.90); Red Cell Distribution Width 13.2 % (11.8-14.3); White Blood Cell 3.1 10^3/uL (4.4-10.8)
[2024-08-23 13:11] LABS: Albumin 4.4 g/dL (3.2-4.8); Alkaline Phosphatase 65 U/L (46-116); Anion Gap 4 (5-15); Aspartate Aminotransferase 18 U/L (<34); BUN/Creatinine Ratio 14.2 (10.0-20.0); Bilirubin, Total 0.8 mg/dL (0.2-1.0); Blood Urea Nitrogen 22 mg/dL (9-23); Calcium 10.2 mg/dL (8.7-10.4); Carbon Dioxide 29 mmol/L (20-31); Chloride 106 mmol/L (98-107); Glucose 83 mg/dL (74-106); Potassium 4.8 mmol/L (3.5-5.1); Sodium 139 mmol/L (136-145); Total Protein 6.6 g/dL (5.7-8.2)
[2024-08-23 13:15] LABS: Alanine Aminotransferase < 9 U/L (7-40)
--- NOTE | 2024-08-23 14:23 | DVHINCON2 ---
GI Consult Consult Note GI consult note Date of Consultation: 08/23/2024 Chief Complaint: Abdominal pain Referring Physician: Dr. Lombardi H&P: 64-year-old male with past medical history of COPD, CKF, hypertension, hyperlipidemia, and [place] presents to ER with complains of abdominal pain, which has been on and off for the past two years, but getting worse in this past week. No nausea or vomiting. Last bowel movement today. Denies melena or red blood in stool. Last colonoscopy and endoscopy more than 20 years ago. Patient takes [place] at home as needed for pain, and does have a history of chronic constipation. Patient noticed improvement in his symptoms Past Medical History: CKF, COPD, High Lipids, HTN, [place] Past Surgical History: Hernia repair Social History: + smoking, no drinking ETOH Positive marijuana use Family History: Noncontributory Review of Systems: Constitutional: no fever, chill, weight loss HEENT: no eye pain, no hearing loss, no oral lesion, no scleral icterus Heart: no chest pain, no chest pressure Lung: no cough, no dyspnea with exertion Abdomen: see HPI Physical exam: General: NAD, AAOX3 Chest: lung golden clear to auscultation Heart: RRR, no murmur Abdomen: non-distended, no tenderness to palpation, +BS Labs: Labs Test 08/23/24 12:36 08/20/24 03:48 08/20/24 00:47 08/19/24 16:02 Range/Units White Blood Count 3.1 #L 4.4-10.8 10^3/uL Red Blood Count 4.62 4.5-5.90 10^6/uL Hemoglobin 15.7 13.5-17.5 g/dL Hematocrit 46.3 # 41.0-53.0 % Mean Corpuscular Volume 100.2 H 80.0-100.0 fL Mean Corpuscular Hemoglobin 33.9 H 28.0-32.0 pg Mean Corpuscular Hemoglobin Concent 33.8 32.0-36.0 g/dL Red Cell Distribution Width 13.2 11.8-14.3 % Platelet Count 158 140-450 10^3/uL Mean Platelet Volume 9.7 6.9-10.8 fL Neutrophils (%) (Auto) 40.1 37.0-80.0 % Lymphocytes (%) (Auto) 40.7 10.0-50.0 % Monocytes (%) (Auto) 12.4 H 0.0-12.0 % Eosinophils (%) (Auto) 6.2 0.0-7.0 % Basophils (%) (Auto) 0.6 0.0-2.0 % Neutrophils # (Auto) 1.2 L 1.6-8.6 10 ^3/uL Lymphocytes # (Auto) 1.3 0.4-5.4 10 ^3/uL Monocytes # (Auto) 0.4 0-1.3 10 ^3/uL Eosinophils # (Auto) 0.2 0-0.8 10 ^3/uL Basophils # (Auto) 0 0-0.2 10 ^3/uL Nucleated Red Blood Cells 0.3 % Sodium Level 139 136-145 mmol/L Potassium Level 4.8 3.5-5.1 mmol/L Chloride Level 106 98-107 mmol/L Carbon Dioxide Level 29 20-31 mmol/L Anion Gap 4 L 5-15 Blood Urea Nitrogen 22 9-23 mg/dL Creatinine 1.55 H 0.700-1.30 mg/dL Glomerular Filtration Rate Calc 50 >90 mL/min BUN/Creatinine Ratio 14.2 10.0-20.0 Serum Glucose 83 74-106 mg/dL Calcium Level 10.2 8.7-10.4 mg/dL Total Bilirubin 0.8 0.2-1.0 mg/dL Aspartate Amino Transferase (AST) 18 <34 U/L Alanine Aminotransferase (ALT) < 9 7-40 U/L Alkaline Phosphatase 65 46-116 U/L Total Protein 6.6 5.7-8.2 g/dL Albumin 4.4 3.2-4.8 g/dL Hepatitis B Surface Antibody Negative Negative Hepatitis C Antibody Negative Negative Troponin I High Sensitivity 5 </=54 ng/L Urine Color Light-yellow Yellow Urine Clarity Clear Clear Urine pH 7.0 5.0-9.0 Urine Specific [place] 1.012 1.001-1.035 Urine Protein Negative Negative Urine Ketones Negative Negative Urine Blood Negative Negative /uL Urine Nitrite Negative Negative Urine Bilirubin Negative Negative Urine Urobilinogen Normal Negative mg/dL Urine Leukocyte Esterase Negative Negative /uL Urine RBC <1 0 - 3 /hpf Urine Microscopic WBC < 1 0-3 /HPF Urine Squamous Epithelial Cells None seen <5 /hpf Urine Bacteria None seen None Seen /hpf Urine Glucose Normal Normal mg/dL Test 08/19/24 13:34 Range/Units B-Type Natriuretic Peptide 17.88 0-100 pg/mL Lipase 25 12-53 U/L Imaging: CT abdomen pelvis IMPRESSION: Extensive pulmonary emphysematous changes within the visualized portion of the lower lung golden. 1.5 cm right middle lobe nodular lesion, appears similar to previous examination could represent scarring however neoplasm not ruled out. Recommend follow-up per Fleischner society criteria. Moderate volume stool within the colon. Numerous bilateral renal cysts. Atherosclerotic disease. Other findings as described Assessment: Abdominal pain improving Constipation Plan: Discussed with Dr. Richard Nguyen. Recommend patient to be discharged home with lactulose Patient is to follow-up in GI clinic in 2-3 weeks for scheduling of elective GI procedures as needed, patient is agreeable to this plan ER if symptoms worsen Discussed plan with patient and RN Thank you for this consult Date of Service: Aug 23, 2024 Billing Provider: CELINA ANGEL Common Visit Codes: CONSULT ONLY Consultation Codes: [id number] CONSULT <45MIN CELINA ANGEL Aug 23, 2024 14:23
[2024-08-24] VITALS (7 sets, daily range): BP systolic 96–138; BP diastolic 68–109; PULSE 60–87; RESP 16–18; TEMP 36.6; O2SAT 90–98
[2024-08-24] MEDS ORDERED: LEVO500T91 PO (13:18)
--- NOTE | 2024-08-24 13:19 | DVHDS2 ---
Discharge Summary Date of Admission Aug 19, 2024 at 20:09 Date of Discharge: Aug 24, 2024 Labs/Diagnostic Data: Laboratory Results Test 08/23/24 12:36 08/20/24 03:48 08/20/24 00:47 08/19/24 16:02 White Blood Count 3.1 10^3/uL (4.4-10.8) Red Blood Count 4.62 10^6/uL (4.5-5.90) Hemoglobin 15.7 g/dL (13.5-17.5) Hematocrit 46.3 % (41.0-53.0) Mean Corpuscular Volume 100.2 fL (80.0-100.0) Mean Corpuscular Hemoglobin 33.9 pg (28.0-32.0) Mean Corpuscular Hemoglobin Concent 33.8 g/dL (32.0-36.0) Red Cell Distribution Width 13.2 % (11.8-14.3) Platelet Count 158 10^3/uL (140-450) Mean Platelet Volume 9.7 fL (6.9-10.8) Neutrophils (%) (Auto) 40.1 % (37.0-80.0) Lymphocytes (%) (Auto) 40.7 % (10.0-50.0) Monocytes (%) (Auto) 12.4 % (0.0-12.0) Eosinophils (%) (Auto) 6.2 % (0.0-7.0) Basophils (%) (Auto) 0.6 % (0.0-2.0) Neutrophils # (Auto) 1.2 10 ^3/uL (1.6-8.6) Lymphocytes # (Auto) 1.3 10 ^3/uL (0.4-5.4) Monocytes # (Auto) 0.4 10 ^3/uL (0-1.3) Eosinophils # (Auto) 0.2 10 ^3/uL (0-0.8) Basophils # (Auto) 0 10 ^3/uL (0-0.2) Nucleated Red Blood Cells 0.3 % Sodium Level 139 mmol/L (136-145) Potassium Level 4.8 mmol/L (3.5-5.1) Chloride Level 106 mmol/L (98-107) Carbon Dioxide Level 29 mmol/L (20-31) Anion Gap 4 (5-15) Blood Urea Nitrogen 22 mg/dL (9-23) Creatinine 1.55 mg/dL (0.700-1.30) Glomerular Filtration Rate Calc 50 mL/min (>90) BUN/Creatinine Ratio 14.2 (10.0-20.0) Serum Glucose 83 mg/dL (74-106) Calcium Level 10.2 mg/dL (8.7-10.4) Total Bilirubin 0.8 mg/dL (0.2-1.0) Aspartate Amino Transferase (AST) 18 U/L (<34) Alanine Aminotransferase (ALT) < 9 U/L (7-40) Alkaline Phosphatase 65 U/L (46-116) Total Protein 6.6 g/dL (5.7-8.2) Albumin 4.4 g/dL (3.2-4.8) Hepatitis B Surface Antibody Negative (Negative) Hepatitis C Antibody Negative (Negative) Troponin I High Sensitivity 5 ng/L (</=54) Urine Color Light-yellow (Yellow) Urine Clarity Clear (Clear) Urine pH 7.0 (5.0-9.0) Urine Specific [place] 1.012 (1.001-1.035) Urine Protein Negative (Negative) Urine Ketones Negative (Negative) Urine Blood Negative /uL (Negative) Urine Nitrite Negative (Negative) Urine Bilirubin Negative (Negative) Urine Urobilinogen Normal mg/dL (Negative) Urine Leukocyte Esterase Negative /uL (Negative) Urine RBC <1 /hpf (0 - 3) Urine Microscopic WBC < 1 /HPF (0-3) Urine Squamous Epithelial Cells None seen /hpf (<5) Urine Bacteria None seen /hpf (None Seen) Urine Glucose Normal mg/dL (Normal) Test 08/19/24 13:34 B-Type Natriuretic Peptide 17.88 pg/mL (0-100) Lipase 25 U/L (12-53) Other Laboratory Tests 08/23/24 12:36 Brief Hx & Hospital Course: The patient is a a 64-year-old male with past medical history of COPD, CKF, hypertension, hyperlipidemia, and [place] presented to [facility] with complaint of acute abdominal pain. Patient reports he has been experiencing abdominal pain for the past 3 days, rating pain 9/10 numeric scale, pressure sensation, shortness of breaths, getting worse today that prompted this visit. Patient was seen and evaluated in the ED, laboratory data shows WBC 3.5, platelets 129, sodium 141, potassium 4.8, BUN 23, creatinine 1.50, glucose 93, calcium 9.7, lipase 25, troponin 4, BNP 17.88, blood pressure 140/92, heart rate 90, temperature 98.3 F, O2 saturation 93% on oxygen. Abdomen/pelvis CT revealing extensive pulmonary emphysematous changes within the visualized portion of the lower lung golden, 1.5 cm right middle lobe nodules lesion, appears smaller to previous examination could represent scarring however neoplasm not rule out. Please see medication orders section in the computer. On my assessment, patient denies chest pain, no headache, no dizziness, no diaphoresis, currently on oxygen, no diarrhea, no nausea, no vomiting, no fever, no chills. Patient was admitted for further evaluation and medical management. Intractable abdominal pain gastroenteritis Lower back pain Shortness of breaths Generalized weakness gilbert hyperkalemia leukopenia discharged to home Condition at Discharge: Fair Final Diagnosis/Problems List see above Discharge Disposition: Home Discharge Instruct/Medications Diet: Cardiac 2g Na,low cholest Activity: No Restrictions, As Tolerated Discharge Statement: "Patient was advised to return to the ER or call 911 if any headaches, dizziness, shortness of breath, chest pain, abdominal pain, bleeding, fevers, or worsening of medical condition. Patient was counseled about treatment plan, medications, possible side effects, patientverbalized understanding. All questions were answered to the best of my ability. This discharge took greater then 30 minutes in planning, reviewing documentation, counseling the patient, and discussing with other team members." ASSESSMENT ASSESSMENT Assessment AL SANTANA DO Aug 24, 2024 13:18
--- NOTE | 2024-08-24 14:34 | DVHINCON2 ---
Date of service: Aug 24, [address] Al Santana Reason for Consultation Acute kidney injury History of Present Illness Nelson Salazar is a 64-year-old M with Past Medical History pertinent for COPD, CKF, Hypertension, Hyperlipidemia and [place] who presented to the hospital with complaint of acute abdominal pain. While in ED, initial labs were remarkable for WBC 3.5, Platelets 129, Na 141, K 4.8, BUN 23, Creatinine 1.50, Glucose 93, Calcium 9.7, Lipase 25, Troponin 4, BNP 17.88. CT Abdomen/pelvis revealed extensive pulmonary emphysematous changes within the visualized portion of the lower lung golden, 1.5 cm right middle lobe nodules lesion, appears smaller to previous examination could represent scarring however neoplasm not rule out.GI consulted. Patient denies any current abdominal pain, nausea or vomiting. Denies melena or red blood in stool. Patient reports improvement in his symptoms. Renal function labs have remained stable. Allergies: Coded Allergies: Aluminum Hydroxide (Verified Allergy, Severe, 05/14/21) Aspirin (Verified Allergy, Severe, 05/14/21) Caffeine (Verified Allergy, Severe, 05/14/21) Citric Acid (Verified Allergy, Severe, 05/14/21) Magnesium Hydroxide (Verified Allergy, Severe, 05/14/21) Sodium Bicarbonate (Verified Allergy, Severe, 05/14/21) Ibuprofen (Verified Allergy, Unknown, 05/14/21) Home Meds Active Scripts Levofloxacin Hemihydrate (LEVOFLOXACIN) 500 Mg Tab, 1 TAB PO DAILY, #7 TAB Prov:AL SANTANA DO 08/24/24 Azithromycin (Zithromax) 1 Gm Pow, 1 PACK PO ONCE, #1 PACK Prov:CRISTAL CRANE MD 04/21/23 Prednisone (Prednisone) 20 Mg Tab, 20 MG PO BID for 5 Days, #10 MG Prov:AXEL BOLTON RESIDENT 04/17/23 Ipratropium-Albuterol (COMBIVENT RESPIMAT) Respimat Aer, 1 UNIT IN TID for 30 Days, AER 1 puff each time, as needed, TID for shortness of breath Prov:AL SANTANA DO 02/26/23 Lisinopril (Lisinopril) 5 Mg Tab, 5 MG PO DAILY for 30 Days, #30 TAB 11 Refills Prov:AL SANTANA DO 02/26/23 Empagliflozin (Jardiance) 10 Mg Tab, 10 MG PO QAM for 30 Days, #30 TAB 11 Refills Prov:AL SANTANA DO 02/26/23 Amlodipine Besylate (NORVASC TABLET) 5 Mg Tb, 10 MG PO DAILY for 30 Days, #60 TAB 11 Refills Prov:AL SANTANA DO 02/26/23 Spironolactone (Spironolactone) 25 Mg Tab, 1 TAB PO DAILY, #90 TAB 1 Refill Prov:KARLEE SOLIZ MD 01/11/23 Clonidine Hydrochloride (Clonidine Hcl) 0.1 Mg Tab, 0.1 MG PO BID for 30 Days, #60 TAB Prov:KARLEE SOLIZ MD 01/11/23 Montelukast Sodium (MONTELUKAST SODIUM) 10 Mg Tab, 1 TAB PO HS, #30 Prov:JEAN BLANK 05/27/21 Reported Medications Albuterol Sulfate (VENTOLIN MDI) 90 Mcg Ih, 2 PUFF INH Q4H PRN 02/23/23 Budesonide-Formoterol Fumarate (Budesonide/Formoterol Fum 160-4.5 Mcg/Act) 1 Aer Aer, 1 PUFF INH BID 02/23/23 Pantoprazole Sodium Sesquihydr (Pantoprazole Sodium) 40 Mg Tab, 1 TAB PO QAM 05/15/21 Nicotine (Nicotine Transdermal Syst) 14 Mg/24 Hr Dis, 1 PATCH TOP DAILYPRN 05/15/21 Family History: Chronic obstructive pulmonary disease FH: cancer Hypercholesterolemia Hypertension G8 MOTHER G8 FATHER Review of Systems Constitutional: no fever, chill, weight loss HEENT: no eye pain, no hearing loss, no oral lesion, no scleral icterus Heart: no chest pain, no chest pressure Lung: no cough, no dyspnea with exertion Abdomen: no abdominal pain, nausea or vomiting H&P Exam Vital Signs/I&O Vital Sign Date Time Temp Pulse Resp B/P (MAP) Pulse Ox O2 Delivery O2 Flow Rate FiO2 08/24/24 12:41 97.9 69 16 109/86 (94) 90 97.9 08/24/24 10:00 Room Air* 0 21 Intake and Output 08/23/24 08/24/24 19:00 07:00 Intake Total 700 ml 1200 ml Output Total 800 ml 2 ml Balance -100 ml 1198 ml Intake Oral 700 ml 1200 ml Output Urine Total 800 ml Stool Total 2 ml Physical Exam Vitals and nursing notes reviewed. General Appearance: Cooperative, No acute distress HEENT: Atraumatic, PERRLA, EOMI, Mucous membr. moist/pink Respiratory: Normal air movement Cardiovascular: Regular rate, Normal S1, Normal S2, No murmurs Abdominal: Normal bowel sounds, Soft, No hepatospenomegaly, No masses Extremities: No clubbing, No cyanosis, No edema, Normal pulses Skin: No rashes, No breakdown, No significant lesion Neuro: Alert, Oriented X3, Normal speech, Normal tone, Sensation intact, Cranial nerves 3-12 NL, Reflexes 2+ Psych/Mental Status: Mental status NL, Mood NL Labs/Diagnostic Data Labs/Diagnostic Data Laboratory Tests Test 08/23/24 12:36 08/20/24 03:48 08/20/24 00:47 08/19/24 16:02 Range/Units White Blood Count 3.1 #L 4.6 # 4.4-10.8 10^3/uL Red Blood Count 4.62 5.12 4.5-5.90 10^6/uL Hemoglobin 15.7 17.4 13.5-17.5 g/dL Hematocrit 46.3 # 51.8 41.0-53.0 % Mean Corpuscular Volume 100.2 H 101.1 H 80.0-100.0 fL Mean Corpuscular Hemoglobin 33.9 H 34.0 H 28.0-32.0 pg Mean Corpuscular Hemoglobin Concent 33.8 33.6 32.0-36.0 g/dL Red Cell Distribution Width 13.2 13.5 11.8-14.3 % Platelet Count 158 133 L 140-450 10^3/uL Mean Platelet Volume 9.7 10.0 6.9-10.8 fL Neutrophils (%) (Auto) 40.1 45.6 37.0-80.0 % Lymphocytes (%) (Auto) 40.7 38.8 10.0-50.0 % Monocytes (%) (Auto) 12.4 H 11.1 0.0-12.0 % Eosinophils (%) (Auto) 6.2 4.0 0.0-7.0 % Basophils (%) (Auto) 0.6 0.5 0.0-2.0 % Neutrophils # (Auto) 1.2 L 2.1 1.6-8.6 10 ^3/uL Lymphocytes # (Auto) 1.3 1.8 0.4-5.4 10 ^3/uL Monocytes # (Auto) 0.4 0.5 0-1.3 10 ^3/uL Eosinophils # (Auto) 0.2 0.2 0-0.8 10 ^3/uL Basophils # (Auto) 0 0 0-0.2 10 ^3/uL Nucleated Red Blood Cells 0.3 0.4 % Sodium Level 139 139 136-145 mmol/L Potassium Level 4.8 5.2 H 3.5-5.1 mmol/L Chloride Level 106 106 98-107 mmol/L Carbon Dioxide Level 29 27 20-31 mmol/L Anion Gap 4 L 6 5-15 Blood Urea Nitrogen 22 18 9-23 mg/dL Creatinine 1.55 H 1.40 H 0.700-1.30 mg/dL Glomerular Filtration Rate Calc 50 57 >90 mL/min BUN/Creatinine Ratio 14.2 12.9 10.0-20.0 Serum Glucose 83 90 74-106 mg/dL Calcium Level 10.2 9.7 8.7-10.4 mg/dL Total Bilirubin 0.8 1.1 H 0.2-1.0 mg/dL Aspartate Amino Transferase (AST) 18 24 <34 U/L Alanine Aminotransferase (ALT) < 9 15 7-40 U/L Alkaline Phosphatase 65 68 46-116 U/L Total Protein 6.6 7.5 5.7-8.2 g/dL Albumin 4.4 4.9 H 3.2-4.8 g/dL Hepatitis B Surface Antibody Negative Negative Hepatitis C Antibody Negative Negative Troponin I High Sensitivity 5 </=54 ng/L Urine Color Light-yellow Yellow Urine Clarity Clear Clear Urine pH 7.0 5.0-9.0 Urine Specific [place] 1.012 1.001-1.035 Urine Protein Negative Negative Urine Ketones Negative Negative Urine Blood Negative Negative /uL Urine Nitrite Negative Negative Urine Bilirubin Negative Negative Urine Urobilinogen Normal Negative mg/dL Urine Leukocyte Esterase Negative Negative /uL Urine RBC <1 0 - 3 /hpf Urine Microscopic WBC < 1 0-3 /HPF Urine Squamous Epithelial Cells None seen <5 /hpf Urine Bacteria None seen None Seen /hpf Urine Glucose Normal Normal mg/dL Test 08/19/24 14:39 08/19/24 13:34 Range/Units Troponin I High Sensitivity 4 5 </=54 ng/L White Blood Count 3.5 L 4.4-10.8 10^3/uL Red Blood Count 4.94 4.5-5.90 10^6/uL Hemoglobin 16.6 13.5-17.5 g/dL Hematocrit 49.3 41.0-53.0 % Mean Corpuscular Volume 99.9 80.0-100.0 fL Mean Corpuscular Hemoglobin 33.6 H 28.0-32.0 pg Mean Corpuscular Hemoglobin Concent 33.7 32.0-36.0 g/dL Red Cell Distribution Width 13.2 11.8-14.3 % Platelet Count 129 L 140-450 10^3/uL Mean Platelet Volume 10.4 6.9-10.8 fL Neutrophils (%) (Auto) 49.5 37.0-80.0 % Lymphocytes (%) (Auto) 36.1 10.0-50.0 % Monocytes (%) (Auto) 9.2 0.0-12.0 % Eosinophils (%) (Auto) 4.7 0.0-7.0 % Basophils (%) (Auto) 0.5 0.0-2.0 % Neutrophils # (Auto) 1.7 1.6-8.6 10 ^3/uL Lymphocytes # (Auto) 1.2 0.4-5.4 10 ^3/uL Monocytes # (Auto) 0.3 0-1.3 10 ^3/uL Eosinophils # (Auto) 0.2 0-0.8 10 ^3/uL Basophils # (Auto) 0 0-0.2 10 ^3/uL Nucleated Red Blood Cells 0.1 % Sodium Level 141 136-145 mmol/L Potassium Level 4.8 3.5-5.1 mmol/L Chloride Level 107 98-107 mmol/L Carbon Dioxide Level 29 20-31 mmol/L Anion Gap 5 5-15 Blood Urea Nitrogen 23 9-23 mg/dL Creatinine 1.50 H 0.700-1.30 mg/dL Glomerular Filtration Rate Calc 52 >90 mL/min BUN/Creatinine Ratio 15.3 10.0-20.0 Serum Glucose 93 74-106 mg/dL Calcium Level 9.7 8.7-10.4 mg/dL Total Bilirubin 0.9 0.2-1.0 mg/dL Aspartate Amino Transferase (AST) 23 <34 U/L Alanine Aminotransferase (ALT) 16 7-40 U/L Alkaline Phosphatase 70 46-116 U/L B-Type Natriuretic Peptide 17.88 0-100 pg/mL Total Protein 7.2 5.7-8.2 g/dL Albumin 4.9 H 3.2-4.8 g/dL Lipase 25 12-53 U/L Assessment EVAN on CKD Abdominal pain Constipation Plan/Recommendation Agreement with your ongoing assessment and plan of care. Cleared by GI. Discharge planning in progress. Renal function labs are stable. Outpatient follow up with Nephrology recommended. Plan discussed with: Patient (RN) ZAYNAB FERRARA DO Aug 24, 2024 14:34
--- NOTE | 2024-09-01 22:03 | DVHPN2 ---
Reviewed: Care Plan, H&P, Labs, Medications, Previous Orders, Radiology Changes from previous H/P or p: No Changes General: Per HPI Eyes: No Pain, No Vision change, No Conjunctivae inflammation, No Eyelid inflammation, No Other, No Redness ENT: No Ear pain, No Ear discharge, No Nose pain, No Nose discharge, No Nose congestion, No Mouth pain, No Mouth swelling, No Throat pain, No Throat swelling, No Other Cardiovascular: No Chest Pain, No Palpitations, No Orthopnea, No Paroxysmal Noc. Dyspnea, No Edema, No Lt Headedness, No Other Respiratory: No Cough, No Dry; Shortness of breath; No SOB with excertion, No Wheezing, No Hemoptysis, No Pleuritic Pain, No Sputum, No Other Gastrointestinal: No Nausea, No Vomiting; Abdominal Pain; No Diarrhea, No Constipation, No Melena, No Hematochezia, No Other Genitourinary: No Dysuria, No Frequency, No Incontinence, No Hematuria, No Retention, No Other Musculoskeletal: No other, No neck pain, No shoulder pain, No arm pain; back pain; No hand pain, No leg pain, No foot pain Skin: No Rash, No Lesions, No Jaundice, No Bruising, No Other Objective General Appearance: Alert, Oriented X3, Cooperative Cardiovascular: Regular rate, Normal S1, Normal S2 Laboratory Results Laboratory Tests 08/23/24 12:36 Urinalysis Test 08/19/24 16:02 Urine Color Light-yellow (Yellow) Urine Clarity Clear (Clear) Urine pH 7.0 (5.0-9.0) Urine Specific [place] 1.012 (1.001-1.035) Urine Protein Negative (Negative) Urine Ketones Negative (Negative) Urine Blood Negative /uL (Negative) Urine Nitrite Negative (Negative) Urine Bilirubin Negative (Negative) Urine Urobilinogen Normal mg/dL (Negative) Urine Leukocyte Esterase Negative /uL (Negative) Urine RBC <1 /hpf (0 - 3) Urine Microscopic WBC < 1 /HPF (0-3) Urine Squamous Epithelial Cells None seen /hpf (<5) Urine Bacteria None seen /hpf (None Seen) Urine Glucose Normal mg/dL (Normal) Assessment/Plan Assessment/Plan The patient is a a 64-year-old male with past medical history of COPD, CKF, hypertension, hyperlipidemia, and [place] presented to [facility] with complaint of acute abdominal pain. Patient reports he has been experiencing abdominal pain for the past 3 days, rating pain 9/10 numeric scale, pressure sensation, shortness of breaths, getting worse today that prompted this visit. Patient was seen and evaluated in the ED, laboratory data shows WBC 3.5, platelets 129, sodium 141, potassium 4.8, BUN 23, creatinine 1.50, glucose 93, calcium 9.7, lipase 25, troponin 4, BNP 17.88, blood pressure 140/92, heart rate 90, temperature 98.3 F, O2 saturation 93% on oxygen. Abdomen/pelvis CT revealing extensive pulmonary emphysematous changes within the visualized portion of the lower lung golden, 1.5 cm right middle lobe nodules lesion, appears smaller to previous examination could represent scarring however neoplasm not rule out. Please see medication orders section in the computer. On my assessment, patient denies chest pain, no headache, no dizziness, no diaphoresis, currently on oxygen, no diarrhea, no nausea, no vomiting, no fever, no chills. Patient was admitted for further evaluation and medical management. Intractable abdominal pain Lower back pain Shortness of breaths Generalized weakness Plan discussed with: Patient Date of Service: Aug 21, 2024 Billing Provider: AL SANTANA DO Common Visit Codes: [id number] INP/OBS CARE(HIGH) AL SANTANA DO Sep 01, 2024 22:03
--- NOTE | 2024-09-01 22:04 | DVHPN2 ---
Reviewed: Care Plan, H&P, Labs, Medications, Previous Orders, Radiology Changes from previous H/P or p: No Changes General: Per HPI Eyes: No Pain, No Vision change, No Conjunctivae inflammation, No Eyelid inflammation, No Other, No Redness ENT: No Ear pain, No Ear discharge, No Nose pain, No Nose discharge, No Nose congestion, No Mouth pain, No Mouth swelling, No Throat pain, No Throat swelling, No Other Cardiovascular: No Chest Pain, No Palpitations, No Orthopnea, No Paroxysmal Noc. Dyspnea, No Edema, No Lt Headedness, No Other Respiratory: No Cough, No Dry; Shortness of breath; No SOB with excertion, No Wheezing, No Hemoptysis, No Pleuritic Pain, No Sputum, No Other Gastrointestinal: No Nausea, No Vomiting; Abdominal Pain; No Diarrhea, No Constipation, No Melena, No Hematochezia, No Other Genitourinary: No Dysuria, No Frequency, No Incontinence, No Hematuria, No Retention, No Other Musculoskeletal: No other, No neck pain, No shoulder pain, No arm pain; back pain; No hand pain, No leg pain, No foot pain Skin: No Rash, No Lesions, No Jaundice, No Bruising, No Other Objective General Appearance: Alert, Oriented X3, Cooperative Cardiovascular: Regular rate, Normal S1, Normal S2 Laboratory Results Laboratory Tests 08/23/24 12:36 Urinalysis Test 08/19/24 16:02 Urine Color Light-yellow (Yellow) Urine Clarity Clear (Clear) Urine pH 7.0 (5.0-9.0) Urine Specific [place] 1.012 (1.001-1.035) Urine Protein Negative (Negative) Urine Ketones Negative (Negative) Urine Blood Negative /uL (Negative) Urine Nitrite Negative (Negative) Urine Bilirubin Negative (Negative) Urine Urobilinogen Normal mg/dL (Negative) Urine Leukocyte Esterase Negative /uL (Negative) Urine RBC <1 /hpf (0 - 3) Urine Microscopic WBC < 1 /HPF (0-3) Urine Squamous Epithelial Cells None seen /hpf (<5) Urine Bacteria None seen /hpf (None Seen) Urine Glucose Normal mg/dL (Normal) Assessment/Plan Assessment/Plan The patient is a a 64-year-old male with past medical history of COPD, CKF, hypertension, hyperlipidemia, and [place] presented to [facility] with complaint of acute abdominal pain. Patient reports he has been experiencing abdominal pain for the past 3 days, rating pain 9/10 numeric scale, pressure sensation, shortness of breaths, getting worse today that prompted this visit. Patient was seen and evaluated in the ED, laboratory data shows WBC 3.5, platelets 129, sodium 141, potassium 4.8, BUN 23, creatinine 1.50, glucose 93, calcium 9.7, lipase 25, troponin 4, BNP 17.88, blood pressure 140/92, heart rate 90, temperature 98.3 F, O2 saturation 93% on oxygen. Abdomen/pelvis CT revealing extensive pulmonary emphysematous changes within the visualized portion of the lower lung golden, 1.5 cm right middle lobe nodules lesion, appears smaller to previous examination could represent scarring however neoplasm not rule out. Please see medication orders section in the computer. On my assessment, patient denies chest pain, no headache, no dizziness, no diaphoresis, currently on oxygen, no diarrhea, no nausea, no vomiting, no fever, no chills. Patient was admitted for further evaluation and medical management. Intractable abdominal pain Lower back pain Shortness of breaths Generalized weakness Plan discussed with: Patient Date of Service: Aug 22, 2024 Billing Provider: AL SANTANA DO Common Visit Codes: [id number] INP/OBS CARE(HIGH) AL SANTANA DO Sep 01, 2024 22:04
== END 2024-08-24 16:05 | disposition home or self-care (01) | DRG 247 ==
LOC: ER 12:42 → OVERFLOW 20:09 → CENTRAL 08-20 19:36
PROVIDERS: ADMIT Internal Medicine; ATTEND Internal Medicine
DX: K56.41 Fecal impaction (principal); J96.01 Acute respiratory failure with hypoxia; N17.9 Acute kidney failure, unspecified; I13.0 Hypertensive heart and chronic kidney disease with heart failure and stage 1 through stage 4 chronic kidney disease, or unspecified chronic kidney disease; I50.9 Heart failure, unspecified; K52.9 Noninfective gastroenteritis and colitis, unspecified; E78.5 Hyperlipidemia, unspecified; N18.9 Chronic kidney disease, unspecified; J44.9 Chronic obstructive pulmonary disease, unspecified; M54.50 Low back pain, unspecified; R53.1 Weakness; Z88.6 Allergy status to analgesic agent; Z87.891 Personal history of nicotine dependence; Z83.3 Family history of diabetes mellitus; Z82.5 Family history of asthma and other chronic lower respiratory diseases; Z82.49 Family history of ischemic heart disease and other diseases of the circulatory system
CPT/HCPCS: 36415; 74176; 80053; 81001; 83690; 83880; 84484; 85025; 86706; 86803; 94640; 96374; G0378; J2470